=== PATIENT | female | born 1985 | race African-American/Black ===

== ENCOUNTER 2018-08-20 04:06 | Emergency (ER) | payer OTHER ==
[2018-08-20 06:31] LABS: BASO % 0.5 % (0.0-1.0); EOS # 0.2 10^3/uL (0.0-0.50); EOS % 2.6 % (0.0-3.0); HEMATOCRIT 37.4 % (36.0-47.0); HEMOGLOBIN 12.2 g/dl (12.0-15.5); IMMATURE GRANULOCYTE % 0.3 % (0-3.0); LYMPH # 3.5 10^3/uL (1.5-4.5); LYMPH % 45.6 % (24.0-44.0); MEAN CORPUSCULAR HGB CONC 32.6 g/dl (32.0-36.5); MONO # 0.6 10^3/uL (0.0-0.8); MONO % 7.3 % (0.0-5.0); NEUTROPHILS # 3.3 10^3/uL (1.8-7.7); NEUTROPHILS % 43.7 % (36.0-66.0); PLATELET COUNT, AUTOMATED 381 10^3/uL (150-450); RED CELL DISTRIBUTION WIDTH 13.2 % (11.5-14.5); WHITE BLOOD COUNT 7.7 10^3/uL (4.0-10.0)
[2018-08-20 07:01] LABS: ANION GAP 10 MEQ/L (8-16); BLOOD UREA NITROGEN 8 MG/DL (7-18); CALCIUM LEVEL 9.6 MG/DL (8.5-10.1); CARBON DIOXIDE LEVEL 24 MEQ/L (21-32); CHLORIDE LEVEL 105 MEQ/L (98-107); GLOMERULAR FILTRATION RATE > 60.0 (>60); GLUCOSE, FASTING 90 MG/DL (70-100); HCG, SERUM QUANTITATIVE 4078 MIU/ML; POTASSIUM SERUM 3.8 MEQ/L (3.5-5.1); SODIUM LEVEL 139 MEQ/L (136-145)
[2018-08-20 07:28] LABS: AMORPHOUS SEDIMENT RFX SMALL (NEGATIVE); KETONE, URINE AUTO RFX TRACE mg/dL (NEGATIVE); MUCUS, URINE RFX LARGE (NEGATIVE); NITRITE, URINE AUTO RFX NEGATIVE (NEGATIVE); RBC, URINE AUTO RFX 2 /HPF (0-3); SQUAM EPITHELIAL CELL UR AURFX 24 /HPF (0-6); TRANSITIONAL EPITHELIAL AU RFX 1 /HPF
[2018-08-20 07:40] LABS: LEUKOCYTE ESTERASE UR AUTO RFX 1+ (NEGATIVE); WBC, URINE AUTO RFX 28 /HPF (0-3)
[2018-08-20 08:38] LABS: CHLAMYDIA DNA AMPLIFICATION NEGATIVE (NEGATIVE); GC DNA AMPLIFICATION NEGATIVE (NEGATIVE)
== END 2018-08-20 08:40 | disposition home or self-care (01) ==
LOC: M ED 04:06
DX: O26.891 Other specified pregnancy related conditions, first trimester (principal); R10.2 Pelvic and perineal pain; M54.5 Low back pain; O99.281 Endocrine, nutritional and metabolic diseases complicating pregnancy, first trimester; E28.2 Polycystic ovarian syndrome; Z88.0 Allergy status to penicillin; Z79.899 Other long term (current) drug therapy; Z3A.01 Less than 8 weeks gestation of pregnancy
CPT/HCPCS: 76801

== ENCOUNTER 2018-09-21 16:45 | Emergency (ER) | payer OTHER ==
[~2018-09-21] VITALS: Ht 154.9 cm; Wt 90.9 kg
[~2018-09-21 16:45] MED LIST: LOTE0.5S OU; MACR100C43 PO
[2018-09-21] MEDS ORDERED: ONDANSETRON 4MG/2ML VIAL (J2405) IV ONE ×2 (17:45→19:15)
[2018-09-21] MEDS ORDERED: NS 1,000 ML IV ONE (17:45)
[2018-09-21 18:03] LABS: BASO % 0.6 % (0.0-1.0); EOS # 0.2 10^3/uL (0.0-0.50); EOS % 3.7 % (0.0-3.0); HEMATOCRIT 34.2 % (36.0-47.0); HEMOGLOBIN 11.4 g/dl (12.0-15.5); LYMPH # 2.1 10^3/uL (1.5-4.5); MEAN CORPUSCULAR HEMOGLOBIN 29.6 pg (27.0-33.0); MEAN CORPUSCULAR HGB CONC 33.3 g/dl (32.0-36.5); MEAN CORPUSCULAR VOLUME 88.8 fl (80.0-96.0); MONO # 0.6 10^3/uL (0.0-0.8); MONO % 9.4 % (0.0-5.0); NEUTROPHILS # 3.5 10^3/uL (1.8-7.7); PLATELET COUNT, AUTOMATED 281 10^3/uL (150-450); RED BLOOD COUNT 3.85 10^6/uL (4.00-5.40); WHITE BLOOD COUNT 6.5 10^3/uL (4.0-10.0)
--- NOTE | 2018-09-21 18:54 | REPVR ---
EXAM: US First Trimester, Transabdominal EXAM DATE/TIME: 09/21/2018 6:00 PM CLINICAL HISTORY: 33 years old, female; Signs and symptoms; Lmp or gestational age (in weeks): 10; Other: +(n/v); ; Additional info: Vaginal bleeding TECHNIQUE: Real-time transabdominal obstetrical ultrasound of the maternal pelvis and a first trimester , less than 14 weeks 0 days, with image documentation. COMPARISON: 1ST TRIMESTER US 08/20/2018 6:23 AM FINDINGS: GESTATION: Gestation: There is a single intrauterine gestational sac. Heart rate: Cardiac activity noted at a rate of 163 beats per minute. Placenta: No subchorionic fluid collections noted. Sabattus-Rump length: There is a pole with a crown-rump length measurement of 3.2 cm for a menstrual age of 10 weeks and 1 day. MATERNAL: Uterus: Intrauterine gestational sac as described above Cervix: Unremarkable. Right adnexa: Right ovary not seen as a separate structure. Left adnexa: The left ovary measures 2.7 x 2.9 x 2.7 cm. Intraperitoneal: No intraperitoneal free fluid. IMPRESSION: Single live intrauterine with an estimated menstrual age of 10 weeks and one day. This is concordant with the expected gestational age race on previous ultrasound dated 08/20/2018. 2. No subchorionic fluid collections noted. Electronically signed by: Darcy Matta On 09/21/2018 18:53:49 PM
[2018-09-21] MEDS ORDERED: DICL10TA PO (19:12)
[2018-09-21 20:03] VITALS: BP 124/75
== END 2018-09-21 20:05 | disposition home or self-care (01) ==
LOC: M ED 16:45
DX: O21.9 Vomiting of pregnancy, unspecified (principal); Z88.0 Allergy status to penicillin; Z79.899 Other long term (current) drug therapy; Z79.2 Long term (current) use of antibiotics; Z3A.10 10 weeks gestation of pregnancy
CPT/HCPCS: 76801; 81001; 84702; 85025; 86850; 86900; 86901; 96361; 96374; 96376; 99284; J2405

== ENCOUNTER 2018-10-07 20:18 | Emergency (ER) | payer OTHER ==
[~2018-10-07] VITALS: Ht 165.1 cm; Wt 88.6 kg
[~2018-10-07 20:18] MED LIST changes: +DICL10TA PO
[2018-10-07] MEDS ORDERED: ONDA4TAB5 (20:26)
[2018-10-07] MEDS ORDERED: PREN27TA3 (20:26)
[2018-10-07] MEDS ORDERED: NS 1,000 ML IV ONE (21:15)
[2018-10-07 21:49] LABS: HEMATOCRIT 33.5 % (36.0-47.0); HEMOGLOBIN 11.3 g/dl (12.0-15.5); MEAN CORPUSCULAR HEMOGLOBIN 29.2 pg (27.0-33.0); MEAN CORPUSCULAR HGB CONC 33.7 g/dl (32.0-36.5); MEAN CORPUSCULAR VOLUME 86.6 fl (80.0-96.0); PLATELET COUNT, AUTOMATED 282 10^3/uL (150-450); RED BLOOD COUNT 3.87 10^6/uL (4.00-5.40); WHITE BLOOD COUNT 7.6 10^3/uL (4.0-10.0)
[2018-10-07] MEDS ORDERED: METOCLOPRAMIDE INJ 10MG/2ML VIAL (J2765) IV ONE (22:00)
[2018-10-07 22:13] LABS: BLOOD UREA NITROGEN 7 MG/DL (7-18); CALCIUM LEVEL 9.1 MG/DL (8.5-10.1); CARBON DIOXIDE LEVEL 25 MEQ/L (21-32); CHLORIDE LEVEL 103 MEQ/L (98-107); CREATININE FOR GFR 0.81 MG/DL (0.55-1.30); GLOMERULAR FILTRATION RATE > 60.0 (>60); GLUCOSE, FASTING 98 MG/DL (70-100); POTASSIUM SERUM 3.5 MEQ/L (3.5-5.1); SODIUM LEVEL 139 MEQ/L (136-145)
[2018-10-07] MEDS ORDERED: diphenhydrAMINE INJ 50MG/ML VIAL (J1200) IV ONE (23:00)
[2018-10-07] MEDS ORDERED: REGL10TA6 PO (23:19)
[2018-10-07 23:59] VITALS: BP 122/68
== END 2018-10-08 00:23 | disposition home or self-care (01) ==
LOC: M ED 20:18
DX: O21.0 Mild hyperemesis gravidarum (principal); Z3A.13 13 weeks gestation of pregnancy; O99.281 Endocrine, nutritional and metabolic diseases complicating pregnancy, first trimester; E28.2 Polycystic ovarian syndrome; Z79.899 Other long term (current) drug therapy; Z88.0 Allergy status to penicillin
CPT/HCPCS: 80048; 85027; 96361; 96374; 96375; 99284; J1200; J2765

== ENCOUNTER 2018-10-26 13:43 | Inpatient (IN) | payer OTHER ==
[~2018-10-26] VITALS: Ht 154.9 cm; Wt 83.7 kg
[~2018-10-26 13:43] MED LIST changes: +ONDA4TAB5; +PREN27TA3 PO; +REGL10TA6 PO
[2018-10-26] MEDS ORDERED: PROM25SU (13:52)
[2018-10-26] MEDS ORDERED: ONDANSETRON 4MG/2ML VIAL (J2405) IV ONE (14:30)
[2018-10-26] MEDS ORDERED: NS 1,000 ML IV ONE ×2 (14:30→17:15)
[2018-10-26 16:05] LABS: BASO % 0.6 % (0.0-1.0); EOS % 0.5 % (0.0-3.0); HEMATOCRIT 34.7 % (36.0-47.0); HEMOGLOBIN 12.1 g/dl (12.0-15.5); LYMPH # 1.5 10^3/uL (1.5-4.5); LYMPH % 23.1 % (24.0-44.0); MEAN CORPUSCULAR HEMOGLOBIN 29.3 pg (27.0-33.0); MEAN CORPUSCULAR HGB CONC 34.9 g/dl (32.0-36.5); MONO # 0.8 10^3/uL (0.0-0.8); MONO % 12.3 % (0.0-5.0); NEUTROPHILS # 4.1 10^3/uL (1.8-7.7); NEUTROPHILS % 63.2 % (36.0-66.0); PLATELET COUNT, AUTOMATED 250 10^3/uL (150-450); RED BLOOD COUNT 4.13 10^6/uL (4.00-5.40); WHITE BLOOD COUNT 6.4 10^3/uL (4.0-10.0)
[2018-10-26 16:43] LABS: ALBUMIN 3.7 GM/DL (3.2-5.2); BILIRUBIN,TOTAL 0.3 MG/DL (0.2-1.0); CALCIUM LEVEL 9.4 MG/DL (8.5-10.1); CREATININE FOR GFR 3.66 MG/DL (0.55-1.30); GLOMERULAR FILTRATION RATE 18.5 (>60); POTASSIUM SERUM 2.5 MEQ/L (3.5-5.1)
[2018-10-26] MEDS ORDERED: KCL 10MEQ/100ML SWI (KRUN) 10 MEQ in APPROPRIATE DILUENT 1 EA IV ONE (17:00)
[2018-10-26] MEDS ORDERED: POTASSIUM CHLORIDE 10 MEQ SR TABLET PO ONE (17:45)
[2018-10-26] MEDS ORDERED: METO10TA2 PO (17:59)
[2018-10-26] MEDS ORDERED: ONDA4TAB5 PO (17:59)
[2018-10-26] MEDS ORDERED: DICL10TA PO (17:59)
[2018-10-26] MEDS ORDERED: PROM25SU PR (17:59)
[2018-10-26] MEDS ORDERED: NS 1,000 ML IV SCH (18:04)
[2018-10-26] MEDS ORDERED: METOCLOPRAMIDE 10 MG TAB PO PRN (18:15)
[2018-10-26] MEDS ORDERED: PROMETHAZINE 25 MG SUPP PR PRN (18:15)
--- NOTE | 2018-10-26 19:28 | HPEPDOC ---
[facility] Medical History & Physical Date of Admission Oct 26, 2018 Other Provider Patient follows with Romero Sheldon CHAIR POST MACHINE OPERATOR Attending Physician: KHRIS BOWDEN MD History and Physical CHIEF COMPLAINT: Nausea and vomiting HISTORY OF PRESENT ILLNESS: Patient is a 33 year old female, at 15 weeks of gestation, presented to emergency room with nausea and vomiting. Patient had previously presented to the ED on 2 separate occasions for nausea and vomiting during this . Both times she was given IV fluids and anti-emetics and discharged. Patient states that her last appointment with her CHAIR POST MACHINE OPERATOR was on 10/18/18. At that appointment. She was encouraged to continue her Zofran, Reglan, and was prescribed phenadoz suppository at her most resent appointment. She presents today with complaints of extreme nausea and vomiting that has been worsening. She has been unable to tolerate any by mouth solids and liquids. Initial examination revealed a normotensive, tachycardic female , gravid female, saturating and 98% on room air, labs showed sodium level of 133, with potassium of 2.5, BUNs of 37, creat inine of 3.66. She admitted to dizziness, lightheadedness and lethargy. She denied chest pain and shortness of breath. Hospitalist team was called for admission due to acute kidney injury most likely secondary to hyperemesis gravidarum. As well as hypokalemia. . She was given potassium replacement, as well as IV Zofran prior to admission PAST MEDICAL HISTORY: Polycystic ovarian syndrome Hyperemesis gravidarum PAST SURGICAL HISTORY: Cornea transplant surgery Breast reduction SOCIAL HISTORY: Lives at home, with her , denies smoking, denies alcohol use. FAMILY HISTORY: Noncontributory ALLERGIES: Please see below. REVIEW OF SYSTEMS: CONSTITUTIONAL: No fevers, denies chills, denies weight loss, admits lethargy HEENT: No rhinorrhea, no itchy eyes, no congesion, CARDIOVASCULAR: No murmurs no palpitations and arrhythmias, no chest pain RESPIRATORY: No SOB, admits to occasional cough GASTROINTESTINAL: No nausea, no diarhea ,no difficulty swallowing, no pain with eating, positive for nausea and vomiting HEMATOLOGICAL: No bleeding GENITOURINARY:No Issues PHYSICAL EXAMINATION: Vitals: See Below GENERAL APPEARANCE: Alert, female, holding an emesis bag, repeat spitting into an emesis bag SKIN: Warm, well perfused. Capillary refills intact, no fevers ENT: Neck supple, no thyromegaly, throat is moist LUNGS: Clear to auscultation bilaterally. HEART: Normal S1, S2. No murmurs, no rubs, no gallops ABDOMEN: Soft. No masses. Gravid abdomen EXTREMITIES: Moves all extremities equally. No gross deformities. PULSES: 2+ upper and lower extremity . HOME MEDICATIONS: Please see below. LABORATORY DATA: See below. ASSESSMENT: A 33-year-old female, , with a past medical history of hyperemesis gravidarum, as well as PCOS presenting with nausea and vomiting. Initial laboratory evaluation patient had an elevated BUN/creatinine from her baseline along with hypokalemia. She will be admitted for acute kidney injury most likely secondary to emesis and dehydration. PLAN: # Hypovolemia 2/2 Nausea and vomiting 2/2 hyperemesis gravidarum -IV Zofran -By mouth Reglan, patient cannot tolerate IV Reglan due to agitated behavior -IV hydration with half NS. -Pyridoxine 25 mg # CRISS, 2/2 dehydration, 2/2 emesis, - Baseline .90 in 10/07/18 - IV fluids, half-normal saline with 40 mg of potassium -Check BMP every 4 hours, once potassium normalized switch to normal saline -Renal US pending -UA pending - Nephrology consult # Gravid status (15 weeks) -Consult OB -OB ultrasound - Heart rate Q12H #Hypokalemia 2/2 -Received 40 mEq of potassium by mouth, as well as 10 mEq of potassium replacement via IV -Half-normal saline with 40 Lewis of K - BMP Q4H Vital Signs Vital Signs Date Time Temp Pulse Resp B/P (MAP) Pulse Ox O2 Delivery O2 Flow Rate FiO2 10/26/18 14:09 10/26/18 13:43 98.1 107 18 98 Room Air Laboratory Data Labs 24H Laboratory Tests 2 10/26/18 16:00: Immature Granulocyte % (Auto) 0.3, White Blood Count 6.4, Red Blood Count 4.13, Hemoglobin 12.1, Hematocrit 34.7L, Mean Corpuscular Volume 84.0, Mean Corpuscular Hemoglobin 29.3, Mean Corpuscular Hemoglobin Concent 34.9, Red Cell Distribution Width 12.5, Platelet Count 250, Neutrophils (%) (Auto) 63.2, Lymphocytes (%) (Auto) 23.1L, Monocytes (%) (Auto) 12.3H, Eosinophils (%) (Auto) 0.5, Basophils (%) (Auto) 0.6, Neutrophils # (Auto) 4.1, Lymphocytes # (Auto) 1.5, Monocytes # (Auto) 0.8, Eosinophils # (Auto) 0.0, Basophils # (Auto) 0.0, Nucleated Red Blood Cells % (auto) 0.0, Anion Gap 17H, Glomerular Filtration Rate 18.5L, Blood Urea Nitrogen 37H, Creatinine 3.66H, Sodium Level 133L, Po tassium Level 2.5*L, Chloride Level 94L, Carbon Dioxide Level 22, Calcium Level 9.4, Aspartate Amino Transf (AST/SGOT) 18, Alanine Aminotransferase (ALT/SGPT) 21, Alkaline Phosphatase 53, Total Bilirubin 0.3, Total Protein 7.0, Albumin 3.7, Albumin/Globulin Ratio 1.12 CBC/BMP Laboratory Tests 10/26/18 16:00 Red Blood Count 4.13, Mean Corpuscular Volume 84.0, Mean Corpuscular Hemoglobin 29.3, Mean Corpuscular Hemoglobin Concent 34.9, Red Cell Distribution Width 12.5, Neutrophils (%) (Auto) 63.2, Lymphocytes (%) (Auto) 23.1 L, Monocytes (%) (Auto) 12.3 H, Eosinophils (%) (Auto) 0.5, Basophils (%) (Auto) 0.6, Neutrophils # (Auto) 4.1, Lymphocytes # (Auto) 1.5, Monocytes # (Auto) 0.8, Eosinophils # (Auto) 0.0, Basophils # (Auto) 0.0, Calcium Level 9.4, Aspartate Amino Transf (AST/SGOT) 18, Alanine Aminotransferase (ALT/SGPT) 21, Alkaline Phosphatase 53, Total Bilirubin 0.3, Total Protein 7.0, Albumin 3.7 Home Medications Scheduled (Diclegis 10-10 mg) 1 Tab Tab, 1 TAB PO QHS Multivitamins/ ( 27-1 mg) 1 Tab Tab, 1 TAB PO DAILY Scheduled PRN Metoclopramide HCl (Metoclopramide HCl) 10 Mg Tab, 10 MG PO Q6H PRN for NAUSEA Ondansetron HCl (Ondansetron HCl) 4 Mg Tab, 4 MG PO TID PRN for NAUSEA Promethazine HCl (Phenadoz) 25 Mg Sup, 25 MG NE DAILY PRN for NAUSEA Allergies Coded Allergies: Penicillins (Verified Allergy, Severe, HIVES, 08/20/18) GME ATTESTATION GME ATTESTATION My faculty preceptor for this patient encounter was physically present during the encounter and was fully available. All aspects of the patient interview, examination, medical decision making process, and medical care plan development were reviewed and approved by the faculty preceptor. The faculty preceptor is aware and concurs with the plan as stated in the body of this note and will attest to such by his/her cosignature. ATTENDING NOTE I have both independently examined this patient as well as reviewed the h and P . I have discussed in detail with the resident the findings and plan of treatment as documented in the resident's note. I will continue to follow the patient and offer further guidance to the patient's care as necessary during this hospital stay. exception - Patient should be on normal saline not half NS , for fluid resuci ATIYA Molina DO Oct 26, 2018 19:28 KHRIS BOWDEN MD Oct 27, 2018 13:09
[2018-10-26 19:29] LABS: CALCIUM LEVEL 8.4 MG/DL (8.5-10.1); CREATININE FOR GFR 3.08 MG/DL (0.55-1.30); GLOMERULAR FILTRATION RATE 22.6 (>60); MAGNESIUM LEVEL 1.9 MG/DL (1.8-2.4); POTASSIUM SERUM 2.7 MEQ/L (3.5-5.1)
[2018-10-26] MEDS: POTASSIUM CHLORIDE INJ 40 MEQ in NS 0.45% 1,000 ML IV SCH (20:58)
--- NOTE | 2018-10-26 21:48 | REPVR ---
EXAM: US Retroperitoneal Limited, Kidneys EXAM DATE/TIME: 10/26/2018 8:46 PM CLINICAL HISTORY: 33 years old, female; Abnormal findings; Abnormal lab test; Other: Dehydration; ; Additional info: Lonnie in TECHNIQUE: Real-time ultrasound of the retroperitoneum with image documentation. Examination was focused on the kidneys. COMPARISON: 1ST TRIMESTER US 09/21/2018 6:07 PM FINDINGS: Gallbladder: Sludge and tiny stones are present within the gallbladder. No gallbladder wall thickening or pericholecystic fluid collection is identified. Common bile duct: The common bile duct is normal measuring 2.9 mm. Right kidney: The right kidney is normal in size, shape and echotexture. It measures 9.4 cm in length. No right renal stone, focal renal lesion or hydronephrosis is identified. Left kidney: The left kidney is normal in size, shape and echotexture. It measures 9.8 cm in length. No left renal stone, focal renal lesion or hydronephrosis is identified. Bladder: The bladder is unremarkable as visualized. No focal urinary bladder wall lesion is seen. IMPRESSION: 1. Cholelithiasis. 2. No hydronephrosis. Electronically signed by: Satish Pinzon On 10/26/2018 21:48:16 PM
[2018-10-26] MEDS: ONDANSETRON 4MG/2ML VIAL (J2405) IV PRN (22:16)
[2018-10-27 00:20] VITALS: BP 133/68
[2018-10-27] MEDS ORDERED: PILL CRUSHER/CUTTER 1 EACH XX PRN (00:30)
[2018-10-27 00:36] LABS: CALCIUM LEVEL 8.3 MG/DL (8.5-10.1); CREATININE FOR GFR 2.6 MG/DL (0.55-1.30); GLOMERULAR FILTRATION RATE 27.5 (>60); POTASSIUM SERUM 2.6 MEQ/L (3.5-5.1)
[2018-10-27] MEDS ORDERED: diphenhydrAMINE 25 MG CAP PO ONE (00:45)
[2018-10-27] MEDS ORDERED: POTASSIUM CHLORIDE 10 MEQ SR TABLET PO ONE ×3 (00:45→13:45)
[2018-10-27 04:00] VITALS: BP 132/132
[2018-10-27 04:44] LABS: HEMATOCRIT 26.5 % (36.0-47.0); MEAN CORPUSCULAR HEMOGLOBIN 29.7 pg (27.0-33.0); MEAN CORPUSCULAR HGB CONC 35.5 g/dl (32.0-36.5); MEAN CORPUSCULAR VOLUME 83.6 fl (80.0-96.0); PLATELET COUNT, AUTOMATED 197 10^3/uL (150-450); RED BLOOD COUNT 3.17 10^6/uL (4.00-5.40); WHITE BLOOD COUNT 8.5 10^3/uL (4.0-10.0)
[2018-10-27 04:45] LABS: HEMOGLOBIN 9.4 g/dl (12.0-15.5)
[2018-10-27 05:03] LABS: CALCIUM LEVEL 7.9 MG/DL (8.5-10.1); CREATININE FOR GFR 2.24 MG/DL (0.55-1.30); GLOMERULAR FILTRATION RATE 32.7 (>60); POTASSIUM SERUM 2.6 MEQ/L (3.5-5.1)
[2018-10-27] MEDS ORDERED: KCL 20MEQ IN 100ML SWI (KRUN) 20 MEQ in APPROPRIATE DILUENT 1 EA IV SCH ×6 (05:15→20:45)
[2018-10-27] MEDS: KCL 10MEQ/100ML SWI (KRUN) 100 ML IV SCH ×4 (05:28→22:00)
[2018-10-27] MEDS: ONDANSETRON 4MG/2ML VIAL (J2405) IV PRN ×3 (05:28→18:09)
[2018-10-27 08:00] VITALS: BP 124/66
[2018-10-27] MEDS: PROMETHAZINE 25 MG SUPP PR PRN ×2 (08:15→20:18)
[2018-10-27 08:37] LABS: CALCIUM LEVEL 8.1 MG/DL (8.5-10.1); GLOMERULAR FILTRATION RATE 37.2 (>60); POTASSIUM SERUM 2.9 MEQ/L (3.5-5.1)
[2018-10-27] MEDS: POTASSIUM CHLORIDE INJ 40 MEQ in NS 0.45% 1,000 ML IV SCH (08:40)
[2018-10-27 08:46] LABS: MAGNESIUM LEVEL 1.7 MG/DL (1.8-2.4)
[2018-10-27] MEDS ORDERED: PYRIDOXINE 50 MG TAB PO SCH (09:00)
[2018-10-27] MEDS ORDERED: MAG SULF 1GM/100ML (MAG RUN) 1 GM in APPROPRIATE DILUENT 1 EA IV ONE (09:00)
[2018-10-27] MEDS ORDERED: INFLUENZA QUADRIVALENT PF VACCINE 0.5ML SYRINGE (90686) IM ONE (09:00)
--- NOTE | 2018-10-27 09:50 | REP ---
Obstetric sonography: History: Evaluate status. Comparison sonography September 21 2018. Findings: Transabdominal scanning demonstrates a non living intrauterine fetus in a breech feet lie. No motion or cardiac motion is observed. The placenta is fundal without evidence of previa or abruption, grade zero. Amniotic fluid is subjectively normal. Closed cervical length measured transabdominally is 3.8 cm. No extrauterine abnormalities observed. There is some evidence of mild subcutaneous edema in the fetus. Biometry chart: BPD 3.4 cm, 16 weeks 3 days Head circumference 12.3 cm, 16 weeks 1 day Abdominal circumference 10.7 cm, 16 weeks 4 days Femur length 1.8 cm, 15 weeks 3 days Humeral length 1.9 cm, 15 weeks 4 days HC/AC ratio normal 1.15 Cephalic index normal 0.77 Estimated weight 143 grams, 0 pounds 5 ounces, 49th percentile for 8 weeks 5 days Impression: Intrauterine demise at 16 weeks 0 days by composite sonographic criteria. Electronically Signed by Raymond Ambriz MD 10/27/2018 09:42 A
[2018-10-27] MEDS: PRENATAL VITAMINS CHEWABLE TABLET PO SCH ×2 (09:54→09:56)
[2018-10-27] MEDS: PYRIDOXINE 50 MG TAB PO SCH ×3 (09:55→20:18)
--- NOTE | 2018-10-27 10:59 | IPNPDOC ---
Text Note Date of Service The patient was seen on 10/27/18. NOTE Consult form hospitalist service Asked by Dr Whitney last night to consult on this pt who is ~15-16 weeks with severe hyperemesis gravidarum and likely acute kidney illness. Has been receiving appropriate IF fluids overnight and also appropriate potassium and magnesium supplementation by the hospitalist team. Her GFR has been steadily increasing and her creatinine steadily decreasing under their care. She is written for IV Zofran, PO Reglan, and LA Phenergan, all of which seem to be helping slightly. Unfortunately, this morning a US revealed a demise, see report below. I spoke with Dr Us, the hospitalist, and he agreed to continue to manage her fluid status and electrolytes, which is much appreciated. Once these are improved significantly, we will plan on inducing labor/delivery on L&D. The labor and delivery nurse Dr Muñoz is also going to see this pt this morning as I am concerned about an underlying renal issue as it is very unlikely that simple hyperemesis caused her kidneys to decrease their function to this degree. There is no doubt however that her hyperemesis/dehydration has contributed to her renal dysfunction. I plan to discuss her status and the plan with Dr Muñoz later today. Renal US last night: CLINICAL HISTORY: 33 years old, female; Abnormal findings; Abnormal lab test; Other: Dehydration; ; Additional info: Lonnie in TECHNIQUE: Real-time ultrasound of the retroperitoneum with image documentation. Examination was focused on the kidneys. COMPARISON: 1ST TRIMESTER US 09/21/2018 6:07 PM FINDINGS: Gallbladder: Sludge and tiny stones are present within the gallbladder. No gallbladder wall thickening or pericholecystic fluid collection is identified. Common bile duct: The common bile duct is normal measuring 2.9 mm. Right kidney: The right kidney is normal in size, shape and echotexture. It measures 9.4 cm in length. No right renal stone, focal renal lesion or hydronephrosis is identified. Left kidney: The left kidney is normal in size, shape and echotexture. It measures 9.8 cm in length. No left renal stone, focal renal lesion or hydronephrosis is identified. Bladder: The bladder is unremarkable as visualized. No focal urinary bladder wall lesion is seen. IMPRESSION: 1. Cholelithiasis. 2. No hydronephrosis. US this morning: Obstetric sonography: History: Evaluate status. Comparison sonography September 21 2018. Findings: Transabdominal scanning demonstrates a non living intrauterine fetus in a breech feet lie. No motion or cardiac motion is observed. The placenta is fundal without evidence of previa or abruption, grade zero. Amniotic fluid is subjectively normal. Closed cervical length measured transabdominally is 3.8 cm. No extrauterine abnormalities observed. There is some evidence of mild subcutaneous edema in the fetus. Biometry chart: BPD 3.4 cm, 16 weeks 3 days Head circumference 12.3 cm, 16 weeks 1 day Abdominal circumference 10.7 cm, 16 weeks 4 days Femur length 1.8 cm, 15 weeks 3 days Humeral length 1.9 cm, 15 weeks 4 days HC/AC ratio normal 1.15 Cephalic index normal 0.77 Estimated weight 143 grams, 0 pounds 5 ounces, 49th percentile for 8 weeks 5 days Impression: Intrauterine demise at 16 weeks 0 days by composite sonographic criteria. VS,Fishbone, I+O VS, Fishbone, I+O Laboratory Tests 10/26/18 16:00 Red Blood Count 4.13, Mean Corpuscular Volume 84.0, Mean Corpuscular Hemoglobin 29.3, Mean Corpuscular Hemoglobin Concent 34.9, Red Cell Distribution Width 12.5, Neutrophils (%) (Auto) 63.2, Lymphocytes (%) (Auto) 23.1 L, Monocytes (%) (Auto) 12.3 H, Eosinophils (%) (Auto) 0.5, Basophils (%) (Auto) 0.6, Neutrophils # (Auto) 4.1, Lymphocytes # (Auto) 1.5, Monocytes # (Auto) 0.8, Eosinophils # (Auto) 0.0, Basophils # (Auto) 0.0, Calcium Level 9.4, Aspartate Amino Transf (AST/SGOT) 18, Alanine Aminotransferase (ALT/SGPT) 21, Alkaline Phosphatase 53, Total Bilirubin 0.3, Total Protein 7.0, Albumin 3.7 10/26/18 18:47 Calcium Level 8.4 L 10/26/18 23:51 Calcium Level 8.3 L 10/27/18 04:30 Red Blood Count 3.17 L, Mean Corpuscular Volume 83.6, Mean Corpuscular Hemoglobin 29.7, Mean Corpuscular Hemoglobin Concent 35.5, Red Cell Distribution Width 12.4, Calcium Level 7.9 L 10/27/18 08:01 Calcium Level 8.1 L Vital Signs Date Time Temp Pulse Resp B/P (MAP) Pulse Ox O2 Delivery O2 Flow Rate FiO2 10/27/18 08:00 98.0 98 18 124/66 (85) 100 10/26/18 22:18 Room Air I&O- Last 24 Hours up to 6 AM 10/27/18 06:00 Intake Total 1940 ml Output Total 1050 ml Balance 890 ml SESSIONS,CARISSA Kenney MD Oct 27, 2018 10:58
[2018-10-27 12:00] VITALS: BP 147/77
[2018-10-27 13:09] LABS: CALCIUM LEVEL 8.7 MG/DL (8.5-10.1); CREATININE FOR GFR 1.78 MG/DL (0.55-1.30); GLOMERULAR FILTRATION RATE 42.6 (>60); POTASSIUM SERUM 2.7 MEQ/L (3.5-5.1)
[2018-10-27] MEDS ORDERED: CALCIUM GLUCONATE 1,000 MG in D5W MINI-BAG PLUS 100 ML IV ONE (13:15)
--- NOTE | 2018-10-27 14:38 | IPNPDOC ---
Text Note Date of Service The patient was seen on 10/27/18. NOTE Subjective: Patient states she feels well today. Tolerating a liquid diet. No abdominal pain. No nausea or vomiting this morning. Objective: Vitals: (see below) General: No acute distress, laying comfortably in bed. HEENT: Moist mucous membranes. Neck: No JVD or lymphadenopathy Cardiac: RRR, No murmurs Pulm: Clear to auscultation b/l. No wheezing, rhonchi Abd: NT/ND + BS Ext: No edema or cyanosis Labs (see below) Renal ultrasound on 10/26/18 IMPRESSION: 1. Cholelithiasis. 2. No hydronephrosis. Assessment/Plan 1. Hypokalemia/hypomagnesemia/acute renal failure- likely secondary to dehydration. Improving with IV fluids. Avoid NSAIDs. Potassium replacement. Renal ultrasound with no obstruction. Appreciate nephrology input. We'll closely monitor renal function/electrolytes. Continue to monitor on telemetry. 2. Hyperemesis gravidarum- nausea and vomiting improved. Patient tolerating liquid diet. We'll advance as tolerated. 3. demise- discussed with Dr. Del Rio, who notes that the patient had demise on ultrasound. Dr. del rio plans on taking the patient's onto his service once her renal function and potassium levels improve, so that he may perform induction. DVT prophy: SCDs VS,Fishbone, I+O VS, Fishbone, I+O Laboratory Tests 10/26/18 16:00 Red Blood Count 4.13, Mean Corpuscular Volume 84.0, Mean Corpuscular Hemoglobin 29.3, Mean Corpuscular Hemoglobin Concent 34.9, Red Cell Distribution Width 12.5, Neutrophils (%) (Auto) 63.2, Lymphocytes (%) (Auto) 23.1 L, Monocytes (%) (Auto) 12.3 H, Eosinophils (%) (Auto) 0.5, Basophils (%) (Auto) 0.6, Neutrophils # (Auto) 4.1, Lymphocytes # (Auto) 1.5, Monocytes # (Auto) 0.8, Eosinophils # (Auto) 0.0, Basophils # (Auto) 0.0, Calcium Level 9.4, Aspartate Amino Transf (AST/SGOT) 18, Alanine Aminotransferase (ALT/SGPT) 21, Alkaline Phosphatase 53, Total Bilirubin 0.3, Total Protein 7.0, Albumin 3.7 10/26/18 18:47 Calcium Level 8.4 L 10/26/18 23:51 Calcium Level 8.3 L 10/27/18 04:30 Red Blood Count 3.17 L, Mean Corpuscular Volume 83.6, Mean Corpuscular Hemoglobin 29.7, Mean Corpuscular Hemoglobin Concent 35.5, Red Cell Distribution Width 12.4, Calcium Level 7.9 L 10/27/18 08:01 Calcium Level 8.1 L 10/27/18 12:12 Calcium Level 8.7 Vital Signs Date Time Temp Pulse Resp B/P (MAP) Pulse Ox O2 Delivery O2 Flow Rate FiO2 10/27/18 12:00 98.6 98 20 147/77 (100) 100 10/26/18 22:18 Room Air I&O- Last 24 Hours up to 6 AM 10/27/18 06:00 Intake Total 1940 ml Output Total 1050 ml Balance 890 ml FRANCISCO YOUNG MD Oct 27, 2018 14:38
[2018-10-27 16:00] VITALS: BP 139/81
[2018-10-27] MEDS ORDERED: diphenhydrAMINE INJ 50MG/ML VIAL (J1200) IV ONE (16:00)
[2018-10-27 16:31] LABS: CALCIUM LEVEL 9.3 MG/DL (8.5-10.1); CREATININE FOR GFR 1.71 MG/DL (0.55-1.30); GLOMERULAR FILTRATION RATE 44.6 (>60); POTASSIUM SERUM 2.7 MEQ/L (3.5-5.1)
[2018-10-27] MEDS: KCL 10MEQ/100ML SWI (KRUN) 10 MEQ in APPROPRIATE DILUENT 1 EA IV SCH ×2 (16:38→18:08)
[2018-10-27 20:00] VITALS: BP 144/84
[2018-10-27 20:28] LABS: CALCIUM LEVEL 8.9 MG/DL (8.5-10.1); CREATININE FOR GFR 1.52 MG/DL (0.55-1.30); GLOMERULAR FILTRATION RATE 51.1 (>60); POTASSIUM SERUM 2.7 MEQ/L (3.5-5.1)
[2018-10-27] MEDS ORDERED: POTASSIUM CHLORIDE IV SCH (22:15)
[2018-10-27] MEDS ORDERED: D5W IV SCH (22:15)
[2018-10-27] MEDS ORDERED: SODIUM CHLORIDE IV SCH (22:15)
--- NOTE | 2018-10-27 23:53 | CR ---
DATE OF CONSULTATION: 10/27/2018 REQUESTING PHYSICIAN: Dr. Hansel Us CONSULTING PHYSICIAN: Dr. Muñoz REASON FOR CONSULTATION: Management of acute renal failure and multiple electrolyte abnormalities. CHIEF COMPLAINT: The patient was admitted to the hospital yesterday with persistent nausea and vomiting. HISTORY OF THE PRESENT ILLNESS: Lesley Ramachandran is a 33-year-old female who is 1, para 0. She was 15 weeks . She presented to the emergency room yesterday with a more than 2-week history of persistent nausea and vomiting. She was unable to keep anything down. She is persistently spitting all the time. She has come to the emergency room twice for the same symptoms. She was given intravenous (IV) fluid hydration and antiemetics and sent home. The patient was taking Zofran, Reglan, and Phenadoz suppository at home for severe nausea and vomiting, but even then, it was not helping her. When she presented to the hospital, she was very tachycardic, was dry. She was complaining of dizziness and lightheadedness. Further evaluation done in the emergency room showed that the patient had severe hypokalemia with a potassium of 2.5. She was in acute renal failure with a creatinine of 3.6. She was hyponatremic with a sodium of 133. The patient was admitted under the hospitalist service yesterday. The case was discussed with myself by the admitting resident, and after assessing the patient's history and looking at the labs, the plan was made to give the patient potassium-containing fluid, to check her BMP every 4 hours, and aggressively replete her potassium. I saw and evaluated the patient today, morning, at the bedside. Her was also present at the bedside. The patient was sitting up and still persistently spitting out. The patient reports that she feels slightly better today as compared with yesterday. She remains hyponatremic and her sodium levels are improving. Her renal function is also improving with the aggressive IV fluid hydration. Her urine output is getting better. PAST MEDICAL HISTORY: Polycystic ovarian syndrome. Recent diagnosis of hyperemesis gravidarum. PAST SURGICAL HISTORY: History of bilateral breast reduction surgery. 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 ALLERGIES: The patient is allergic to PENICILLIN. FAMILY HISTORY: No significant family history of end-stage renal disease requiring hemodialysis. SOCIAL HISTORY: The patient lives at home. She denies any illicit drug abuse, smoking, or alcohol abuse. REVIEW OF SYSTEMS: CONSTITUTIONAL: The patient reports feeling very weak and tired. EYES: She denies any blurry vision, double vision. She does report a history of corneal transplant. ENT: She denies any dysphagia or odynophagia. CARDIOVASCULAR: She denies any chest pain or palpitations. RESPIRATORY: She denies any shortness of breath or cough. GASTROINTESTINAL: She reports persistent nausea, vomiting. She denies any abdominal pain. GENITOURINARY: She denies any dysuria or hematuria. MUSCULOSKELETAL: She denies any muscle aches and pains. CENTRAL NERVOUS SYSTEM (QUALITY ASSURANCE ASSOCIATE): She denies any strokes or seizures. HEMATOLOGICAL/ONCOLOGICAL: She denies any easy bleeding or bruising. ENDOCRINE: She denies any history of hyperthyroidism or hypothyroidism. PSYCHIATRIC: She denies any depression or anxiety. All other review of systems is negative. PHYSICAL EXAMINATION: GENERAL: The patient is awake, alert, oriented times three, sitting up in the bed, constantly spitting. VITAL SIGNS: Temperature is 98.6 degrees Fahrenheit, blood pressure is 147/77, pulse is 98, respiratory rate of 20, saturating 100% on room air. HEAD AND NECK EXAM: Extraocular muscles intact. Pupils equally round and reactive to light. Mucous membranes are moist. Neck is supple. There is no jugular venous distention (JVD). CARDIOVASCULAR: S1, S2. Regular rate. No murmur, rub or gallop. No edema of the bilateral lower extremities. RESPIRATORY: Chest is clear to auscultation bilaterally. Bilateral equal air entry. No rales or rhonchi. ABDOMEN: Soft. Positive bowel sounds. No organomegaly. Gravid uterus is palpable in the suprapubic region. MUSCULOSKELETAL: No clubbing or cyanosis. Pulses are 2+. QUALITY ASSURANCE ASSOCIATE: No focal deficit. Power is 5/5 in all extremities. LAB REVIEW: CBC showed a WBC of 8.5, hemoglobin 9.4, platelets are 197. A BMP on admission showed sodium 133, potassium 2.5, chloride 94, bicarbonate 22, BUN 37, creatinine 3.6, albumin 7, amylase 92, lipase 111. Urinalysis done on admission showed it was cloudy with 1+ protein, 1+ ketones, 16 WBCs, 2+ bacteria. A repeat BMP so far up until today evening showed sodium 136, potassium 2.7, chloride 105, bicarbonate 22, BUN 20, creatinine is 1.5, glucose 109, calcium is 8.9, whole blood ionized calcium is 4.9. Microbiology: Urine culture is negative. IMAGING: A renal ultrasound was done yesterday, which showed cholelithiasis, no hydronephrosis. Obstetric ultrasound was done today, morning. It showed intrauterine demise at 16 weeks. CURRENT INPATIENT MEDICATIONS: The patient's medications were all reviewed by me. She was getting half normal saline plus 40 mEq of KCl at 100 mL an hour. I have increased the rate to 125 mL an hour. She is getting potassium supplementation with oral and IV potassium. I also gave her a dose of calcium gluconate 1 gram IV times one dose. She also got a dose of magnesium sulfate 1 gram IV. She is getting Benadryl, Reglan 10 mg every 8 hours as needed for nausea, vomiting. She is on vitamin, which I am stopping right now. She is on Zofran as needed. She is on pyridoxine 12.5 mg by mouth three times a day, and promethazine suppository. ASSESSMENT: A 33-year-old female with hyperemesis gravidarum, acute renal failure, hyponatremia, hypokalemia, and high anion gap metabolic acidosis on arrival and recent obstetric ultrasound showed intrauterine demise. PLAN: 1. Acute renal failure. It is secondary to dehydration and volume depletion induced by hyperemesis gravidarum. The patient is unable to keep any fluids down. I discussed the fluids with the admitting physician last night already. She is receiving half normal saline plus 40 mEq of KCl at 125 mL an hour now. If potassium level stays low, then I would change the IV fluid with more potassium content. 2. Hypokalemia. It is secondary to persistent vomiting and secondary hyperaldosteronism. The patient has total body potassium depletion because of persistent vomiting and volume depletion. She will need a lot of potassium to replete her stores. She is getting labs every 4 hours and potassium is aggressively being repleted. I see her potassium persistently every 4 hours. It is fluctuating between 2.7 to 2.9. Because of that, I have just changed her fluid to D5 0.2% normal saline with 60 mEq of potassium at 125 mL an hour. Continue to monitor BMPs for now. 3. High anion gap metabolic acidosis. It is secondary to a combination of dehydration, volume depletion, and acute renal failure. No need of IV bicarbonate administration. The patient's bicarbonate level is improving with improvement in the renal function. 4. Hyponatremia. The patient has hypovolemic hyponatremia. Sodium level has nicely improved after IV fluid hydration. 5. Hypomagnesemia. The patient was given magnesium sulfate 1 gram IV times one dose today morning. 6. Hypocalcemia. The patient was given one dose of calcium gluconate 1 gram IV. Ionized calcium level done in the evening is within the normal range now. 7. Hyperemesis gravidarum. The patient is already on Reglan, Zofran, and vitamin B6 as per gynecology service. Continue IV fluid hydration. I have stopped the vitamins now. 8. Intrauterine demise. I discussed the case with Dr. Del Rio. Once the patient's electrolyte abnormalities improve over the next 24-48 hours, the patient will be taken by gynecology service and labor will be induced. 9. Proteinuria. The patient has mild proteinuria on arrival. I am going to repeat the urine protein creatinine ratio tomorrow morning. I have also sent all the proteinuria workup including autoimmune serology to rule out secondary causes of acute renal failure. Thank you for involving me in the care of this patient. I shall be happy to follow the patient along with you tomorrow morning. Total critical care time spent in the management of this patient today, morning, in the progressive care unit (PCU) was 45 minutes.
[2018-10-28] VITALS (7 sets, daily range): BP systolic 127–141; BP diastolic 61–77
[2018-10-28] MEDS: POTASSIUM CHLORIDE INJ 40 MEQ in NS 0.45% 1,000 ML IV SCH ×2 (00:09→09:46)
[2018-10-28] MEDS: KCL 10MEQ/100ML SWI (KRUN) 100 ML IV SCH ×2 (00:09→01:28)
[2018-10-28] MEDS ORDERED: diphenhydrAMINE INJ 50MG/ML VIAL (J1200) IV ONE (00:15)
[2018-10-28 00:31] LABS: BLOOD UREA NITROGEN 19 MG/DL (7-18); CALCIUM LEVEL 8.7 MG/DL (8.5-10.1); CARBON DIOXIDE LEVEL 23 MEQ/L (21-32); CHLORIDE LEVEL 107 MEQ/L (98-107); CREATININE FOR GFR 1.29 MG/DL (0.55-1.30); GLOMERULAR FILTRATION RATE > 60.0 (>60); GLUCOSE, FASTING 103 MG/DL (70-100); SODIUM LEVEL 139 MEQ/L (136-145)
[2018-10-28 00:42] LABS: APPEARANCE, URINE CLEAR (CLEAR); BACTERIA, URINE AUTO 2+ (NEGATIVE); BILIRUBIN, URINE AUTO NEGATIVE (NEGATIVE); BLOOD, URINE BLOOD NEGATIVE (NEGATIVE); COLOR, URINE YELLOW (YELLOW); GLUCOSE, URINE (UA) AUTO NEGATIVE (NEGATIVE); KETONE, URINE AUTO TRACE mg/dL (NEGATIVE); LEUKOCYTE ESTERASE, URINE AUTO NEGATIVE (NEGATIVE); MUCUS, URINE SMALL (NEGATIVE); NITRITE, URINE AUTO NEGATIVE (NEGATIVE); PROTEIN, URINE AUTO NEGATIVE (NEGATIVE); RBC, URINE AUTO 3 /HPF (0-3); SPECIFIC GRAVITY URINE AUTO 1.011 (1.002-1.035); SQUAMOUS EPITHELIAL CELL UR AU 1 /HPF (0-6); WBC, URINE AUTO 5 /HPF (0-3)
[2018-10-28] MEDS: ONDANSETRON 4MG/2ML VIAL (J2405) IV PRN ×3 (00:50→16:29)
[2018-10-28 00:55] LABS: POTASSIUM RANDOM URINE 13.3 MEQ/L; TOTAL PROTEIN,RANDOM URINE 22.2 MG/DL (0.0-12.0)
[2018-10-28 04:04] LABS: HEMATOCRIT 24.3 % (36.0-47.0); HEMOGLOBIN 8.6 g/dl (12.0-15.5); MEAN CORPUSCULAR HEMOGLOBIN 29.6 pg (27.0-33.0); MEAN CORPUSCULAR HGB CONC 35.4 g/dl (32.0-36.5); MEAN CORPUSCULAR VOLUME 83.5 fl (80.0-96.0); PLATELET COUNT, AUTOMATED 182 10^3/uL (150-450); RED BLOOD COUNT 2.91 10^6/uL (4.00-5.40); WHITE BLOOD COUNT 7.1 10^3/uL (4.0-10.0)
[2018-10-28 04:39] LABS: BLOOD UREA NITROGEN 16 MG/DL (7-18); CALCIUM LEVEL 8.3 MG/DL (8.5-10.1); CARBON DIOXIDE LEVEL 21 MEQ/L (21-32); CHLORIDE LEVEL 108 MEQ/L (98-107); COMPLEMENT C3 134 MG/DL (90-180); COMPLEMENT C4 22 MG/DL (10-40); CREATININE FOR GFR 1.11 MG/DL (0.55-1.30); GLOMERULAR FILTRATION RATE > 60.0 (>60); GLUCOSE, FASTING 111 MG/DL (70-100); MAGNESIUM LEVEL 1.8 MG/DL (1.8-2.4); POTASSIUM SERUM 2.9 MEQ/L (3.5-5.1); SODIUM LEVEL 137 MEQ/L (136-145)
[2018-10-28] MEDS ORDERED: KCL 20MEQ IN 100ML SWI (KRUN) 20 MEQ in APPROPRIATE DILUENT 1 EA IV SCH ×2 (05:00)
[2018-10-28] MEDS ORDERED: KCL 10MEQ/100ML SWI (KRUN) 10 MEQ in APPROPRIATE DILUENT 1 EA IV ONE ×2 (05:00→06:00)
--- NOTE | 2018-10-28 08:19 | IPNPDOC ---
Text Note Date of Service The patient was seen on 10/28/18. NOTE Pt continues to improve. 0400 labs: HCT 24.3, PLT 182, K 2.9, Glc 111, BUN 16, Cr 1.1, GFR now appropr at >60. Plan will be for Medicine to cont to replete her K and then to transfer her to L&D hopefully this afternoon for labor. SBAR to Dr Weston, we also met the pt together on bedside rounds. Appreciate medicine and nephrology input and care. Sessions Lindy HOOKS, I+O Lindy RAZA I+O Laboratory Tests 10/27/18 12:12 Calcium Level 8.7 10/27/18 15:45 Calcium Level 9.3 10/27/18 19:53 Calcium Level 8.9 10/27/18 23:55 Calcium Level 8.7 10/28/18 03:56 Red Blood Count 2.91 L, Mean Corpuscular Volume 83.5, Mean Corpuscular Hemoglobin 29.6, Mean Corpuscular Hemoglobin Concent 35.4, Red Cell Distribution Width 12.6, Calcium Level 8.3 L Vital Signs Date Time Temp Pulse Resp B/P (MAP) Pulse Ox O2 Delivery O2 Flow Rate FiO2 10/28/18 04:00 97.8 98 16 128/67 (87) 98 10/26/18 22:18 Room Air I&O- Last 24 Hours up to 6 AM 10/28/18 06:00 Intake Total 3945 ml Output Total 2175 ml Balance 1770 ml SESSIONS,CARISSA Kenney MD Oct 28, 2018 08:19
[2018-10-28 08:23] LABS: BLOOD UREA NITROGEN 14 MG/DL (7-18); CALCIUM LEVEL 8.5 MG/DL (8.5-10.1); CARBON DIOXIDE LEVEL 21 MEQ/L (21-32); CHLORIDE LEVEL 108 MEQ/L (98-107); CREATININE FOR GFR 1.04 MG/DL (0.55-1.30); GLOMERULAR FILTRATION RATE > 60.0 (>60); GLUCOSE, FASTING 103 MG/DL (70-100); POTASSIUM SERUM 3.3 MEQ/L (3.5-5.1); SODIUM LEVEL 137 MEQ/L (136-145)
[2018-10-28] MEDS: PYRIDOXINE 50 MG TAB PO SCH ×3 (09:47→20:35)
[2018-10-28 12:53] LABS: BLOOD UREA NITROGEN 14 MG/DL (7-18); CALCIUM LEVEL 8.4 MG/DL (8.5-10.1); CARBON DIOXIDE LEVEL 20 MEQ/L (21-32); CHLORIDE LEVEL 108 MEQ/L (98-107); CREATININE FOR GFR 0.99 MG/DL (0.55-1.30); GLOMERULAR FILTRATION RATE > 60.0 (>60); GLUCOSE, FASTING 100 MG/DL (70-100); POTASSIUM SERUM 3.1 MEQ/L (3.5-5.1); SODIUM LEVEL 136 MEQ/L (136-145)
--- NOTE | 2018-10-28 16:21 | IPNPDOC ---
Text Note Date of Service The patient was seen on 10/28/18. NOTE Subjective: Patient has been tolerating her breakfast this morning. Denies any abdominal pain. No nausea or vomiting. No bleeding. Objective: Vitals: (see below) General: No acute distress, laying comfortably in bed. HEENT: Moist mucous membranes. Neck: No JVD or lymphadenopathy Cardiac: RRR, No murmurs Pulm: Clear to auscultation b/l. No wheezing, rhonchi Abd: NT/ND + BS Ext: No edema or cyanosis Labs (see below) Renal ultrasound on 10/26/18 IMPRESSION: 1. Cholelithiasis. 2. No hydronephrosis. Assessment/Plan 1. Hypokalemia/hypomagnesemia/acute renal failure- likely secondary to dehydration. Improving with IV fluids. Avoid NSAIDs. Potassium replacement. Renal ultrasound with no obstruction. Appreciate nephrology input. We'll closely monitor renal function/electrolytes. Continue to monitor on telemetry. We'll continue to replete potassium level. Discussed with Dr. Muñoz - plan to continue on potassium replacement until serum potassium is greater than 3.4, after which the patient will be transferred to labor and delivery. 2. Hyperemesis gravidarum- nausea and vomiting improved. Patient tolerating liquid diet. We'll advance as tolerated. 3. demise- discussed with Dr. Del Rio, who notes that the patient had demise on ultrasound. Dr. del rio plans on taking the patient's onto his service once her renal function and potassium levels improve, so that he may perform induction. DVT prophy: SCDs Have discussed all the patient's questions to her satisfaction. VS,Landone, I+O VS, Keenanbone, I+O Laboratory Tests 10/27/18 19:53 Calcium Level 8.9 10/27/18 23:55 Calcium Level 8.7 10/28/18 03:56 Calcium Level 8.3 L, Red Blood Count 2.91 L, Mean Corpuscular Volume 83.5, Mean Corpuscular Hemoglobin 29.6, Mean Corpuscular Hemoglobin Concent 35.4, Red Cell Distribution Width 12.6 10/28/18 07:50 Calcium Level 8.5 10/28/18 11:59 Calcium Level 8.4 L Vital Signs Date Time Temp Pulse Resp B/P (MAP) Pulse Ox O2 Delivery O2 Flow Rate FiO2 10/28/18 12:00 96.6 89 17 127/71 (89) 95 10/28/18 08:00 99.0 10/26/18 22:18 Room Air I&O- Last 24 Hours up to 6 AM 10/28/18 06:00 Intake Total 3945 ml Output Total 2175 ml Balance 1770 ml FRANCISCO YOUNG MD Oct 28, 2018 16:21
[2018-10-28] MEDS: KCL 10MEQ/100ML SWI (KRUN) 10 MEQ in APPROPRIATE DILUENT 1 EA IV SCH ×3 (16:28→23:02)
[2018-10-28] MEDS ORDERED: LIDOCAINE 1% MDV 20ML VIAL SC ONE (17:45)
[2018-10-28 20:10] LABS: HEMATOCRIT 24.6 % (36.0-47.0); HEMOGLOBIN 8.6 g/dl (12.0-15.5); MEAN CORPUSCULAR HEMOGLOBIN 29.7 pg (27.0-33.0); MEAN CORPUSCULAR VOLUME 84.8 fl (80.0-96.0); PLATELET COUNT, AUTOMATED 189 10^3/uL (150-450); WHITE BLOOD COUNT 5.9 10^3/uL (4.0-10.0)
[2018-10-28 20:36] LABS: BLOOD UREA NITROGEN 10 MG/DL (7-18); CALCIUM LEVEL 8.5 MG/DL (8.5-10.1); CARBON DIOXIDE LEVEL 23 MEQ/L (21-32); CHLORIDE LEVEL 108 MEQ/L (98-107); CREATININE FOR GFR 0.96 MG/DL (0.55-1.30); GLOMERULAR FILTRATION RATE > 60.0 (>60); GLUCOSE, FASTING 91 MG/DL (70-100); POTASSIUM SERUM 2.9 MEQ/L (3.5-5.1); SODIUM LEVEL 137 MEQ/L (136-145)
[2018-10-28] MEDS ORDERED: ACETAMINOPHEN TAB 650MG DOSE (2X325MG) PO PRN (21:30)
[2018-10-28] MEDS ORDERED: KCL 10MEQ/100ML SWI (KRUN) 10 MEQ in APPROPRIATE DILUENT 1 EA IV SCH (22:00)
[2018-10-28] MEDS ORDERED: diphenhydrAMINE 25 MG CAP PO PRN (23:45)
[2018-10-29 00:30] LABS: BLOOD UREA NITROGEN 9 MG/DL (7-18); CALCIUM LEVEL 8.3 MG/DL (8.5-10.1); CARBON DIOXIDE LEVEL 21 MEQ/L (21-32); CHLORIDE LEVEL 108 MEQ/L (98-107); CREATININE FOR GFR 0.95 MG/DL (0.55-1.30); FREE T4 1.11 NG/DL (0.76-1.46); GLOMERULAR FILTRATION RATE > 60.0 (>60); GLUCOSE, FASTING 100 MG/DL (70-100); MAGNESIUM LEVEL 1.2 MG/DL (1.8-2.4); POTASSIUM SERUM 3.1 MEQ/L (3.5-5.1); SODIUM LEVEL 138 MEQ/L (136-145); THYROID STIMULATING HORMONE 0.482 uIU/ML (0.358-3.740)
[2018-10-29] MEDS ORDERED: CHLORASEPTIC SPRAY MT PRN (00:45)
[2018-10-29] MEDS ORDERED: POTASSIUM CHLORIDE 10 MEQ SR TABLET PO ONE ×3 (00:45→17:00)
[2018-10-29 04:00] VITALS: BP 126/68
[2018-10-29 04:54] LABS: BLOOD UREA NITROGEN 9 MG/DL (7-18); CALCIUM LEVEL 8.5 MG/DL (8.5-10.1); CARBON DIOXIDE LEVEL 22 MEQ/L (21-32); CHLORIDE LEVEL 108 MEQ/L (98-107); CREATININE FOR GFR 0.94 MG/DL (0.55-1.30); GLOMERULAR FILTRATION RATE > 60.0 (>60); GLUCOSE, FASTING 81 MG/DL (70-100); POTASSIUM SERUM 3.5 MEQ/L (3.5-5.1); SODIUM LEVEL 139 MEQ/L (136-145)
[2018-10-29] MEDS ORDERED: MAG SULF 1GM/100ML (MAG RUN) 1 GM in APPROPRIATE DILUENT 1 EA IV ONE (05:00)
[2018-10-29] MEDS: POTASSIUM CHLORIDE INJ 40 MEQ in NS 0.45% 1,000 ML IV SCH ×2 (06:22→08:50)
--- NOTE | 2018-10-29 07:58 | IPN ---
DATE OF SERVICE: 10/28/2018 SUBJECTIVE: Patient was seen and examined at the bedside today morning. She was sitting on the sofa actually. She is afebrile and hemodynamically stable. Her renal function continues to improve, however, she still does have hypokalemia which is very slowly improving at this point. The patient and her are now aware of demise. She is pending transfer to gynecology for induction of labor once her electrolytes get better. OBJECTIVE: Vital Signs: Temperature is 97.8 degrees Fahrenheit, blood pressure 141/77, pulse 92, respiratory rate 17, saturating 100% on room air. Intake and Output: Urine output recorded as 1 liter yesterday, 300 mL so far today since overnight. Weight on the bed scale is not available. PHYSICAL EXAMINATION: General: Patient is sleepy, otherwise she follows commands. Head and Neck Exam: Extraocular muscles intact. Pupils equally round and reactive to light. Mucous membranes are moist. Neck is supple. There is no jugular venous distention (JVD). Cardiovascular: S1 and S2, regular rate. No murmur, rub or gallop. Respiratory: Chest is clear to auscultation bilaterally. Bilateral equal air entry. No rales or rhonchi. Abdomen: Soft. Positive bowel sounds. Nontender. No organomegaly. Musculoskeletal: No clubbing or cyanosis. Pulses are 2+. Central Nervous System: No focal deficit. Power is 5/5 in all extremities. Psychiatric: Patient is in depressed mood. LAB REVIEW: CBC showed a WBC of 5.9, hemoglobin 8.6 and platelets of 189. BMP today morning showed sodium 136, potassium 3.1, chloride 108, bicarbonate 20, BUN 14, creatinine 0.99, calcium 8.4. CURRENT INPATIENT MEDICATIONS: The patient's medications were all reviewed by me. The patient is getting IV potassium runs. I am going to decrease her IV fluid rate to 60 mL/hr. No other change in the medications today as compared with yesterday. ASSESSMENT AND PLAN: 1. Acute renal failure. It is secondary to dehydration and volume depletion. The patient is continuously getting IV fluid hydration. Her renal function continues to improve. Creatinine is down to 0.9, which is coming close to her baseline. 2. Hypokalemia. Patient had severe hypokalemia with total body potassium depletion. She is going to need a lot of potassium. She is not stable to be transferred to gynecology until her serum potassium is more than 3.4. Continue the potassium containing IV fluids. However, I am decreasing the IV fluid rate and continuing BMP every 4 hours and aggressive potassium repletion. 3. Hyperemesis gravidarum. Continue vitamin B6, Reglan and Zofran as per gynecology. 4. Intrauterine demise. The patient is pending induction of labor by gynecology once the electrolytes get better. She is not cleared from nephrology at this point to be transferred to gynecology. 5. Proteinuria. I ordered all the autoimmune serology for the proteinuria, however, the repeat urinalysis done today morning showed no protein and no blood in the urine.
[2018-10-29 08:00] VITALS: BP 133/71
--- NOTE | 2018-10-29 08:22 | IPNPDOC ---
Text Note Date of Service The patient was seen on 10/29/18. NOTE Patient seen this AM. Ms. Ramachandran continues to feel better. She has been keeping down liquids for the last 24-48 hours. She denies any vaginal bleeding or cramping. Vitals - VSS, afebrile, normotensive, non tachycardic General - AAOX3, sitting up in bed, NAD Labs: latest Cr - 0.94 latest K - 3.5 Electrolytes have stabilized and kidney function continues to improve sign ificantly. She would be stable for IOL today. However, would recommend improved IV access for her induction; right now she only has a 22 gauge in her hand. Her H/H is low but remains stable, and she may require a transfusion post induction depending on bleeding. Bed spacing on L&D has been an issue, and logistically she may not be able to be brought over until later this afternoon. She and her request another bedside US before the induction to confirm the diagnosis of IUFD, which is reasonable and will be easy to do. Much appreciate medicine's assistance with Ms. Ramachandran. All patient and questions answered. Matt Weston DO VS,Lindy, I+O VS, Lindy, I+O Laboratory Tests 10/28/18 11:59 Calcium Level 8.4 L 10/28/18 20:02 Calcium Level 8.5, Red Blood Count 2.90 L, Mean Corpuscular Volume 84.8, Mean Corpuscular Hemoglobin 29.7, Mean Corpuscular Hemoglobin Concent 35.0, Red Cell Distribution Width 12.6 10/28/18 23:48 Calcium Level 8.3 L 10/29/18 04:05 Calcium Level 8.5 Vital Signs Date Time Temp Pulse Resp B/P (MAP) Pulse Ox O2 Delivery O2 Flow Rate FiO2 10/29/18 04:00 96.7 89 18 126/68 (87) 100 10/28/18 08:00 99.0 10/26/18 22:18 Room Air I&O- Last 24 Hours up to 6 AM 10/29/18 06:00 Intake Total 2710 ml Output Total 1200 ml Balance 1510 ml MATT WESTON DO Oct 29, 2018 08:22
[2018-10-29] MEDS: PYRIDOXINE 50 MG TAB PO SCH (08:38)
[2018-10-29 09:33] LABS: HEMATOCRIT 25.5 % (36.0-47.0); HEMOGLOBIN 8.8 g/dl (12.0-15.5); MEAN CORPUSCULAR HEMOGLOBIN 29.7 pg (27.0-33.0); MEAN CORPUSCULAR HGB CONC 34.5 g/dl (32.0-36.5); MEAN CORPUSCULAR VOLUME 86.1 fl (80.0-96.0); PLATELET COUNT, AUTOMATED 186 10^3/uL (150-450); RED BLOOD COUNT 2.96 10^6/uL (4.00-5.40)
[2018-10-29 09:44] LABS: BLOOD UREA NITROGEN 7 MG/DL (7-18); CALCIUM LEVEL 8.2 MG/DL (8.5-10.1); CARBON DIOXIDE LEVEL 21 MEQ/L (21-32); CHLORIDE LEVEL 108 MEQ/L (98-107); CREATININE FOR GFR 0.86 MG/DL (0.55-1.30); GLOMERULAR FILTRATION RATE > 60.0 (>60); GLUCOSE, FASTING 100 MG/DL (70-100); MAGNESIUM LEVEL 1.4 MG/DL (1.8-2.4); POTASSIUM SERUM 3.3 MEQ/L (3.5-5.1); SODIUM LEVEL 139 MEQ/L (136-145)
[2018-10-29] MEDS: MAG SULF 1GM/100ML (MAG RUN) 1 GM in APPROPRIATE DILUENT 1 EA IV SCH ×2 (10:33→11:34)
[2018-10-29 12:00] VITALS: BP 125/71
[2018-10-29] MEDS ORDERED: LIDOCAINE 1% MDV 20ML VIAL As Ordered ONE (12:28)
[2018-10-29 13:18] LABS: HEMOGLOBIN 9.1 g/dl (12.0-15.5); MEAN CORPUSCULAR HEMOGLOBIN 29.8 pg (27.0-33.0); MEAN CORPUSCULAR VOLUME 85.2 fl (80.0-96.0); PLATELET COUNT, AUTOMATED 199 10^3/uL (150-450); RED BLOOD COUNT 3.05 10^6/uL (4.00-5.40); WHITE BLOOD COUNT 4.9 10^3/uL (4.0-10.0)
[2018-10-29 13:33] LABS: TOTAL PROTEIN,RANDOM URINE 27.6 MG/DL (0.0-12.0)
--- NOTE | 2018-10-29 14:25 | IPNPDOC ---
Text Note Date of Service The patient was seen on 10/29/18. NOTE Subjective: Patient denies any nausea or vomiting this morning and is currently tolerating by mouth potassium. No abdominal pain. No acute changes overnight. No bleeding. Objective: Vitals: (see below) General: No acute distress, laying comfortably in bed. HEENT: Moist mucous membranes. Neck: No JVD or lymphadenopathy Cardiac: RRR, No murmurs Pulm: Clear to auscultation b/l. No wheezing, rhonchi Abd: NT/ND + BS Ext: No edema or cyanosis Labs (see below) Renal ultrasound on 10/26/18 IMPRESSION: 1. Cholelithiasis. 2. No hydronephrosis. Assessment/Plan 1. Hypokalemia/hypomagnesemia/acute renal failure- likely secondary to dehydration, FeNa<1. Improving with IV fluids. Avoid NSAIDs. Potassium replacement. Renal ultrasound with no obstruction. Appreciate nephrology input. We'll closely monitor renal function/electrolytes. Continue to monitor on telemetry. We'll continue to replete potassium level. Serum potassium improved. Renal function at baseline. 2. Hyperemesis gravidarum- nausea and vomiting improved. Patient tolerating liquid diet. We'll advance as tolerated. 3. demise- discussed with Dr. Del Rio, who notes that the patient had demise on ultrasound. 4. Chronic anemia- stable. No need for transfusion at this time. Continue to monitor. Will need close outpatient follow-up. DVT prophy: SCDs Have discussed all the patient's questions to her satisfaction. Patient is to follow-up with PCP in 1-2 weeks and return to the ED if symptoms worsen. Patient will need to follow-up with PCP for close monitoring of her potassium levels. Patient has been instructed to return to the emergency department if she starts to develop nausea and vomiting again after being discharged, so that further workup may take place, including the possible EGD. However at this time, the patient is tolerating diet, has no abdominal pain, no nausea or vomiting, her renal function is back to normal, and is overall feeling well. Patient will be transferred to OB service today under care of Dr. Sweeney. Please continue follow K levels, and replete as needed. We'll sign off. Please call with any questions. VS,Fishbone, I+O VS, Fishbone, I+O Laboratory Tests 10/28/18 20:02 Red Blood Count 2.90 L, Mean Corpuscular Volume 84.8, Mean Corpuscular Hemoglobin 29.7, Mean Corpuscular Hemoglobin Concent 35.0, Red Cell Distribution Width 12.6, Calcium Level 8.5 10/28/18 23:48 Calcium Level 8.3 L 10/29/18 04:05 Calcium Level 8.5 10/29/18 09:13 Red Blood Count 2.96 L, Mean Corpuscular Volume 86.1, Mean Corpuscular Hemoglobin 29.7, Mean Corpuscular Hemoglobin Concent 34.5, Red Cell Distribution Width 12.9, Calcium Level 8.2 L 10/29/18 13:08 Red Blood Count 3.05 L, Mean Corpuscular Volume 85.2, Mean Corpuscular Hemoglobin 29.8, Mean Corpuscular Hemoglobin Concent 35.0, Red Cell Distribution Width 12.7 Vital Signs Date Time Temp Pulse Resp B/P (MAP) Pulse Ox O2 Delivery O2 Flow Rate FiO2 10/29/18 12:00 97.9 100 18 125/71 (89) 100 10/28/18 08:00 99.0 10/26/18 22:18 Room Air I&O- Last 24 Hours up to 6 AM 10/29/18 06:00 Intake Total 2710 ml Output Total 1200 ml Balance 1510 ml FRANCISCO YOUNG MD Oct 29, 2018 14:25
[2018-10-29 15:21] LABS: BLOOD UREA NITROGEN 6 MG/DL (7-18); CALCIUM LEVEL 8.4 MG/DL (8.5-10.1); CARBON DIOXIDE LEVEL 21 MEQ/L (21-32); CHLORIDE LEVEL 107 MEQ/L (98-107); GLOMERULAR FILTRATION RATE > 60.0 (>60); GLUCOSE, FASTING 93 MG/DL (70-100); MAGNESIUM LEVEL 1.7 MG/DL (1.8-2.4); POTASSIUM SERUM 3.3 MEQ/L (3.5-5.1); SODIUM LEVEL 138 MEQ/L (136-145)
[2018-10-29 16:12] VITALS: BP 139/74
[2018-10-29 17:15] LABS: HEMATOCRIT 26.8 % (36.0-47.0); HEMOGLOBIN 9.1 g/dl (12.0-15.5); MEAN CORPUSCULAR HEMOGLOBIN 29.3 pg (27.0-33.0); MEAN CORPUSCULAR VOLUME 86.2 fl (80.0-96.0); PLATELET COUNT, AUTOMATED 205 10^3/uL (150-450); RED BLOOD COUNT 3.11 10^6/uL (4.00-5.40); WHITE BLOOD COUNT 5.2 10^3/uL (4.0-10.0)
[2018-10-29] MEDS ORDERED: miSOPROStol 200 MCG TAB (S0191) PO ONE (18:15)
--- NOTE | 2018-10-29 18:15 | NUR ---
1800 PATIENT TRANSFERRED TO L AND D FOR DEMISE AND ACUTE KIDNEY FAILURE PATIENT REQUESTED REPEAT US FOR VIABILITY AWAITING THE RESULT REVIEWED PLAN OF CARE
[2018-10-29] MEDS: LR 1,000 ML IV SCH (18:53)
[2018-10-29 18:57] VITALS: BP 130/71
[2018-10-29] MEDS ORDERED: hydrOXYzine 25 MG TAB PO ONE (19:00)
--- NOTE | 2018-10-29 19:07 | REPVR ---
EXAM: US First Trimester, Transabdominal EXAM DATE/TIME: 10/29/2018 5:52 PM CLINICAL HISTORY: 33 years old, female; Signs and symptoms; Lmp or gestational age (in weeks): 16w 0d; Antepartum complications; Other: Absent fhr; ; Additional info: For viability TECHNIQUE: Real-time transabdominal obstetrical ultrasound of the maternal pelvis and a first trimester , less than 14 weeks 0 days, with image documentation. COMPARISON: US OBS SINGEL GEST 10/27/2018 9:08 AM FINDINGS: GESTATION: Gestation: No motion was identified. Heart rate: No heart rate was documented. Presentation: Fetus in vertex position. Cephalic index is 0.73 Placenta: The placenta is fundal without evidence of previa or abruption. Amniotic fluid: The amniotic fluid appears within normal limits. BIOMETRY: Estimated gestational age: Gestational age by today's ultrasound is 5 weeks, 3 days (range of 13 weeks, 5 days to 17 weeks, 0 days) based on (HL, BPD, HC, AC, FL) average. Biometry: BPD 3.2 cm for an estimated gestational age of 16 weeks, 0 days. HC: 12.1 cm for an estimated gestational age of 16 weeks, 0 days. AC: 10.1 cm for an estimated gestational age of 16 weeks, 0 days. FL: 1.6 cm for an estimated gestational age of 14 weeks, 5 days. HL: 1.4 cm for an estimated gestational age of 13 weeks, 6 days. Estimated weight: Estimated weight 126 g. Ratios: HC/AC ratio is 1.2 MATERNAL: Uterus: Unremarkable. Cervix: Cervical length 3.2 cm. Right adnexa: Unremarkable. Left adnexa: Unremarkable. Intraperitoneal: ascites is present. IMPRESSION: No motion or cardiac activity is identified. The findings are consistent with intrauterine demise. Electronically signed by: Satish Pinzon On 10/29/2018 19:07:03 PM
[2018-10-29] MEDS ORDERED: FENTANYL 2MCG/ML ROPIVACAINE 0.2% IN 0.9% NACL 100ML IVBAG As Ordered ONE (20:10)
[2018-10-29] MEDS ORDERED: EPIDURAL COMMENT XX SCH (21:00)
[2018-10-29] MEDS ORDERED: ONDANSETRON 4MG/2ML VIAL (J2405) IV PRN (21:00)
[2018-10-29] MEDS ORDERED: ePHEDrine SULFATE 25 MG/5 ML(5MG/ML) SYRINGE IV PRN (21:00)
[2018-10-29] MEDS ORDERED: REFRIGERATOR IV KEYS XX PRN (21:00)
[2018-10-29] MEDS ORDERED: NALOXONE INJ 0.4 MG/1 ML VIAL (J2310) IV PRN (21:00)
[2018-10-29] MEDS: FENTANYL/ROPIVACAINE/NACL BAG 100 ML EPIDURAL SCH (21:00)
[2018-10-29] MEDS ORDERED: LACTATED RINGER'S 1000 ML IV PRN (21:00)
[2018-10-29] MEDS ORDERED: diphenhydrAMINE INJ 50MG/ML VIAL (J1200) IV PRN (21:00)
[2018-10-29] MEDS ORDERED: EPIDURAL/PCA KEYS XX PRN (21:00)
[2018-10-30] VITALS (28 sets, daily range): BP systolic 103–145; BP diastolic 53–85
[2018-10-30] MEDS ORDERED: miSOPROStol 200 MCG TAB (S0191) PO ONE (00:15)
[2018-10-30] MEDS: FENTANYL/ROPIVACAINE/NACL BAG 100 ML EPIDURAL SCH (02:34)
--- NOTE | 2018-10-30 04:24 | NUR ---
0355 am after 800 mg Cytotec had srom clear liquor sb at 16 weeks intact , awaiting placenta. 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 Digits appear complete on all limbs Facial structures appear complete Fetus appears male
[2018-10-30] MEDS ORDERED: OXYTOCIN 30 UNITS IN 0.9% NaCl 500ML IV BAG (J2590) As Ordered ONE ×2 (04:38→04:44)
[2018-10-30] MEDS: LR 1,000 ML IV SCH (05:24)
[2018-10-30] MEDS ORDERED: OXYTOCIN DRIP 30 UNITS in APPROPRIATE DILUENT 1 EA IV SCH (05:45)
[2018-10-30 06:53] LABS: HEMATOCRIT 22.1 % (36.0-47.0); HEMOGLOBIN 7.6 g/dl (12.0-15.5); MEAN CORPUSCULAR HEMOGLOBIN 29.6 pg (27.0-33.0); MEAN CORPUSCULAR HGB CONC 34.4 g/dl (32.0-36.5); PLATELET COUNT, AUTOMATED 175 10^3/uL (150-450); RED BLOOD COUNT 2.57 10^6/uL (4.00-5.40); WHITE BLOOD COUNT 7.2 10^3/uL (4.0-10.0)
[2018-10-30 07:16] LABS: ALBUMIN 2.2 GM/DL (3.2-5.2); ALT/SGPT 18 U/L (12-78); BILIRUBIN,TOTAL 0.2 MG/DL (0.2-1.0); BLOOD UREA NITROGEN 5 MG/DL (7-18); CALCIUM LEVEL 7.8 MG/DL (8.5-10.1); CARBON DIOXIDE LEVEL 21 MEQ/L (21-32); CHLORIDE LEVEL 107 MEQ/L (98-107); CREATININE FOR GFR 0.63 MG/DL (0.55-1.30); GLOMERULAR FILTRATION RATE > 60.0 (>60); GLUCOSE, FASTING 100 MG/DL (70-100); POTASSIUM SERUM 3.2 MEQ/L (3.5-5.1); SODIUM LEVEL 137 MEQ/L (136-145); TOTAL PROTEIN 4.9 GM/DL (6.4-8.2)
[2018-10-30] MEDS ORDERED: IBUPROFEN 600 MG TAB PO ONE (10:30)
--- NOTE | 2018-10-30 14:48 | IPN ---
DATE: 10/29/2018 SUBJECTIVE: The patient was seen and examined at the bedside this morning. The patient is awake and alert. Her renal function is significantly better. Hypokalemia is also improving. Potassium is up to 3.3 according to latest laboratories. Her reports that she is now able to tolerate liquids. Her nausea is getting better. OBJECTIVE: VITAL SIGNS: Temperature is 97.6 degrees Fahrenheit. Blood pressure is 133/71, pulse is 98, respiratory rate of 18, saturating 100% on room air. Intake and output: Urine output recorded since overnight is 750 mL. PHYSICAL EXAMINATION: GENERAL: The patient is awake, alert, oriented times three. Lying in bed getting IV fluids. HEAD AND NECK EXAM: Extraocular muscles are intact. Pupils are equal, round and reactive to light. Mucous membranes are moist. NECK: Supple. There is no jugular venous distention (JVD). CARDIOVASCULAR: S1, S2 regular rate. No murmur, rub or gallop. RESPIRATORY: Chest is clear to auscultation bilaterally. Bilateral equal air entry. No rales or rhonchi. ABDOMEN: Soft. Positive bowel sounds. Nontender. No organomegaly. MUSCULOSKELETAL: No clubbing or cyanosis. Pulses are 2+. CENTRAL NERVOUS SYSTEM (PRODUCE WEIGHER): No focal deficits. Power is 5/5 in all extremities. PSYCHIATRIC: The patient has a depressed mood. LABORATORY REVIEW: CBC showed a WBC of 5.2, hemoglobin 9.1, platelets are 205. BMP showed sodium 138, potassium 3.3, chloride 107, bicarbonate 21, BUN 6, creatinine is 0.9, calcium 8.4, magnesium 1.7. CURRENT INPATIENT MEDICATIONS: The patient's medications were all reviewed by me. She continues to be on IV potassium fluids. She was given a dose of magnesium sulfate 1 gram IV times one dose this morning. She was also given two doses of potassium chloride 40 mEq by mouth. ASSESSMENT AND PLAN: 1. Acute renal failure, it was secondary to volume depletion and dehydration. Renal function is significantly better. Creatinine is down to 0.9 today. 2. Hypokalemia. Hypokalemia is improving. Potassium has been fluctuating around 3.3 now. She was given another dose of oral potassium. Continue gentle potassium containing IV fluids. 3. Hyperemesis gravidarum. Management is as per obstetrics. She is on Zofran, Reglan and vitamin B6. 4. Intrauterine demise. The patient is optimized and cleared from nephrology to be transferred to gynecology for labor induction; however, if the patient gets IV fluids then IV fluids should contain potassium. Nephrology service is going to sign off at this time. Please call nephrology service for any help in the management of this patient during this hospitalization.
--- NOTE | 2018-10-30 15:56 | IPN ---
DATE: 10/29/2018 This lady is a 33-year-old 1, para 0, last menstrual period 07/08/2018, estimated date of confinement (EDC) by early ultrasound September 06, 2018 at 8 weeks 0 days' is April 14, 2019. Today she is 16 weeks of gestation. She was seen in the emergency room for nausea, vomiting. She had been seen twice before, once on September 21, 2018 and October 07, 2018 and at both of those times she was given IV fluids and anti nausea medication and sent away. She had no blood work done on September 21, 2018, but on October 07, 2018 her creatinine was 0.81, her GFR was greater than 60. At the visit, she came presently. She came with extreme nausea, vomiting, tachycardia, lightheadedness and lethargy. She was admitted to medicine with a history of dehydration and possible kidney injury with a low potassium and a creatinine of 3.66. Her past medical history is that she has polycystic ovarian syndrome and hyperemesis. Her past surgical history is that she has had a corneal transplant and she has had breast reduction. Her lab values at her visit indicated that she was A+, HIV negative, hepatitis negative, RPR negative, rubella immune. Varicella immune. Urine was negative. Gonorrhea and chlamydia were negative. CF was declined. She declined quad screen. Her plan of management on admission to medicine was to address hypovolemia, emesis, rule out kidney disease. Nephrology consult. Her labs on admission showed an anion gap of 17 and creatinine 3.66, GFR of 18.5. Radiology evaluations of her kidneys were normal and ultrasound, which was done the next morning showed an nonviable fetus at 16 weeks, breech presentation. No evidence of subchorionic hemorrhage. The cervix was 3.8 cm. No placental disease. The estimated weight was 143 grams. She has been progressively getting better in regard to her kidney issue. Her GFR is coming back to normal and her creatinine is coming down to normal and her anion gap is normalizing. Her hemoglobin is 9.1, hematocrit 26.0, platelets are 199 and her white count is 4.9. GFR was 60. Her creatinine was 0.86, anion gap was 10, potassium was low of 3.3. We had a discussion with both her regarding the plan of moving forward. We were going to induce her with Cytotec, which is an oral medication that we give graduating the dose until she gets contractions. We explored pain management issues in that she could have an epidural if her platelets are normal and hematology was within normal limits. We also discussed the fact of IV line access. Unfortunately, she has had 7-10 picks and fully does not want to have another pick; however, after discussion with anesthesia and doing local anesthetic to the site an IV line will be placed, to which she agrees. The IV line that she has now, which is just a very small access is not appropriate for blood if required or IV Pitocin. We discussed the need possibly for intervention operatively if the fetus delivers but the placenta fails to deliver after an appropriate interval of time that she may require a suction D and C; however, that decision will be made after an appropriate interval of time waiting for the placenta or if there is increased bleeding to the point where blood transfusion may be necessary. Both and expressed understanding of the plan of care. We spent well over an hour with both of them with the nurse in the room to explain this plan of care. Her blood work at 1300 hours showed that she had a protein creatinine ratio 0.15, which was normal. Her hemoglobin was 9.1, hematocrit 26.0 and platelets were 199. Her WBC was 4.9, temperature is 97.9, pulse of 100, respirations are 18 and her blood pressure is 125/71. We are just awaiting a bed in maternity and the patient will be transferred to care from medicine to obstetrics. All questions were answered, and we await transfer of care.
--- NOTE | 2018-10-30 16:13 | NUR ---
review progress 1600 hrs stable no bleeding scant vag discharge no cramps had 2 units packed cells uneventful shower mobilize eating no n and v reviewed us no rpoc awaiting post transfusion h/h
[2018-10-30 16:23] LABS: HEMATOCRIT 30.1 % (36.0-47.0); HEMOGLOBIN 10.4 g/dl (12.0-15.5); MEAN CORPUSCULAR HEMOGLOBIN 28.2 pg (27.0-33.0); MEAN CORPUSCULAR HGB CONC 34.6 g/dl (32.0-36.5); MEAN CORPUSCULAR VOLUME 81.6 fl (80.0-96.0); PLATELET COUNT, AUTOMATED 186 10^3/uL (150-450); RED BLOOD COUNT 3.69 10^6/uL (4.00-5.40); WHITE BLOOD COUNT 10.5 10^3/uL (4.0-10.0)
[2018-10-31] MEDS ORDERED: hydrOXYzine 25 MG TAB PO ONE (01:30)
[2018-10-31 07:15] VITALS: BP 132/84
--- NOTE | 2018-10-31 09:09 | REP ---
PELVIC ULTRASOUND: Real-time sonographic evaluation of pelvis is performed utilizing transabdominal technique. Urinary bladder is collapsed. Uterus is enlarged 13.3 x 7.3 x 8.0 cm. Endometrium is thickened and heterogeneous in echotexture without evidence of endometrial fluid collection. Maximum AP diameter is 32 mm. Ovaries are normal in size and echotexture, right ovary measuring 3.8 x 1.8 x 2.9 cm, and left ovary 3.4 x 2.6 x 1.8 cm. There is no adnexal mass or free fluid. Blood flow is seen in each ovary with duplex Doppler evaluation. IMPRESSION: Thickened heterogeneous endometrium 32 mm. Electronically Signed by Kirit Chin MD 10/31/2018 10:36 P
[2018-10-31 09:18] VITALS: BP 118/65
--- NOTE | 2018-10-31 16:26 | IPN ---
DATE: 10/30/2018 This lady had a spontaneous at 16 weeks in which the fetus was 66 grams and had spontaneously delivered. The placenta had been retained for over an hour and a half and after appropriate interval of waiting a speculum was placed in the vagina. The os was opened, suction of blood, approximately 150 mL, and with ring forceps were able to remove the placenta intact and sent off to pathology under separate cover. We did do a gentle evacuation with ring forceps, found some minimal trailing such as membranes. The cord was definitely complete and the uterus did contract well down under Pitocin. Our anticipation is that it is complete. However, an ultrasound will be performed later today and comprehensive metabolic profile as well as CBC will be done. The patient is not experiencing any excessive bleeding. Cervix appears to be closing down and the uterus is appropriately involuting.
--- NOTE | 2018-10-31 16:38 | IPN ---
DATE: 10/30/2018 This lady has finally a spontaneous delivery of of an at 66 grams and eventually delivered the placenta with cord apparently complete. We did a digital and a ring forceps evaluation of the uterus and we did not find any active pieces of placenta or tissue remaining. We did get an ultrasound which was inconclusive as far as actual placental tissue. There is endometrial thickening which would be normal at this stage but no evidence of any active gross placenta. Clinically the patient is stable. She has a well contracted uterus and she is not bleeding vaginally. The other issue is that her hemoglobin is now 7.6, hematocrit 22.1, platelets are 175 and she is symptomatic in regards to dizziness and hypotension. Her vital signs at the present time are 127/58, respirations are 16, pulse is 95. She is afebrile at 97.8. So we had a discussion regarding the risks and benefits of waiting regarding doing a dilation and curettage (D and C) if needed. At the present time she is clinically stable and has gone through significant trauma for this delivery and therefore the fact that she is not bleeding would tend to be conservative and we expressed to her what to look for in case there is excessive bleeding and she and her agree with that plan. The other issue was blood transfusion and we discussed the risks of blood transfusion including hepatitis B, hepatitis C, HIV and transfusion reactions were reviewed. The patient feels that it is appropriate for her to have a blood transfusion because she is symptomatic and we have organized for 2 units of blood and we will evaluate her hemoglobin/hematocrit status post transfusion. Safe to proceed.
--- NOTE | 2018-11-01 15:07 | DSES ---
DATE OF ADMISSION: 10/26/2018 DATE OF DISCHARGE: 10/31/2018 This lady is a 33-year-old 1, para 0, last menstrual period 07/08/2018, estimated date of confinement (EDC) by early ultrasound of September 06, 2018 was 8 weeks 0 days' putting her at April 14, 2019. She was seen through emergency because of extreme nausea, vomiting, lethargy, dehydration. She had been seen twice before in the hospital for nausea, vomiting, hyperemesis gravidarum. On routine blood work, they found that her creatinine was 3.66 and the diagnosis was possible kidney injury secondary to low potassium and severe dehydration from hyperemesis. PAST HISTORY: She has PCOS syndrome. PAST SURGICAL HISTORY: Corneal transplant and breast reduction. She was admitted through medicine and her emergency room workup included a renal ultrasound, which was normal. Eventually, a ultrasound showed a 16-week fetus, breech presentation with no heart and no evidence of subchorionic hemorrhage. No placental disease. Approximate weight was 143 grams. There was some edema occurring. Her GFR and her creatinine progressively came down and were better. Her anion gap was normalized. She was then transferred from medicine to the unit and we did extensively enrollment counselor regarding induction for the missed . We explained Cytotec. We explained pain management, the possibility that she may require D and C if she has retained products of conception. She eventually delivered a stillborn infant of 66 grams. The placenta eventually delivered with manual exploration and there was no evidence of retained products of conception. She had ultrasound, which confirmed that the uterus was empty. There was some endometrial thickening but no retained active products. She did have a significant hemoglobin drop, initially was 9.1 with a hematocrit of 26. She came down to 7.6 with a hematocrit of 22.1, platelets were 175 and she was symptomatic. She received 2 units of packed cells, followed up by repeat CBC where her hemoglobin was 10.4, hematocrit 30.1 and platelets were 186. She was kept overnight because of the patient's acute anxiety over the situation and in the morning she was discharges. She was stabilized. Her vital signs on discharge was blood pressure 109/61, respirations 18, pulse 92, afebrile at 98.3. She continued to have consult with nephrology, and she has a followup with [facility], Dr. Sweeney, in two weeks' time. She also had an SAMUEL, atypical ANCA antibodies, pANCA antibodies, double-stranded DNA antibodies, GFR base membrane IgG, glomerular base membrane IgG, RIFA, anticardiolipin IgG antibodies, complement 3 and complement 4. Her complement 3 and the complement 4 are back with 134 of complement C3 and 22 for complement C4, both are within normal range. In summary, we have an at 16 weeks with severe dehydration and kidney injury, resolved.
== END 2018-10-31 09:00 | disposition home or self-care (01) | DRG 818 ==
LOC: M ED 13:43 → M ED INP 19:26 → M PCU 10-27 00:16 → M LDI 10-29 14:51
PROVIDERS: ADMIT Internal Medicine; ATTEND Obstetrics & Gynecology
PROC: 10D17Z9 Manual Extraction of Products of Conception, Retained, Via Natural or Artificial Opening (ICD-10-PCS; principal; 2018-10-30)
PROC: 3E0P7GC Introduction of Other Therapeutic Substance into Female Reproductive, Via Natural or Artificial Opening (ICD-10-PCS; 2018-10-30)
DX: O21.1 Hyperemesis gravidarum with metabolic disturbance (principal); N17.9 Acute kidney failure, unspecified; O02.1 Missed abortion; Z3A.15 15 weeks gestation of pregnancy

== ENCOUNTER 2018-11-02 23:06 | Inpatient (IN) | payer OTHER ==
[~2018-11-02] VITALS: Ht 154.9 cm; Wt 85.0 kg
[~2018-11-02 23:06] MED LIST changes: +METO10TA2 PO; +ONDA4TAB5 PO; +PROM25SU; +PROM25SU PR
[2018-11-02] MEDS ORDERED: TYLE325T5 PO (23:20)
[2018-11-02] MEDS ORDERED: IBUP-1114 PO (23:20)
[2018-11-03] MEDS ORDERED: NS 1,000 ML IV ONE (00:30)
[2018-11-03] MEDS ORDERED: MORPHINE 4 MG/ML 1ML VIAL/SYRINGE (J2270) IV ONE (00:30)
[2018-11-03 01:18] LABS: BASO % 0.3 % (0.0-1.0); EOS # 0.2 10^3/uL (0.0-0.50); HEMATOCRIT 28.8 % (36.0-47.0); MEAN CORPUSCULAR HEMOGLOBIN 28.7 pg (27.0-33.0); MEAN CORPUSCULAR HGB CONC 34.7 g/dl (32.0-36.5); MEAN CORPUSCULAR VOLUME 82.8 fl (80.0-96.0); MONO # 1.1 10^3/uL (0.0-0.8); MONO % 7.9 % (0.0-5.0); NEUTROPHILS # 10.9 10^3/uL (1.8-7.7); NEUTROPHILS % 76.3 % (36.0-66.0); PLATELET COUNT, AUTOMATED 256 10^3/uL (150-450); RED BLOOD COUNT 3.48 10^6/uL (4.00-5.40); WHITE BLOOD COUNT 14.3 10^3/uL (4.0-10.0)
[2018-11-03 01:41] LABS: ERYTHROCYTE SEDIMENTATION RATE 60 mm/hr (0-20)
[2018-11-03 02:00] LABS: BLOOD UREA NITROGEN 8 MG/DL (7-18); C REACTIVE PROTEIN QUANTITATIV 1.05 MG/DL (0.00-0.30); CALCIUM LEVEL 8.3 MG/DL (8.5-10.1); CARBON DIOXIDE LEVEL 24 MEQ/L (21-32); CHLORIDE LEVEL 106 MEQ/L (98-107); CREATININE FOR GFR 0.81 MG/DL (0.55-1.30); GLOMERULAR FILTRATION RATE > 60.0 (>60); GLUCOSE, FASTING 88 MG/DL (70-100); HCG, SERUM QUANTITATIVE 956 MIU/ML; POTASSIUM SERUM 3.3 MEQ/L (3.5-5.1); SODIUM LEVEL 141 MEQ/L (136-145)
--- NOTE | 2018-11-03 02:24 | REPVR ---
EXAM: US Pelvis Complete, Transabdominal EXAM DATE/TIME: 11/03/2018 1:23 AM CLINICAL HISTORY: 33 years old, female; Pain; Pelvic pain; Additional info: demise, ? retained products TECHNIQUE: Real-time transabdominal pelvic ultrasound with image documentation. Complete exam. COMPARISON: Pelvis, limited US 10/30/2018 9:15 AM FINDINGS: Uterus/cervix: Anteverted uterus measuring 13.4 x 6.5 x 7.6 cm. Thickened heterogeneous endometrium in the fundus measuring 13.4 mm. Inferiorly in the lower endometrium endocervical canal is enlarged and heterogeneous measuring 5.4 cm with increased vascularity likely representing retained products of conception. Right adnexa: Right ovary is unremarkable measuring 2.6 x 1.6 x 2.2 cm. Left adnexa: Left ovary is unremarkable measuring 2.8 x 2.0 x 2.4 cm. Free fluid: None. IMPRESSION: Thickened heterogeneous endometrium in the fundus measuring 13.4 mm. low endometrial canal endocervical canal is enlarged and heterogeneous measuring 5.4 cm with increased vascularity likely representing retained products of conception. Electronically signed by: Maryana Monroy On 11/03/2018 02:24:08 AM
[2018-11-03 03:09] LABS: APPEARANCE, URINE HAZY (CLEAR); BACTERIA, URINE AUTO NEGATIVE (NEGATIVE); BILIRUBIN, URINE AUTO NEGATIVE (NEGATIVE); BLOOD, URINE BLOOD 3+ (NEGATIVE); COLOR, URINE YELLOW (YELLOW); GLUCOSE, URINE (UA) AUTO NEGATIVE (NEGATIVE); KETONE, URINE AUTO TRACE mg/dL (NEGATIVE); LEUKOCYTE ESTERASE, URINE AUTO TRACE (NEGATIVE); MUCUS, URINE SMALL (NEGATIVE); NITRITE, URINE AUTO NEGATIVE (NEGATIVE); PROTEIN, URINE AUTO 1+ mg/dL (NEGATIVE); RBC, URINE AUTO TNTC /HPF (0-3); SPECIFIC GRAVITY URINE AUTO 1.017 (1.002-1.035); SQUAMOUS EPITHELIAL CELL UR AU 1 /HPF (0-6); UROBILINOGEN, URINE AUTO 0.2 mg/dL (0.0-2.0); WBC, URINE AUTO 8 /HPF (0-3)
[2018-11-03] MEDS ORDERED: LOTE0.5G OU (04:02)
[2018-11-03] MEDS ORDERED: IBUP80TA PO (04:02)
[2018-11-03] MEDS ORDERED: TYLE325T5 PO (04:02)
[2018-11-03] MEDS ORDERED: PROM25SU PR (04:02)
[2018-11-03] MEDS ORDERED: UNIS25TA3 PO (04:02)
[2018-11-03] MEDS ORDERED: ONDANSETRON 4 MG TAB (S0181) PO PRN (04:15)
[2018-11-03] MEDS ORDERED: PERCOCET 5MG/325MG TAB PO PRN ×2 (04:15)
--- NOTE | 2018-11-03 04:53 | IPNPDOC ---
Text Note Date of Service The patient was seen on 11/03/18. NOTE History and Physical Lesley is a 33yo [id number] s/p at 16wk after undergoing IOL for IUFD that occurred in the setting of hyperemesis and CRISS for which she was admitted from 10/26 to 10/31- she was only recently discharged 4 days ago. Delivery was only otherwise complicated by need for blood transfusion, 2u pRBCs afterwards. Delivery note documents complete delivery of placenta afterwards and a TVUS was even done which demonstrated thickened EMS of 32mm which is consistent with recent delivery. Lesley called me earlier this evening and described intense uterine cramping that had her writhing- she noted uterine cramping has increased since her discharge. She has been taking regular motrin/tylenol for this but it does not help. Her bleeding remains like a normal period. She notes feeling febrile yesterday evening but never took her temp. ROS: Denies nausea, vomiting, dysuria History: Obhx: , recent IUFD with as described in HPI, delivery was on 10/30 PMhx: PCOS, obesity (BMI 35.4) Surgeries: corneal transplant, breast reduction Social: no tobacco/ETOH/illicit drugs, and she is in the ER with and mother Allergies: PCN- hives Meds: tylenol/motrin prn Vitals: temp 98F, pulse 95, bp 160/84, O2 100% in RA General: WDWN, sitting up in bed looks slightly uncomfortable (reported to ER PA that dose of morphine took her pain from 10 to a 7) Abdomen: obese, no rebound/guarding, slight fundal tenderness Extremities: no edema of BLE Labs: Today's CBC: WBC 14.3 w/slight left shift, H/H 10/28.8, plt 256 and BMP: Na 141, K 3.3, Cl 106, HCO3 24, BUN 8, creat 0.81, gluc 88. CRP 1.05 (elevated) Discharge CBC: WBC 10.5, H/H 10.4/30.1 (from 7.6/22.1 prior to transfusion), plt 186 Radiology: TVUS 11/03: Thickened heterogeneous endometrium in the fundus measuring 13.4 mm. low endometrial canal endocervical canal is enlarged and heterogeneous measuring 5.4 cm with increased vascularity likely representing retained products of conception TVUS on 10/30: thickened endometrium 32mm Assessment: Lesley is a 33yo [id number] s/p at 16wk after undergoing IOL for IUFD that occurred in the setting of hyperemesis and CRISS for which she was admitted from 10/26 to 10/31, who presents overnight with intense uterine cramping with possible endometritis based on elevated WBC count and CRP with some fundal tenderness. No measured fever here. TVUS today likely represents blood clot within the uterus given normal TVUS directly after delivery on 10/30. She had an elevated bp in the ER, likely related to pain. Creatinine improved to 0.81. Plan: -Admit to pediatric unit -IV antibiotics: clindamycin 900mg IV Q8hr and gentamicin 5mg/kg q24hr -Methergine series 0.2mg PO q6hr for 24hr -Regular diet -vitals 4hr -saline lock IV if fully PO tolerant -motrin/percocet prn pain with morphine 2mg IV for severe pain -repeat CBC/CMP tomorrow am -encourage ambulation Dr. Liz Wheatley MD VS,Lindy, I+O VS, Lindy, I+O Laboratory Tests 11/03/18 01:09 Red Blood Count 3.48 L, Mean Corpuscular Volume 82.8, Mean Corpuscular Hemoglobin 28.7, Mean Corpuscular Hemoglobin Concent 34.7, Red Cell Distribution Width 15.9 H, Neutrophils (%) (Auto) 76.3 H, Lymphocytes (%) (Auto) 14.0 L, Monocytes (%) (Auto) 7.9 H, Eosinophils (%) (Auto) 1.0, Basophils (%) (Auto) 0.3, Neutrophils # (Auto) 10.9 H, Lymphocytes # (Auto) 2.0, Monocytes # (Auto) 1.1 H, Eosinophils # (Auto) 0.2, Basophils # (Auto) 0.0, Calcium Level 8.3 L Vital Signs Date Time Temp Pulse Resp B/P (MAP) Pulse Ox O2 Delivery O2 Flow Rate FiO2 11/03/18 01:14 20 11/02/18 23:07 98.0 95 100 Room Air Liz Wheatley MD Nov 03, 2018 04:53
[2018-11-03] MEDS: CLINDAMYCIN 900 MG in APPROPRIATE DILUENT 1 EA IV SCH ×3 (05:00→22:50)
[2018-11-03] MEDS ORDERED: METHYLERGONOVINE MALEATE 0.2 MG TAB PO SCH (05:00)
[2018-11-03] MEDS ORDERED: IBUPROFEN 800 MG TAB PO PRN (08:00)
[2018-11-03] MEDS: D5W IV SCH (08:09)
[2018-11-03] MEDS: GENTAMICIN IV SCH (08:09)
[2018-11-03] MEDS: DOCUSATE SODIUM 100 MG CAP PO SCH ×2 (08:14→20:32)
[2018-11-03] MEDS: miSOPROStol 50 MCG 1/2 TAB (S0191) PO SCH ×3 (13:37→22:45)
[2018-11-03] MEDS: METHYLERGONOVINE MALEATE 0.2 MG TAB PO SCH ×2 (13:40→20:32)
[2018-11-03] MEDS: ALPRAZolam 0.25 MG TAB PO PRN ×2 (14:07→22:45)
[2018-11-03] MEDS ORDERED: ALPRAZolam 0.25 MG TAB PO SCH (16:00)
[2018-11-03] MEDS: MORPHINE 4 MG/ML 1ML VIAL/SYRINGE (J2270) IV PRN ×3 (16:35→22:45)
[2018-11-03 18:00] VITALS: BP 125/65
[2018-11-03 22:00] VITALS: BP 145/75
[2018-11-04] MEDS: miSOPROStol 50 MCG 1/2 TAB (S0191) PO SCH ×2 (01:55→05:19)
[2018-11-04] MEDS: MORPHINE 4 MG/ML 1ML VIAL/SYRINGE (J2270) IV PRN ×2 (01:55→05:19)
[2018-11-04] MEDS: METHYLERGONOVINE MALEATE 0.2 MG TAB PO SCH (01:55)
[2018-11-04 02:00] VITALS: BP 140/72
[2018-11-04] MEDS: CLINDAMYCIN 900 MG in APPROPRIATE DILUENT 1 EA IV SCH ×2 (05:20→15:24)
[2018-11-04 06:00] VITALS: BP 124/75
[2018-11-04] MEDS: GENTAMICIN IV SCH (06:52)
[2018-11-04] MEDS: D5W IV SCH (06:52)
[2018-11-04 07:35] LABS: BASO % 0.3 % (0.0-1.0); EOS # 0.3 10^3/uL (0.0-0.50); EOS % 3.2 % (0.0-3.0); HEMOGLOBIN 9.4 g/dl (12.0-15.5); LYMPH % 44.9 % (24.0-44.0); MEAN CORPUSCULAR HEMOGLOBIN 28.6 pg (27.0-33.0); MEAN CORPUSCULAR HGB CONC 33.6 g/dl (32.0-36.5); MEAN CORPUSCULAR VOLUME 85.1 fl (80.0-96.0); MONO # 0.8 10^3/uL (0.0-0.8); MONO % 8.4 % (0.0-5.0); NEUTROPHILS # 3.8 10^3/uL (1.8-7.7); NEUTROPHILS % 42.9 % (36.0-66.0); PLATELET COUNT, AUTOMATED 243 10^3/uL (150-450); RED BLOOD COUNT 3.29 10^6/uL (4.00-5.40)
[2018-11-04 07:58] LABS: ALBUMIN 2.5 GM/DL (3.2-5.2); ALT/SGPT 17 U/L (12-78); BILIRUBIN,TOTAL 0.2 MG/DL (0.2-1.0); BLOOD UREA NITROGEN 7 MG/DL (7-18); CALCIUM LEVEL 7.5 MG/DL (8.5-10.1); CARBON DIOXIDE LEVEL 28 MEQ/L (21-32); CHLORIDE LEVEL 105 MEQ/L (98-107); CREATININE FOR GFR 0.72 MG/DL (0.55-1.30); GLOMERULAR FILTRATION RATE > 60.0 (>60); GLUCOSE, FASTING 86 MG/DL (70-100); SODIUM LEVEL 141 MEQ/L (136-145); TOTAL PROTEIN 5.4 GM/DL (6.4-8.2)
--- NOTE | 2018-11-04 08:00 | IPNPDOC ---
Text Note Date of Service The patient was seen on 11/04/18. NOTE Lesley is a 33yo s/p at 16wk after undergoing an IOL for IUFD that occurred in the setting of hyperemesis and CRISS for which she was admitted from 10/26 to 10/31. She was discharged from the hospital 5 days ago. She was readmitted in the quality compliance coordinator hours of [id number] for pelvic pain, fevers at home, bleeding, and concern for endometritis. She was started on IV gent and IV clinda, and continues to be written for it. A pelvic US was obtained on admission which revealed 5cm of heterogenous material within the lower uterine segment. There was little concern for retained POC as her delivery note documented complete passage of the fetus, placenta, and umbilical cord. She was started on methergine and cytotec to facilitate passage of what was believed to be blood in her lower uterine segment. She was been written for pain medication and anti anxiety medication as well. This morning Lesley reports feeling improved as compared to admission. She still has pain (and is still receiving IV morphine) but she feels a lot better. She is eating and drinking without issues. She endorses bleeding and passage of small clots from her vagina, but nothing heavy. She denies any fevers/chills, SOB, n/v, or dysuria. Vitals - VSS, afebrile for >24 hours, normotensive, non tachycardic General - AAOX3, sitting up in bed, NAD Abdomen - Minimal tenderness to palpation in lower pelvis. No rebound, guarding, or peritoneal signs Extremities - No edema Labs: CBC - 14.3>10.0/28.8<256 on admission ---> 9.0>9.4/28.0<243 this AM Lesley feels much better this morning, though she continues to require morphine for pain. Her bleeding has not been particularly heavy. Will repeat pelvic US this AM to re assess endometrial stripe and lower uterine segment. If a large amount of heterogenous material remains within the uterus despite the methergine and cytotec she has received, I would recommend proceeding with D+C. Will continue IV antibiotics for now and make NPO for this morning pending US results. All patient questions were answered. Report given to Dr. Sweeney, who will be managing her care today. Enzo Weston DO VS,Lindy, I+O VS, Lindy, I+O Laboratory Tests 11/04/18 07:24 Red Blood Count 3.29 L, Mean Corpuscular Volume 85.1, Mean Corpuscular Hemoglobin 28.6, Mean Corpuscular Hemoglobin Concent 33.6, Red Cell Distribution Width 16.2 H, Neutrophils (%) (Auto) 42.9, Lymphocytes (%) (Auto) 44.9 H, Monocytes (%) (Auto) 8.4 H, Eosinophils (%) (Auto) 3.2 H, Basophils (%) (Auto) 0.3, Neutrophils # (Auto) 3.8, Lymphocytes # (Auto) 4.0, Monocytes # (Auto) 0.8, Eosinophils # (Auto) 0.3, Basophils # (Auto) 0.0 Vital Signs Date Time Temp Pulse Resp B/P (MAP) Pulse Ox O2 Delivery O2 Flow Rate FiO2 11/04/18 06:00 96.5 82 16 124/75 (91) 100 11/03/18 17:33 Room Air I&O- Last 24 Hours up to 6 AM 11/04/18 06:00 Intake Total 360 ml Output Total 350 ml Balance 10 ml ENZO WESTON DO Nov 04, 2018 08:00
[2018-11-04] MEDS: DOCUSATE SODIUM 100 MG CAP PO SCH (08:10)
[2018-11-04] MEDS: ALPRAZolam 0.25 MG TAB PO PRN (08:10)
[2018-11-04 14:00] VITALS: BP 130/76
--- NOTE | 2018-11-04 14:10 | REP ---
PELVIC ULTRASOUND: Real-time sonographic evaluation of the pelvis was performed utilizing transabdominal technique. The uterus is somewhat enlarged 13.9 x 6.2 x 6.8 cm. The endometrial echo complex is diffusely thickened and heterogenous with areas of increased blood flow consistent with a retained products of conception. There is also likely blood clot in the lower uterine segments where there is thickening without increased flow. The ovaries could not be visualized. No definite adnexal mass or free fluid is seen. IMPRESSION: Significantly thickened, heterogenous endometrial echo complex with areas of increased flow predominately in the body and fundus of the uterus consistent with retained products of conception, with thickening in the lower uterine segment not demonstrating increased flow consistent with retained blood products at that location. Electronically Signed by Kirit Chin MD 11/04/2018 04:10 P
[2018-11-04] MEDS ORDERED: POTASSIUM CHLORIDE 10 MEQ SR TABLET PO ONE (15:00)
[2018-11-04] MEDS ORDERED: PROPOFOL 200 MG/20 ML VIAL As Ordered ONE (19:24)
[2018-11-04] MEDS ORDERED: MIDAZOLAM INJ 2 MG/2 ML VIAL (J2250) As Ordered ONE (19:24)
[2018-11-04] MEDS ORDERED: dexameTHASONE 4 MG/ML 1ML VIAL (J1100) As Ordered ONE (19:24)
[2018-11-04] MEDS ORDERED: fentaNYL 100 MCG/2 ML INJECTION (J3010) As Ordered ONE ×2 (19:24→20:39)
[2018-11-04] MEDS ORDERED: ONDANSETRON 4MG/2ML VIAL (J2405) As Ordered ONE (19:24)
[2018-11-04] MEDS ORDERED: LIDOCAINE 2% INJ 100 MG/5 ML SDV (FOR ANES.) As Ordered ONE (19:24)
[2018-11-04] MEDS ORDERED: KETOROLAC 60 MG/2 ML VIAL (J1885) As Ordered ONE (19:58)
[2018-11-04] MEDS ORDERED: miSOPROStol 200 MCG TAB (S0191) As Ordered ONE (20:08)
[2018-11-04] MEDS: fentaNYL 100 MCG/2 ML INJECTION (J3010) IV PRN ×4 (20:35→20:55)
[2018-11-04] MEDS ORDERED: MEPERIDINE INJ 25 MG/ML VIAL (J2175) IV PRN (21:00)
[2018-11-04] MEDS ORDERED: LR 1,000 ML IV SCH (21:00)
[2018-11-04] MEDS ORDERED: KETOROLAC 30 MG/ML VIAL (J1885) IV PRN (21:00)
[2018-11-04] MEDS ORDERED: METOCLOPRAMIDE INJ 10MG/2ML VIAL (J2765) IV PRN (21:00)
[2018-11-04] MEDS ORDERED: PERCOCET 5MG/325MG TAB PO PRN (21:00)
[2018-11-04] MEDS ORDERED: ONDANSETRON 4MG/2ML VIAL (J2405) IV PRN (21:00)
[2018-11-04] MEDS ORDERED: OXYTOCIN INJ 10 UNITS/ML VIAL (J2590) IV SCH (21:30)
[2018-11-04 21:50] VITALS: BP 123/72
[2018-11-04 22:26] VITALS: BP 126/63
[2018-11-04 23:10] VITALS: BP 118/64
[2018-11-05 00:27] VITALS: BP 123/66
[2018-11-05] MEDS ORDERED: ALPRAZolam 0.25 MG TAB PO PRN (00:50)
[2018-11-05 01:06] VITALS: BP 125/61
[2018-11-05] MEDS: CLINDAMYCIN 900 MG in APPROPRIATE DILUENT 1 EA IV SCH ×2 (01:54→06:52)
[2018-11-05 02:00] VITALS: BP 122/58
[2018-11-05 06:10] VITALS: BP 129/68
[2018-11-05] MEDS: GENTAMICIN IV SCH (06:16)
[2018-11-05] MEDS: D5W IV SCH (06:16)
--- NOTE | 2018-11-05 08:50 | IPN ---
DATE: 11/04/2018 This lady is a 33 old 1, para 0 who at 16 weeks and went on to have induction of labor for an IUFD occurred in the setting of hyperemesis and kidney injury which she was admitted for. She had been rehydrated kidney function came back to normal. She had a spontaneous delivery after Cytotec of the fetus and completed placenta. She required some blood transfusions because a low hemoglobin and being symptomatic. She had a transvaginal ultrasound after delivery of placenta and fetus and it showed a thickened endometrium at 32 mm which be consistent with a recent delivery. She was seen in emergency room because of cramping and pain that had increased since her discharge. She has been taking Tylenol which did not seem to help she did have a normal scant bleeding, nothing unusual she said she had a temperature on admission and in emergency she was afebrile. She was seen initially with temperature of 98 Fahrenheit, pulse is 95, blood pressure 160/84. She was walking back and forth being uncomfortable because of pain and she was given a dose of morphine. Her CBC indicate a white count of 14.3, hemoglobin 10, hematocrit 28.8, glucose was normal BUN, creatinine were within normal limits. She did have a low potassium. She had an initial ultrasound which again showed some heterogeneous endometrium and the endocervical canal something about 5.4 cm which represented either retained products or increasing clot. She was given Cytotec and Methergine to try and reduce that spontaneously and the working diagnosis was endometritis. She was started on antibiotics of clindamycin, gentamicin and she was also started on Cytotec. 24 hours later she still was having pain but she said she felt a bit better. She still was afebrile. She had no rebound, guarding and she had minimal tenderness as well as minimal discharge and was no foul lochia. The Cytotec was discontinued and she continue on her antibiotics. She had a repeat of her ultrasound and it showed that the uterus was enlarged endometrioma was complex diffuse thickening increased blood flow with a diagnosis retained products of conception. The blood clot in the lower uterine segment had not increased, but there was consistent flow in the retained blood products. Repeat of her lab work showed that her hemoglobin was 9.4 and hematocrit 28.0, platelets were normal at 243 but her white count is gone from 14.3 to 9.0. I review and discussion with the patient regarding ongoing plan of management effectively we recommended she have a D and C to evacuate the clot or and retained products of conception and Cytotec had no effect. After discussing risks and benefits of surgery including hemorrhage, infection, perforation, , reoperation. The patient expressed understanding, signed a witnessed consent form. She has been nothing by mouth. We are going to top off her potassium which has always been low, presently is 3.00 initially was 3.3 and we await the OR for suction curettage. All questions were answered. The patient would like to go home today, however were trying to convince her to stay overnight in least until tomorrow morning which we will repeat the CBC and potassium as well as get a gentamicin level. The patient understands this and is somewhat reluctant however, over course of time may consider staying.
--- NOTE | 2018-11-07 16:03 | DSES ---
DATE OF ADMISSION: 11/03/2018 DATE OF DISCHARGE: 11/05/2018 This lady is a 33-year-old 1, para 0 who had a spontaneous delivery of a stillborn at 16 weeks of gestation, 66 grams. She did undergo induction of labor for the intrauterine demise (IUFD). She delivered the placenta completely as well as the fetus and she returned to the emergency room because of feeling cramps and pain. She said she had a fever at home. However, here in the hospital, she never actually had a fever and she had some bleeding. She was started on IV gentamicin and clindamycin. She had a pelvic ultrasound which revealed heterogeneous material within the lower segment, concerning for retained products of conception, and she was started on Methergine and Cytotec. Throughout this time when reviewing her vital signs, she was afebrile throughout her entire stay. She was never tachycardiac and on evaluating of her hematology, initially her white count was 14.3 and it went down to 9.0. She had a repeat this morning as well as her gentamicin peak and trough. She was feeling much better. However, it still was concerning after having a second ultrasound which suggested retained products of conception. After discussing the risks and benefits with the patient, she had an appropriate suction to curettage of moderate amount of clots and debris within the uterine cavity. No evidence of actual placental tissue but it was quite adherent to the rebolledo of the uterus. She received Cytotec in the operating room (OR) in order to keep the uterus contracted as well as Pitocin. She had received her full course dose of gentamicin and clindamycin. Uterus was placed in the anatomical position. Overnight, she did well, minimal amount of bleeding and cramping. She will use ibuprofen at home for her cramps. She did have an anxiety episode here. However, this was resolved quite quickly. On discharge today, her blood pressure 129/68, respirations 18, pulse 76, temperature 97.3. We discussed phlebitis, cystitis, endometritis, cellulitis, diet, exercise, pain management, perineal and wound care. She has a planned visit with Dr. Sweeney in two weeks from today. She was counseled to monitor for fever. She has her medications to go home with and she will be immediately discharged after her peak gentamicin levels are taken. In summary, we have a patient with a previous history of intrauterine demise (IUFD), delivered with placenta complete, who came back for query endometritis, treated with antibiotics and antipyretics.
--- NOTE | 2018-11-28 12:16 | RO ---
DATE OF PROCEDURE: 11/04/2018 PREOPERATIVE DIAGNOSIS: Retained products of conception, rule out endometritis. POSTOPERATIVE DIAGNOSIS: Retained products of conception, rule out endometritis. OPERATION PROPOSED: Suction curettage. OPERATION PERFORMED: Suction curettage. SURGEON: Juan Antonio Sweeney MD CENTRAL SERVICE TECHNICIAN: ANESTHESIA: General. ESTIMATED BLOOD LOSS: 300-400 mL. DESCRIPTION OF OPERATION: After adequate time-out, prepped and draped in the lithotomy position, Grace catheter drained 300 mL of clear urine. Appropriate antibiotics on board and sequential in place. Weighted speculum in vagina. Single-tooth tenaculum on the anterior lip of the cervix. We noticed there were a lot of clots in the external os and the uterus sounded to depth of 13 cm. Was already dilated to a Laisha 12. Curved suction curette was applied. Moderate amount of tissue. Difficult extraction because it appeared to be embodied within the endometrium of the uterus more organize clots more than tissue. The uterus was replaced in anatomical position, well contracted under Pitocin. Patient was given Cytotec per rectum in order to ensure uterine contractility. Uterus was placed in anatomical position. Instruments were removed. Instrument and pad counts were correct, and the patient was sent to recovery in good condition.
== END 2018-11-05 10:30 | disposition home or self-care (01) | DRG 779 ==
LOC: M ED 23:06 → M ED INP 11-03 04:12 → M MS4PR 11-03 17:50
PROVIDERS: ADMIT Obstetrics & Gynecology; ATTEND Obstetrics & Gynecology
PROC: 10D17Z9 Manual Extraction of Products of Conception, Retained, Via Natural or Artificial Opening (ICD-10-PCS; principal; 2018-11-04 15:08)
DX: O03.5 Genital tract and pelvic infection following complete or unspecified spontaneous abortion (principal)

== ENCOUNTER → 2018-12-13 | Outpatient (REF) | payer OTHER ==
[~2018-12-13] MED LIST changes: +IBUP-1114 PO; +IBUP80TA PO; +LOTE0.5G OU; +TYLE325T5 PO; +UNIS25TA3 PO
[2018-12-13 19:00] LABS: PERCENT SATURATION 28.8 % (13.2-45.0)
== END ==
LOC: M LAB REF 17:42
PROVIDERS: ATTEND Internal Medicine Nephrology
DX: D64.9 Anemia, unspecified (principal)

== ENCOUNTER → 2019-07-17 | Outpatient (REF) | payer OTHER ==
[2019-07-17 17:56] LABS: PERCENT SATURATION 24.3 % (13.2-45.0)
== END ==
LOC: M LAB REF 16:53
PROVIDERS: ATTEND Internal Medicine Nephrology
DX: D50.9 Iron deficiency anemia, unspecified (principal)

== ENCOUNTER 2019-09-18 17:10 | Emergency (ER) | payer OTHER ==
[~2019-09-18] VITALS: Ht 162.6 cm; Wt 91.8 kg
[2019-09-18] MEDS ORDERED: METF500T13 PO (17:15)
[2019-09-18] MEDS ORDERED: POTA8CAP10 PO (17:17)
[2019-09-18] MEDS ORDERED: PREN200C PO (17:17)
[2019-09-18] MEDS ORDERED: FERR240T PO (17:17)
[2019-09-18] MEDS ORDERED: MAGN64TA3 PO (17:17)
[2019-09-18 18:20] LABS: BASO # 0.1 10^3/uL (0.0-0.2); BASO % 1.3 % (0.0-1.0); EOS # 0.2 10^3/uL (0.0-0.5); EOS % 2.5 % (0.0-3.0); HEMATOCRIT 34.8 % (36.0-47.0); HEMOGLOBIN 11.5 g/dl (12.0-15.5); LYMPH # 2.8 10^3/uL (1.5-5.0); LYMPH % 46.1 % (24.0-44.0); MEAN CORPUSCULAR HEMOGLOBIN 30.3 pg (27.0-33.0); MEAN CORPUSCULAR VOLUME 91.6 fl (80.0-96.0); MONO # 0.5 10^3/uL (0.0-0.8); MONO % 8.7 % (0.0-5.0); NEUTROPHILS # 2.5 10^3/uL (1.5-8.5); NEUTROPHILS % 41.4 % (36.0-66.0); PLATELET COUNT, AUTOMATED 297 10^3/uL (150-450); WHITE BLOOD COUNT 6.1 10^3/uL (4.0-10.0)
[2019-09-18 18:38] LABS: BLOOD UREA NITROGEN 8 MG/DL (7-18); CARBON DIOXIDE LEVEL 24 MEQ/L (21-32); CHLORIDE LEVEL 107 MEQ/L (98-107); CREATININE FOR GFR 0.82 MG/DL (0.55-1.30); GLOMERULAR FILTRATION RATE > 60.0 (>60); GLUCOSE, FASTING 81 MG/DL (70-100); POTASSIUM SERUM 3.9 MEQ/L (3.5-5.1); SODIUM LEVEL 140 MEQ/L (136-145)
--- NOTE | 2019-09-18 20:54 | REPVR ---
PROCEDURE INFORMATION: Exam: US First Trimester, Transabdominal Exam date and time: 09/18/2019 8:21 PM Age: 34 years old Clinical indication: Lmp or gestational age (in weeks): ? ? 4 weeks? ; Antepartum complications; Bleeding; ; Additional info: Vag bleeding, + preg TECHNIQUE: Imaging protocol: Real-time transabdominal obstetrical ultrasound of the maternal pelvis and a first trimester , less than 14 weeks 0 days, with image documentation. COMPARISON: US PELVIC NON-OB COMPLETE 11/04/2018 9:53 AM FINDINGS: GESTATION: Gestation: No gestational sac, IUP or yolk sac demonstrated. No pole demonstrated. BIOMETRY: Estimated gestational age: Unknown MATERNAL: Uterus: Uterus measures 9 x 4.3 x 4.7 cm. Endometrial echo complex measures 6.3 mm. Cervix: Unremarkable. Right adnexa: Right ovary measures 3.2 x 2.6 x 2.4 cm. Normal flow. Left adnexa: Left ovary measures 3.7 x 2 x 3.1 cm. Hemorrhagic cyst or involuting follicle in the left ovary measures 1.2 x 1.1 x 1 cm. Intraperitoneal: No intraperitoneal free fluid. IMPRESSION: Empty uterus in a patient weakly positive. Findings may indicate very early IUP prior to visualization of a gestational sac or fetus. Correlation with serial beta-hCG levels and follow ultrasound recommended in order to exclude ectopic verses very early or early failure. Electronically signed by: Mikey Chapa On 09/18/2019 20:53:40 PM
[2019-09-18 21:45] VITALS: BP 149/73
== END 2019-09-18 21:46 | disposition home or self-care (01) ==
LOC: M ED 17:10
DX: O20.9 Hemorrhage in early pregnancy, unspecified (principal); Z3A.01 Less than 8 weeks gestation of pregnancy; E11.9 Type 2 diabetes mellitus without complications; E28.2 Polycystic ovarian syndrome; Z79.899 Other long term (current) drug therapy; Z79.84 Long term (current) use of oral hypoglycemic drugs; Z88.0 Allergy status to penicillin; O24.111 Pre-existing type 2 diabetes mellitus, in pregnancy, first trimester; O99.281 Endocrine, nutritional and metabolic diseases complicating pregnancy, first trimester

== ENCOUNTER → 2019-09-22 | Outpatient (CLI) | payer OTHER ==
[~2019-09-22] MED LIST changes: +FERR240T PO; +MAGN64TA3 PO; +METF500T13 PO; +POTA8CAP10 PO; +PREN200C PO
== END ==
LOC: M LAB 10:43
PROVIDERS: ATTEND Physician Assistant
DX: N93.9 Abnormal uterine and vaginal bleeding, unspecified (principal)

== ENCOUNTER 2019-10-02 11:23 | Emergency (ER) | payer OTHER ==
[~2019-10-02] VITALS: Ht 152.4 cm; Wt 93.4 kg
[~2019-10-02 11:23] MED LIST changes: +ONDA-83; +ONDA-83 PO; -ONDA4TAB5; -ONDA4TAB5 PO
[2019-10-02] MEDS ORDERED: POTA10CA32 PO (12:20)
[2019-10-02 13:04] LABS: BASO % 0.6 % (0.0-1.0); EOS # 0.2 10^3/uL (0.0-0.5); EOS % 3.5 % (0.0-3.0); HEMATOCRIT 38.7 % (36.0-47.0); HEMOGLOBIN 11.8 g/dl (12.0-15.5); LYMPH # 2.1 10^3/uL (1.5-5.0); LYMPH % 31.3 % (24.0-44.0); MEAN CORPUSCULAR HGB CONC 30.5 g/dl (32.0-36.5); MEAN CORPUSCULAR VOLUME 95.1 fl (80.0-96.0); MONO # 0.5 10^3/uL (0.0-0.8); MONO % 7.2 % (0.0-5.0); NEUTROPHILS # 3.9 10^3/uL (1.5-8.5); PLATELET COUNT, AUTOMATED 290 10^3/uL (150-450); RED BLOOD COUNT 4.07 10^6/uL (4.00-5.40); WHITE BLOOD COUNT 6.8 10^3/uL (4.0-10.0)
[2019-10-02 13:53] LABS: BLOOD UREA NITROGEN 7 MG/DL (7-18); CALCIUM LEVEL 9.1 MG/DL (8.5-10.1); CARBON DIOXIDE LEVEL 25 MEQ/L (21-32); CHLORIDE LEVEL 107 MEQ/L (98-107); CREATININE FOR GFR 0.84 MG/DL (0.55-1.30); GLOMERULAR FILTRATION RATE > 60.0 (>60); GLUCOSE, FASTING 76 MG/DL (70-100); HCG, SERUM QUANTITATIVE 3146 MIU/ML; POTASSIUM SERUM 4.2 MEQ/L (3.5-5.1); SODIUM LEVEL 140 MEQ/L (136-145)
[2019-10-02 16:07] LABS: CHLAMYDIA DNA AMPLIFICATION NEGATIVE (NEGATIVE); GC DNA AMPLIFICATION NEGATIVE (NEGATIVE)
[2019-10-02] MEDS ORDERED: PREN27TA3 PO (17:20)
[2019-10-02] MEDS ORDERED: LOTE0.5S OU (17:20)
[2019-10-02] MEDS ORDERED: PREDOPD OS (17:20)
[2019-10-02] MEDS ORDERED: LUBR1OIN OU (17:20)
--- NOTE | 2019-10-02 18:04 | REP ---
Emergency first trimester obstetric sonography: History: Vaginal bleeding in early evaluate for IUP. 6 weeks 2 days by LMP. Beta HCG level 3146. Findings: Transabdominal and transvaginal scanning are performed. Uterine dimensions are 10.2 x 4.6 x 5.5 cm. Endometrial echo is 1.0 cm in thickness. The uterus is empty. No intrauterine gestational sac is visible. Normal ovaries seen bilaterally. Right ovary measures 3.3 x 2.6 x 2.5 cm. Left ovary measures 3.8 x 2.1 x 3.2 cm. Adjacent to the left ovary is a 2.7 x 2.4 x 1.6 cm complex nodule containing a central anechoic zone and a yolk sac within this consistent with an ectopic gestation. No embryonic pole is seen. No free fluid is noted. Impression: Findings consistent with left adnexal ectopic without evidence of rupture. There is a yolk sac but no identifiable embryonic pole. The uterus is empty. Normal right adnexa. No free fluid. Electronically Signed by Raymond Ambriz MD 10/02/2019 06:58 P
[2019-10-02 18:30] LABS: ALBUMIN 3.7 GM/DL (3.2-5.2); ALT/SGPT 13 U/L (12-78); BILIRUBIN,DIRECT < 0.1 MG/DL (0.0-0.2); BILIRUBIN,TOTAL 0.4 MG/DL (0.2-1.0); TOTAL PROTEIN 7.4 GM/DL (6.4-8.2)
[2019-10-02] MEDS ORDERED: METHOTREXATE 50MG/2ML VIAL (J9260 PER 50MG) IM ONE (19:15)
[2019-10-02 21:14] VITALS: BP 130/63
--- NOTE | 2019-10-03 01:51 | CR.PDOC ---
General Date of Consultation: Oct 02, 2019 Consultation REASON FOR CONSULTATION/CHIEF COMPLAINT: ectopic HISTORY OF PRESENT ILLNESS: Lesley is a 34yo with LMP 2 Dec, giving gestational age of 6w1d, presenting to ER for vaginal spotting and pelvic cramping. She has been followed in the office with hcgs that initially were appropriately increasing. Plan was for her to follow-up in the office for dating ultrasound. However, her spotting/cramping worsened, and so she presented to ED. No lightheadedness/dizziness. 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 In Oct 2018, during that first , she was admitted for acute renal failure related to severe dehydration from hyperemesis and she experienced a demise at 15wk. She delivered the fetus and was discharged home, but days later was re-admitted for retained products and underwent D&C. This was highly desired. She was discovered to be on labs done just prior to planned diagnostic laparos copy/chromopertubation in the workup for infertility. ALLERGIES: Please see below. HOME MEDICATIONS: Please see below. PAST MEDICAL HISTORY: 1. 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 vit D deficiency 4. had acute renal failure with severe dehydration related to hyperemesis and 15wk loss in Oct 2018 5. 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 PCOS 7. Obesity (BMI 40) PAST SURGICAL HISTORY: 1. corneal transplants (L , R 2011) 2. breast reduction 2005 3. 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 GENERAL APPEARANCE: NAD, sitting up in bed, conversant but tearful ABDOMEN: soft, obese, NTTP Extremities: no edema of BLE LABORATORY DATA: Please see below. H/H 11.8/38.7, plt 290, WBC 6.8 creat 0.84 AST 19, ALT 13 hcg 3,146 A pos MBT Radiology: TVUS 10/02/2019 Impression: Findings consistent with left adnexal ectopic without evidence of rupture. There is a yolk sac but no identifiable embryonic pole. The uterus is empty. Normal right adnexa. No free fluid. ASSESSMENT: Lesley is a 34yo with LMP 2 Dec, giving gestational age of 6w1d, having newly diagnosed left adnexal ectopic . Ectopic is GS and YS with NO FP/FCA. Uterus is empty. No e/o rupture of ectopic. Vitals wnl, exam benign. Hemodynamically stable. H/H 11.8/38.7. No e/o blood dyscrasias, no e/o liver or renal disease, no pulmonary disease or peptic ulcer. She is reliable for follow- up. Patient is a good candidate for MTX. Patient's history is significant for infertility and prior loss at 15wk in the setting of hyperemesis/severe dehydration/ARF as well as Obesity. PLAN: 1. I discussed the option of management of ectopic with methotrexate vs surgery at length, thoroughly discussing all r/b/a. Patient elects for methotrexate after our discussion. 2. 100mg IM Methotrexate now (this is 50mg/m2 with BSA 2m2) 3. Will follow hcg values as follows: Day 4 (Sep, also with CBC/CMP), Day 7 (Sep), Day 14 (Sep), Day 21 (Oct). Patient given lab slips for 4 different days to perform at [facility] because she is a very difficult blood draw and has had good success with lab draws at [facility] 4. Discussed with patient that she cannot leave the area until after this is resolved and she agrees 5. Discussed to stop vitamin/folic acid, not take metformin, and not take any NSAIDs. Tylenol only prn pain. Vaginal rest and no vigorous exercise. 6. Discussed return precautions at length- she may have abdominal discomfort, but any severe pain she needs to return to ED for (or dizziness/syncope) 7. Our clinic RN, Leela Pedersen, will assist patient with the Methotrexate follow-up by keeping in contact with her and directing next steps 8. Patient to continue following with Dr. Sweeney who was planning to perform laparoscopy with chromopertubation for patient just before she became Dr. Liz Wheatley MD Vital Signs/I&O Vital Signs Date Time Temp Pulse Resp B/P (MAP) Pulse Ox O2 Delivery O2 Flow Rate FiO2 10/02/19 21:14 98.8 89 18 130/63 (85) 100 Room Air Laboratory Data Labs 24H Laboratory Tests 2 10/02/19 11:43: Urine Color YELLOW, Urine Appearance CLEAR, Urine pH 6.0, Urine Specific Geraldine 1.023, Urine Protein NEGATIVE, Urine Glucose (UA) NEGATIVE, Urine Ketones NEGATIVE, Urine Blood NEGATIVE, Urine Nitrite NEGATIVE, Urine Bilirubin NEGATIVE, Urine Urobilinogen 0.2, Urine Leukocyte Esterase NEGATIVE, Urine WBC (Auto) 1, Urine RBC (Auto) 2, Urine Hyaline Casts (Auto) 1, Urine Bacteria (Auto) NEGATIVE, Urine Squamous Epithelial Cells 1, Urine Mucus (Auto) SMALL, Urine Sperm (Auto) 10/02/19 12:50: Immature Granulocyte % (Auto) 0.4, Neutrophils (%) (Auto) 57.0, Lymphocytes (%) (Auto) 31.3, Monocytes (%) (Auto) 7.2H, Eosinophils (%) (Auto) 3.5H, Basophils (%) (Auto) 0.6, Neutrophils # (Auto) 3.9, Lymphocytes # (Auto) 2.1, Monocytes # (Auto) 0.5, Eosinophils # (Auto) 0.2, Basophils # (Auto) 0.0, Nucleated Red Blood Cells % (auto) 0.0, Anion Gap 8, Glomerular Filtration Rate > 60.0, Calcium Level 9.1, Total Bilirubin 0.4, Direct Bilirubin < 0.1, Aspartate Amino Transf (AST/SGOT) 19, Alanine Aminotransferase (ALT/SGPT) 13, Alkaline Phosphatase 61, Total Protein 7.4, Albumin 3.7, Albumin/Globulin Ratio 1.00, Human Chorionic Gonadotropin, Quant 3146 10/02/19 13:25: Chlamydia trachomatis DNA (AMARILIS) NEGATIVE, Neisseria gonorrhoeae DNA (AMARILIS) NEGATIVE CBC/BMP Laboratory Tests 10/02/19 12:50 Microbiology Microbiology 10/02/19 Wet Prep - Final, Complete Allergies Coded Allergies: No Known Allergies (Unverified , 10/02/19) Home Medications Scheduled Loteprednol Etabonate (Lotemax) 0.5% 5ML Drops.susp, 1 DROP OU BID, (Reported) Magnesium Chloride (Mag Delay) 64 Mg Tablet.dr, 64 MG PO BID, (Reported) Mineral Oil/Petrolatum,White (Lubrifresh Pm Eye Ointment) 3.5 Gm Oint...g., 1 APPLIC OU QHS, (Reported) APPLY THIN LINE UNDER EYE Pnv,Calcium 72/Iron/Folic Acid ( Vitamin Plus Low Iron) 1 Each Tablet, 1 TAB PO QHS, (Reported) Potassium Chloride (Potassium Chloride) 10 Meq Capsule.er, 10 MEQ PO DAILY, (Reported) Prednisolone Acetate (Prednisolone Acetate 1% Opth Susp) 5 Ml Drops.susp, 1 DROP OS TID, (Reported) Liz Wheatley MD Oct 03, 2019 01:29
== END 2019-10-02 21:41 | disposition home or self-care (01) ==
LOC: M ED 11:23
DX: O00.90 Unspecified ectopic pregnancy without intrauterine pregnancy (principal); Z79.899 Other long term (current) drug therapy; Z87.59 Personal history of other complications of pregnancy, childbirth and the puerperium
CPT/HCPCS: 36415; 76801; 76817; 80048; 80076; 81001; 84702; 85025; 86850; 86900; 86901; 87210; 87491; 87591; 93041; 93976; 94760; 96372; 99284; J9260

== ENCOUNTER → 2019-10-06 | Outpatient (CLI) | payer OTHER ==
[~2019-10-06] MED LIST changes: +LUBR1OIN OU; +POTA10CA32 PO; +PREDOPD OS
[2019-10-06 13:01] LABS: BASO # 0.1 10^3/uL (0.0-0.2); BASO % 0.9 % (0.0-1.0); EOS # 0.2 10^3/uL (0.0-0.5); EOS % 3.3 % (0.0-3.0); HEMATOCRIT 34.3 % (36.0-47.0); HEMOGLOBIN 10.9 g/dl (12.0-15.5); LYMPH # 2.3 10^3/uL (1.5-5.0); LYMPH % 42.2 % (24.0-44.0); MEAN CORPUSCULAR HEMOGLOBIN 30.2 pg (27.0-33.0); MEAN CORPUSCULAR HGB CONC 31.8 g/dl (32.0-36.5); MONO # 0.3 10^3/uL (0.0-0.8); MONO % 4.6 % (0.0-5.0); NEUTROPHILS # 2.7 10^3/uL (1.5-8.5); NEUTROPHILS % 48.8 % (36.0-66.0); PLATELET COUNT, AUTOMATED 288 10^3/uL (150-450); RED BLOOD COUNT 3.61 10^6/uL (4.00-5.40); WHITE BLOOD COUNT 5.5 10^3/uL (4.0-10.0)
[2019-10-06 13:36] LABS: ALBUMIN 3.5 GM/DL (3.2-5.2); ALT/SGPT 13 U/L (12-78); BILIRUBIN,TOTAL 0.3 MG/DL (0.2-1.0); BLOOD UREA NITROGEN 9 MG/DL (7-18); CALCIUM LEVEL 8.6 MG/DL (8.5-10.1); CARBON DIOXIDE LEVEL 24 MEQ/L (21-32); CHLORIDE LEVEL 106 MEQ/L (98-107); CREATININE FOR GFR 0.79 MG/DL (0.55-1.30); GLOMERULAR FILTRATION RATE > 60.0 (>60); GLUCOSE, FASTING 83 MG/DL (70-100); HCG, SERUM QUANTITATIVE 5143 MIU/ML; POTASSIUM SERUM 4.1 MEQ/L (3.5-5.1); SODIUM LEVEL 138 MEQ/L (136-145); TOTAL PROTEIN 6.7 GM/DL (6.4-8.2)
== END ==
LOC: M LAB 11:23
PROVIDERS: ATTEND Emergency Medicine
DX: Z32.00 Encounter for pregnancy test, result unknown (principal)

== ENCOUNTER 2019-10-09 16:23 | Emergency (ER) | payer OTHER ==
[~2019-10-09] VITALS: Ht 152.4 cm; Wt 96.0 kg
[2019-10-09 17:18] LABS: HEMOGLOBIN 11.3 g/dl (12.0-15.5); MEAN CORPUSCULAR HEMOGLOBIN 29.4 pg (27.0-33.0); MEAN CORPUSCULAR HGB CONC 31.4 g/dl (32.0-36.5); MEAN CORPUSCULAR VOLUME 93.8 fl (80.0-96.0); PLATELET COUNT, AUTOMATED 325 10^3/uL (150-450); RED BLOOD COUNT 3.84 10^6/uL (4.00-5.40); WHITE BLOOD COUNT 6.7 10^3/uL (4.0-10.0)
[2019-10-09 17:47] LABS: ALBUMIN 3.7 GM/DL (3.2-5.2); ALT/SGPT 13 U/L (12-78); BILIRUBIN,TOTAL 0.3 MG/DL (0.2-1.0); BLOOD UREA NITROGEN 7 MG/DL (7-18); CALCIUM LEVEL 8.8 MG/DL (8.5-10.1); CARBON DIOXIDE LEVEL 28 MEQ/L (21-32); CHLORIDE LEVEL 106 MEQ/L (98-107); CREATININE FOR GFR 0.83 MG/DL (0.55-1.30); GLOMERULAR FILTRATION RATE > 60.0 (>60); GLUCOSE, FASTING 81 MG/DL (70-100); POTASSIUM SERUM 3.3 MEQ/L (3.5-5.1); SODIUM LEVEL 139 MEQ/L (136-145); TOTAL PROTEIN 7.4 GM/DL (6.4-8.2)
--- NOTE | 2019-10-09 17:48 | IPNPDOC ---
Text Note Date of Service The patient was seen on 10/09/19. 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 patient denies pain/n/v. Vaginal bleeding stopped. PAST MEDICAL HISTORY: 1. 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 vit D deficiency 4. had acute renal failure with severe dehydration related to hyperemesis and 15wk loss in Oct 2018 5. 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 PCOS 7. Obesity (BMI 40) PAST SURGICAL HISTORY: 1. corneal transplants (L , R 2011) 2. breast reduction 2005 3. 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 GENERAL APPEARANCE: NAD, sitting up in bed, conversant but tearful ABDOMEN: soft, obese, NTTP hcg: Sep 17: 4822 Sep 20: 5143 a/p patient with diagnosis of ectopic s/p mtx treatment on . hcg quant decreased by 6%. Discussed with patient that we expect at least 15% decrease in hcg value from day 4 to day 7 to consider successful therapy. Discussed with patient option of expectant management and wait to see if continues to resolve on its own vs. additional mtx injection vs. surgical management. Risks of each option discussed. Risk of rupture causing life threatening intraabdominal bleeding with expectant management as well as additional mtx injection explained to patient. Patient expresses understanding and she desires to have second dose of mtx. Repeat dose 100mg today. follow up for day 4 and day 7 labs discussed with patient. return to ED precautions given. patient signed consent form. Le, DO VS,Fishbone, I+O VS, Fishbone, I+O Laboratory Tests 10/09/19 16:57 Vital Signs Date Time Temp Pulse Resp B/P (MAP) Pulse Ox O2 Delivery O2 Flow Rate FiO2 10/09/19 17:11 10/09/19 16:24 97.8 95 15 100 Room Air ARON JOHNS DO Oct 09, 2019 17:48
[2019-10-09] MEDS ORDERED: METHOTREXATE 50MG/2ML VIAL (J9260 PER 50MG) IM ONE (19:00)
[2019-10-09 21:37] VITALS: BP 139/81
== END 2019-10-09 21:38 | disposition home or self-care (01) ==
LOC: M ED 16:23
DX: O00.91 Unspecified ectopic pregnancy with intrauterine pregnancy (principal); E28.2 Polycystic ovarian syndrome; K21.9 Gastro-esophageal reflux disease without esophagitis; F41.9 Anxiety disorder, unspecified
CPT/HCPCS: 36415; 80053; 81001; 84702; 85027; 96372; 99284; J9260

== ENCOUNTER → 2019-10-09 | Outpatient (CLI) | payer OTHER | LOC: M LAB 10:48 | PROVIDERS: ATTEND Emergency Medicine | DX: Z34.90 Encounter for supervision of normal pregnancy, unspecified, unspecified trimester (principal); Z3A.00 Weeks of gestation of pregnancy not specified ==

== ENCOUNTER 2019-10-12 11:39 | Emergency (ER) | payer OTHER ==
[~2019-10-12] VITALS: Ht 152.4 cm; Wt 95.8 kg
[2019-10-12] MEDS ORDERED: NS 1,000 ML IV ONE (12:30)
[2019-10-12 13:11] LABS: BASO % 0.5 % (0.0-1.0); EOS # 0.2 10^3/uL (0.0-0.5); EOS % 4.7 % (0.0-3.0); HEMATOCRIT 35.2 % (36.0-47.0); HEMOGLOBIN 11.3 g/dl (12.0-15.5); LYMPH # 1.4 10^3/uL (1.5-5.0); LYMPH % 35.1 % (24.0-44.0); MEAN CORPUSCULAR HEMOGLOBIN 30.1 pg (27.0-33.0); MEAN CORPUSCULAR HGB CONC 32.1 g/dl (32.0-36.5); MEAN CORPUSCULAR VOLUME 93.6 fl (80.0-96.0); MONO # 0.1 10^3/uL (0.0-0.8); NEUTROPHILS # 2.3 10^3/uL (1.5-8.5); NEUTROPHILS % 56.5 % (36.0-66.0); PLATELET COUNT, AUTOMATED 298 10^3/uL (150-450); RED BLOOD COUNT 3.76 10^6/uL (4.00-5.40)
--- NOTE | 2019-10-12 13:49 | REP ---
First trimester obstetric ultrasound, emergency room request: Comparison is 10/02/2019. On the comparison study there was a left ectopic gestation. The patient reportedly was given methotrexate therapy 3 days ago. The study is performed with transabdominal, endovaginal and Doppler ultrasound assessment. The left adnexal ectopic gestation is again identified. The gestational sac measures 1.9 x 1.6 x 2.0 cm. This previously this measured 2.1 x 3.2 x 3.8 cm. There appears to be a pole within the gestational sac, today. This was not present previously. The pole measures 5.26 mm corresponding to a gestational age of 6 weeks 2 days. There is no cardiac activity. The There was a yolk sac previously. This is not visible today. There is free fluid adjacent to the ectopic gestation in the left adnexa. This was not present on the prior study. The uterus is anteverted and normal size measuring 8.9 x 4.5 x 5.1 cm. The endometrium is not thickened measuring 5 mm. There is no intrauterine gestation. The right ovary measures 3.5 x 2.2 x 2.4 cm. Left ovary measures 4.1 x 1.9 x 3.3 cm. The ovaries are normal size. There are no dominant ovarian masses or cysts. Doppler assessment there is vascular flow in both ovaries. Impression: A pole is now visible within the left ectopic gestational sac. There is no cardiac activity. There is free fluid adjacent to the ectopic gestation as an interval change. Gestational age based on pole crown-rump length is 6 weeks 2 days. Electronically Signed by Kirit Byrnes MD 10/12/2019 01:41 P
[2019-10-12 13:58] LABS: ALBUMIN 3.6 GM/DL (3.2-5.2); ALT/SGPT 17 U/L (12-78); BILIRUBIN,DIRECT < 0.1 MG/DL (0.0-0.2); BILIRUBIN,TOTAL 0.9 MG/DL (0.2-1.0); BLOOD UREA NITROGEN 6 MG/DL (7-18); CALCIUM LEVEL 8.8 MG/DL (8.5-10.1); CARBON DIOXIDE LEVEL 24 MEQ/L (21-32); CHLORIDE LEVEL 107 MEQ/L (98-107); CREATININE FOR GFR 0.88 MG/DL (0.55-1.30); GLOMERULAR FILTRATION RATE > 60.0 (>60); GLUCOSE, FASTING 79 MG/DL (70-100); HCG, SERUM QUANTITATIVE 3615 MIU/ML; LIPASE 70 U/L (73-393); POTASSIUM SERUM 6.4 MEQ/L (3.5-5.1); SODIUM LEVEL 138 MEQ/L (136-145); TOTAL PROTEIN 7.4 GM/DL (6.4-8.2)
[2019-10-12 16:36] LABS: BLOOD UREA NITROGEN 6 MG/DL (7-18); CALCIUM LEVEL 8.2 MG/DL (8.5-10.1); CARBON DIOXIDE LEVEL 26 MEQ/L (21-32); CHLORIDE LEVEL 108 MEQ/L (98-107); CREATININE FOR GFR 0.77 MG/DL (0.55-1.30); GLOMERULAR FILTRATION RATE > 60.0 (>60); GLUCOSE, FASTING 70 MG/DL (70-100); POTASSIUM SERUM 3.7 MEQ/L (3.5-5.1); SODIUM LEVEL 141 MEQ/L (136-145)
[2019-10-12 16:42] VITALS: BP 137/85
--- NOTE | 2019-10-12 16:58 | CR.PDOC ---
General Date of Consultation: Oct 12, 2019 Consultation REASON FOR CONSULTATION/CHIEF COMPLAINT: ectopic HISTORY OF PRESENT ILLNESS: Lesley is a 34yo with LMP 2 Aug, who has been undergoing tx of left sided ectopic with Methotrexate, presenting to ER by instruction of clinic physician for complaint of abdominal pain. She was diagnosed with ectopic on Sep and received first dose of MTX, hcg was 3,146. Day 4 hcg was 5,143. Day 7 hcg was 4,822 at which point she received second dose of MTX (so new day 1). Tod ay would be the new natural Day 4. Patient states she feels anxiety may have played a part in what she was feeling earlier. The pain was on the right side of her abdomen and has since ceased. She was feeling some difficulty breathing surrounding the other symptomatology, but she now feels that was anxiety driven. At this time, she has no pain and is having no lightheadedness/dizziness/etc. 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 In Oct 2018, during that first , she was admitted for acute renal failure related to severe dehydration from hyperemesis and she experienced a demise at 15wk. She delivered the fetus and was discharged home, but days later was re-admitted for retained products and underwent D&C. Current was highly desired. She was discovered to be on labs done just prior to planned diagnostic laparoscopy/chromopertubation in the workup for infertility. ALLERGIES: Please see below. HOME MEDICATIONS: Please see below. PAST MEDICAL HISTORY: 1. 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 vit D deficiency 4. had acute renal failure with severe dehydration related to hyperemesis and 15wk loss in Oct 2018 5. 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 PCOS 7. Obesity (BMI 40) PAST SURGICAL HISTORY: 1. corneal transplants (L , R 2011) 2. breast reduction 2005 3. 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 GENERAL APPEARANCE: NAD, sitting up in bed, conversant and comfortable ABDOMEN: soft, obese, NTTP. NO rebound/guarding. Extremities: no edema of BLE LABORATORY DATA: Please see below. H/H 11.3/35.2, plt 298 hcg 3,146 --> 5143 --> 4822 --> 3615 (today) A pos MBT Radiology: TVUS 10/12/2019 Impression: First trimester obstetric ultrasound, emergency room request: Comparison is 10/02/2019. On the comparison study there was a left ectopic gestation. The patient reportedly was given methotrexate therapy 3 days ago. The study is performed with transabdominal, endovaginal and Doppler ultrasound assessment. The left adnexal ectopic gestation is again identified. The gestational sac measures 1.9 x 1.6 x 2.0 cm. This previously this measured 2.1 x 3.2 x 3.8 cm. There appears to be a pole within the gestational sac, today. This was not present previously. The pole measures 5.26 mm corresponding to a gestational age of 6 weeks 2 days. There is no cardiac activity. The There was a yolk sac previously. This is not visible today. There is free fluid adjacent to the ectopic gestation in the left adnexa. This was not present on the prior study. The uterus is anteverted and normal size measuring 8.9 x 4.5 x 5.1 cm. The endometrium is not thickened measuring 5 mm. There is no intrauterine gestation. The right ovary measures 3.5 x 2.2 x 2.4 cm. Left ovary measures 4.1 x 1.9 x 3.3 cm. The ovaries are normal size. There are no dominant ovarian masses or cysts. Doppler assessment there is vascular flow in both ovaries. Impression: A pole is now visible within the left ectopic gestational sac. There is no cardiac activity. There is free fluid adjacent to the ectopic gestation as an interval change. Gestational age based on pole crown-rump length is 6 weeks 2 days. ASSESSMENT: Lesley is a 34yo with LMP 2 Dec, who has been undergoing tx of left sided ectopic with Methotrexate, has received 2 doses. Had some abdominal pain earlier that is now resolved. BENIGN abdominal exam. She is on Day 4 of 2nd MTX dosing and hcg is declining from peak 5143 to now 3615. While u/s now shows FP in left adnexa as well as some adjacent fluid, it is likely that the FP was present with the earlier higher quant but only just now seen. Given patient's stability (and current lack of sx), it is likely that the MTX is effectively resolving the ectopic . PLAN: 1. I discussed the results of u/s and hcg with patient and her . They are comfortable with plan to continue following hcg. 2. Patient has lab form for hcg draw on Wednesday, day 7 in new MTX dosing schedule. Dr. Barclay is aware of plan for hcg on Wednesday (he is art education professor that day). 3. Continue to avoid vitamin/folic acid, metformin, and do not take any NSAIDs. Tylenol only prn pain. Vaginal rest and no vigorous exercise. 4. Discussed return precautions at length- she may have abdominal discomfort, but any severe pain she needs to return to ED for (or dizziness/syncope) 5. Patient to continue following with Dr. Sweeney who was planning to perform laparoscopy with chromopertubation for patient just before she became 6. Patient and today request referral to [facility] to discuss IVF Dr. Liz Wheatley MD Vital Signs/I&O Vital Signs Date Time Temp Pulse Resp B/P (MAP) Pulse Ox O2 Delivery O2 Flow Rate FiO2 10/12/19 14:25 98.7 93 18 139/76 (97) 100 Room Air Laboratory Data Labs 24H Laboratory Tests 2 10/12/19 12:52: Immature Granulocyte % (Auto) 0.2, Neutrophils (%) (Auto) 56.5, Lymphocytes (%) (Auto) 35.1, Monocytes (%) (Auto) 3.0, Eosinophils (%) (Auto) 4.7H, Basophils (%) (Auto) 0.5, Neutrophils # (Auto) 2.3, Lymphocytes # (Auto) 1.4L, Monocytes # (Auto) 0.1, Eosinophils # (Auto) 0.2, Basophils # (Auto) 0.0, Nucleated Red Blood Cells % (auto) 0.0, Anion Gap 7L, Glomerular Filtration Rate > 60.0, Calcium Level 8.8, Total Bilirubin 0.9#, Direct Bilirubin < 0.1, Aspartate Amino Transf (AST/SGOT) 54H, Alanine Aminotransferase (ALT/SGPT) 17, Alkaline Phosphatase 53, Total Protein 7.4, Albumin 3.6, Albumin/Globulin Ratio 0.95L, Lipase 70L, Human Chorionic Gonadotropin, Quant 3615 CBC/BMP Laboratory Tests 10/12/19 12:52 Allergies Coded Allergies: No Known Allergies (Unverified , 10/02/19) Home Medications Scheduled Loteprednol Etabonate (Lotemax) 0.5% 5ML Drops.susp, 1 DROP OU BID, (Reported) Magnesium Chloride (Mag Delay) 64 Mg Tablet.dr, 64 MG PO BID, (Reported) Mineral Oil/Petrolatum,White (Lubrifresh Pm Eye Ointment) 3.5 Gm Oint...g., 1 APPLIC OU QHS, (Reported) APPLY THIN LINE UNDER EYE Pnv,Calcium 72/Iron/Folic Acid ( Vitamin Plus Low Iron) 1 Each Tablet, 1 TAB PO QHS, (Reported) Potassium Chloride (Potassium Chloride) 10 Meq Capsule.er, 10 MEQ PO DAILY, (Reported) Prednisolone Acetate (Prednisolone Acetate 1% Opth Susp) 5 Ml Drops.susp, 1 DROP OS TID, (Reported) Liz Wheatley MD Oct 12, 2019 15:59
== END 2019-10-12 16:45 | disposition home or self-care (01) ==
LOC: M ED 11:39
DX: O00.91 Unspecified ectopic pregnancy with intrauterine pregnancy (principal); E55.9 Vitamin D deficiency, unspecified; E28.2 Polycystic ovarian syndrome; Z79.899 Other long term (current) drug therapy

== ENCOUNTER → 2019-10-15 | Outpatient (CLI) | payer OTHER | LOC: M LAB 10:47 | PROVIDERS: ATTEND Emergency Medicine | DX: O00.90 Unspecified ectopic pregnancy without intrauterine pregnancy (principal) ==

== ENCOUNTER 2019-10-20 17:11 | Day surgery (SDC) | payer OTHER ==
[~2019-10-20] VITALS: Ht 152.4 cm; Wt 94.3 kg
[~2019-10-20 17:11] MED LIST changes: +LOTE0.5S OD; +LUBR1OIN OS; -LUBR1OIN OU
[2019-10-20 18:14] LABS: HEMATOCRIT 32.4 % (36.0-47.0); HEMOGLOBIN 10.4 g/dl (12.0-15.5); MEAN CORPUSCULAR HEMOGLOBIN 29.9 pg (27.0-33.0); MEAN CORPUSCULAR HGB CONC 32.1 g/dl (32.0-36.5); MEAN CORPUSCULAR VOLUME 93.1 fl (80.0-96.0); PLATELET COUNT, AUTOMATED 315 10^3/uL (150-450); RED BLOOD COUNT 3.48 10^6/uL (4.00-5.40); WHITE BLOOD COUNT 6.6 10^3/uL (4.0-10.0)
--- NOTE | 2019-10-20 19:00 | REPVR ---
PROCEDURE INFORMATION: Exam: US , Transvaginal Exam date and time: 10/20/2019 6:44 PM Age: 34 years old Clinical indication: complicated by abdominal or pelvic pain; Left lower quadrant; First trimester; Gestational age or lmp: ? ; ; Additional info: Ectopic, severe llq pain TECHNIQUE: Imaging protocol: Real-time transvaginal obstetrical ultrasound of the maternal pelvis and a first trimester with image documentation. Transvaginal imaging was used for better evaluation of the fetus and adnexa. COMPARISON: US TRANSMISSION BUILDER 09/18/2019 8:21 PM FINDINGS: GESTATION: Gestation: See Left Adnexa Finding. MATERNAL: Uterus: Uterus measures 9.7 x 4.5 x 5.1 cm. Endometrial echo complex measures 9.4 mm. No gestational sac or pole demonstrated. Right adnexa: Right ovary measures 3.6 x 2.1 x 2.4 cm. Normal flow. Left adnexa: Left ovary measures 2.7 x 1.4 x 2.9 cm. Large heterogeneous complex mass surrounds the left ovary associated with complex fluid posterior to the left ovary and extending into the cul-de-sac as well as a small sac demonstrating a echogenic rind in the left adnexal region measuring 1.7 x 1.7 cm. Hypervascularity demonstrated in the left adnexal region. Findings are worrisome for a ruptured ectopic . The pole is not demonstrated. IMPRESSION: 1. Large heterogeneous complex mass surrounds the left ovary associated with complex fluid posterior to the left ovary and extending into the cul-de-sac as well as a small sac demonstrating a echogenic rind in the left adnexal region measuring 1.7 x 1.7 cm. Findings are worrisome for a ruptured ectopic . 2. A critical call has been made to speak with the ordering physician/practitioner. This report will be amended once consultation has occurred. Electronically signed by: Mikey Chapa On 10/20/2019 19:02:10 PM
[2019-10-20] MEDS ORDERED: ONDANSETRON 4MG/2ML VIAL (J2405) IV ONE (19:15)
[2019-10-20] MEDS ORDERED: MORPHINE 4 MG/ML 1ML VIAL/SYRINGE (J2270) IV ONE (19:15)
[2019-10-20] MEDS ORDERED: NS 1,000 ML IV ONE (20:00)
[2019-10-20] MEDS ORDERED: METF-839 PO (20:19)
[2019-10-20] MEDS ORDERED: dexameTHASONE 4 MG/ML 1ML VIAL (J1100) As Ordered ONE (20:25)
[2019-10-20] MEDS ORDERED: ONDANSETRON 4MG/2ML VIAL (J2405) As Ordered ONE (20:25)
[2019-10-20] MEDS ORDERED: LIDOCAINE 2% INJ 100 MG/5 ML SDV (FOR ANES.) As Ordered ONE (20:25)
[2019-10-20] MEDS ORDERED: propofoL 200 MG/20 ML VIAL As Ordered ONE (20:25)
[2019-10-20] MEDS ORDERED: fentaNYL 100 MCG/2 ML INJECTION (J3010) As Ordered ONE ×2 (20:28→21:54)
[2019-10-20] MEDS ORDERED: MIDAZOLAM INJ 2 MG/2 ML VIAL (J2250) As Ordered ONE (20:29)
[2019-10-20] MEDS ORDERED: ROCURONIUM BROMIDE 50 MG/5 ML VIAL As Ordered ONE ×2 (20:31→22:13)
[2019-10-20] MEDS ORDERED: BUPIVACAINE HCL 0.25% 30 ML VIAL As Ordered ONE (20:49)
[2019-10-20] MEDS ORDERED: ACETAMINOPHEN 1000MG 100ML IV BTL (OFIRMEV) (J0131 PER 10MG) As Ordered ONE (21:28)
[2019-10-20] MEDS ORDERED: KETOROLAC 60 MG/2 ML VIAL (J1885) As Ordered ONE (21:53)
[2019-10-20] MEDS ORDERED: SUGAMMADEX SODIUM 500 MG/5 ML VIAL (BRIDION) As Ordered ONE (21:53)
[2019-10-20] MEDS ORDERED: METHYLENE BLUE 0.5% (5MG/ML) 10 ML AMP (PROVAYBLUE)(Q9968 PER 1MG) As Ordered ONE (22:19)
[2019-10-20] MEDS ORDERED: oxyCODONE 5MG TAB PO PRN (23:00)
[2019-10-20] MEDS ORDERED: LR 1,000 ML IV SCH (23:00)
[2019-10-20] MEDS ORDERED: IBUPROFEN 800 MG TAB PO PRN (23:00)
[2019-10-20] MEDS ORDERED: PERCOCET 5MG/325MG TAB PO PRN (23:00)
[2019-10-20] MEDS ORDERED: ONDANSETRON 4MG/2ML VIAL (J2405) IV PRN (23:00)
[2019-10-20] MEDS ORDERED: fentaNYL 100 MCG/2 ML INJECTION (J3010) IV PRN (23:00)
[2019-10-20 23:53] VITALS: BP 115/70
[2019-10-21] VITALS (9 sets, daily range): BP systolic 120–138; BP diastolic 60–80
[2019-10-21] MEDS: PERCOCET 5MG/325MG TAB PO PRN ×3 (00:14→18:17)
[2019-10-21] MEDS: ONDANSETRON 4MG/2ML VIAL (J2405) IV PRN ×3 (07:08→18:16)
[2019-10-21] MEDS: DOCUSATE SODIUM 100 MG CAP PO SCH ×2 (08:45→20:38)
--- NOTE | 2019-10-21 09:16 | IPNPDOC ---
Text Note Date of Service The patient was seen on 10/21/19. NOTE POD 1 Lesley is a 34yo doing well POD 1 s/p uncomplicated emergency la paroscopic left salpingectomy with chromopertubation of right fallopian tube for ruptured left ectopic in the setting of abdominal pain and failed methotrexate treatment x2 doses. She notes abdominal pain this morning, had 1 percocet around 0600 which was not quite sufficient to address her pain. She is voiding spontaneously. Has tolerated crackers without emesis so far. Needed assistance from the nurse to ambulate to the commode secondary to pain, but no issues with lightheadedness/dizziness. No f/c/n/v/CP/SOB. Vitals wnl, afebrile General: WDWN, resting in bed, appears mildly uncomfortable Abdomen: soft, appropriately tender to palpation around umbilical area, no rebound/guarding. Trocar sites all intact with dermabond overlying, no erythema/drainage/dehiscence Extremities: no edema of BLE, no pain with palpation of calves Assessment: Lesley is a 34yo doing well POD 1 s/p uncomplicated emergency laparoscopic left salpingectomy with chromopertubation of right fallopian tube for ruptured left ectopic in the setting of abdominal pain and failed methotrexate treatment x2 doses. Vitals wnl, exam benign- appropriately TTP in her abdomen and incisions well reapproximated. Patient having pain and needing assistance to ambulate 2/2 pain, but also can have more pain medication than she has so far received. Plan: -Discharge home later today if able to care for self fully with pain meds -Paper scripts given for percocet/ibuprofen/colace -Return precautions discussed -Patient to call the clinic on Wednesday to set a post-op appt in [address] Wheatley -No heavy lifting and vaginal rest for 2 weeks -Note work provided to for 4 days of leave to assist in her recovery MD LUZ MARINA Paredes Fishbone, I+O Lindy RAZA I+O Laboratory Tests 10/20/19 18:03 Vital Signs Date Time Temp Pulse Resp B/P (MAP) Pulse Ox O2 Delivery O2 Flow Rate FiO2 10/21/19 06:46 16 10/21/19 04:00 97.5 83 124/71 (88) 98 Room Air I&O- Last 24 Hours up to 6 AM 10/21/19 06:00 Intake Total 2650 ml Output Total 550 ml Balance 2100 ml Liz Wheatley MD Oct 21, 2019 09:16
--- NOTE | 2019-10-21 14:55 | RO ---
DATE OF PROCEDURE: 10/20/2019 SURGEON: Dr. Liz Wheatley BOND UNDERWRITER: Dr. Viktoriya Barclay ANESTHESIA: INDICATIONS FOR OPERATION: Lesley is a 34-year-old, (G) 2 now para (P) 0-0-2-0 who had a known left ectopic that was treated with two doses of methotrexate. She had an appropriately following hCG quant over the past 2 weeks since she was diagnosed on October 02 but as of 399 this morning she started to develop pain in the left lower part of her pelvis and the pain increased over the course of the day such that she was concern that she had a rupture of her ectopic as she had been given strong precautions to return. This ectopic occurred just prior to surgery that was planned to evaluate her for infertility because the had been a year since her only other which was a 15-week demise in the setting of severe dehydration and acute kidney injury. She had retained placenta without delivery a year ago and then needed a dilation and curettage afterwards. Prior to that they had 8 years of infertility so this was a very highly desired . Since there was a plan previously for investigation of her tubes I did want to investigate whether the right fallopian tube was patent along with treating the left ectopic rupture that was suspected. PREOPERATIVE DIAGNOSIS: Suspected rupture of the left ectopic in the setting of abdominal pain. POSTOPERATIVE DIAGNOSIS: Suspected rupture of the left ectopic in the setting of abdominal pain with the exception confirmed left ectopic . MATERIAL FORWARDED TO THE LAB: Left fallopian tube. DESCRIPTION OF FINDINGS: Laparoscopic findings included normal appearing liver edge and appendix. Uterus was overall normal in appearance though the bladder fold seemed to the ride up on the uterus higher than usual though she has no history of any prior surgeries that could have caused bladder scarring. The ovaries were normal in appearance. The right fallopian tube seemed somewhat clubbed toward the end but with chromopertubation did have fluid effluxed through the tube. The left fallopian tube was engorged with hematosalpinx and it was very obvious that that was site of the ectopic . There was approximately 150 mL of blood and clot within the pelvis that was emanating from the left fallopian tube. INFECTION CLASSIFICATION: II. ESTIMATED BLOOD LOSS: 150 mL of blood and clot that were present prior to the start of surgery and 10 mm related to the surgery itself. URINE OUTPUT: 400 mm of clear yellow urine. IV FLUIDS: 1500 mL of lactated Ringer's. OPERATION PERFORMED: Diagnostic laparoscopy with left salpingectomy and chromopertubation of right fallopian tube. DESCRIPTION OF OPERATION: After obtaining informed consent Lesley was taken to the operating room. General endotracheal anesthesia was established. She was placed in low lithotomy position. She was prepped and draped in the usual sterile fashion. She was placed in Trendelenburg position. Grace catheter was placed. Ty Ty speculum was placed in the vagina and visualization of the cervix was obtained. Anterior lip of the cervix was grasped with a single-tooth tenaculum. Cervix was sequentially dilated using Hanks dilators. The uterus sounded to 10 cm. The ZeroPercent.us uterine manipulator was placed through the cervix into the uterus and the tenaculum was removed with site hemostasis observed and bivalve speculum was removed. The patient was taken out of Trendelenburg position and a 5 mm incision was made in the infraumbilical fold with the scalpel after injecting with 0.25% Marcaine. Prema clamp was used to spread the subcutaneous tissue. The lower abdominal wall was manually grabbed and lifted up with aid of towel clamps and an Optiview trocar was placed at a 90 degrees angle, laparoscope was advanced through the port and intra-abdominal placement was confirmed with no injury noted below the point of entry. Continuous slow carbon dioxide began to establish a pneumoperitoneum at 15 mmHg pressure. We then began our pelvic survey and it was very obvious that there was blood within the pelvis so we placed the next trocar in the right lower quadrant anesthetizing with 0.25% Marcaine and making a 5 mm incision with the scalpel to place a 5 mm trocar under direct visualization. We then placed an 11-mm port in the left lower quadrant after anesthetizing with 0.25% Marcaine and we placed this also under direct visualization. Pelvic and abdominal survey were conducted beginning anterior cul-de-sac which have blood present anterior portion of the uterus which had the bladder fold more superior on the anterior aspect of the uterus then normal, but no obvious scarring present. The right fallopian tube was normal in appearance as well as the round ligaments, broad ligaments, the ovaries were also normal appearance, but left fallopian tube was engorged with blood and taught with the blood within it and the posterior cul-de-sac was filled with blood and clot such that the ovaries and uterus were floating. The survey of her upper abdomen revealed a normal-appearing appendix and normal appearing liver edge. The LigaSure was used to undermine just underneath the left fallopian tube and removing it with hemostasis. The pelvis was completely suctioned of all blood clot and blood. A EndoCatch bag was inserted through the 11-mm port and the left fallopian tube was placed within it, it was brought up to the level of the skin. Prema clamp was used to stretch the fascia. A small amount of surrounding the bag so that the EndoCatch bag with the fallopian tube within it could be lifted up an out of the abdomen intact. I used a Tamir-Torrez device to close the fascia of the 11-mm port in routine fashion and it was seen to be airtight after tying the knot down. We then looked at the pedicle where the left fallopian tube had been removed and it was completely hemostatic. At that point I made the decision to perform chromopertubation so Dr. Barclay remained up by the abdomen and I went down to the vaginal portion to place a speculum, removed the Hulka uterine manipulator and placed a tip of the Nati uterine manipulator through the cervix so the balloon with 3 mL of air and then used the other channel to push methylene blue dye through that was done by Dr. Barclay and we did note watching with a laparoscopy that the methylene blue emanated from the end of the right fallopian tubes thus ensuring that it was patent despite a somewhat clubbed appearance. At that point I then removed the balloon and the whole tip of the Nati and did a vaginal sweep revealed nothing retained in the vagina. After changing gloves returned to the abdomen and the other ports were removed after releasing the pneumoperitoneum the incisions were approximated with 4-0 Monocryl and Dermabond. The Grace catheter was removed at the end of the procedure as well. The patient was returned to supine position. All counts were correct times two. She tolerated the procedure well and was awakened from general anesthesia and taken to the recovery room in stable condition.
[2019-10-21] MEDS ORDERED: COLA100C5 PO (18:56)
[2019-10-21] MEDS ORDERED: IBUP200C25 PO (18:56)
[2019-10-21] MEDS ORDERED: PERCOCET PO (18:56)
[2019-10-21] MEDS: SYSTANE OS SCH (20:38)
[2019-10-21] MEDS: prednisoLONE ACET 1% OPHTH SUSP 5ML OS SCH (20:38)
[2019-10-22] MEDS: PERCOCET 5MG/325MG TAB PO PRN ×3 (00:23→15:26)
[2019-10-22] MEDS: ONDANSETRON 4MG/2ML VIAL (J2405) IV PRN (00:27)
[2019-10-22] MEDS: ONDANSETRON 4 MG TAB (S0181) PO PRN ×3 (00:56→15:25)
[2019-10-22 06:00] VITALS: BP 117/60
[2019-10-22] MEDS: DOCUSATE SODIUM 100 MG CAP PO SCH (08:38)
[2019-10-22] MEDS: prednisoLONE ACET 1% OPHTH SUSP 5ML OS SCH (08:39)
[2019-10-22] MEDS: SYSTANE OS SCH (08:41)
[2019-10-22] MEDS ORDERED: OPTHALMIC OD SCH (09:00)
[2019-10-22] MEDS ORDERED: LOTEMAX 0.5% OD SCH (09:00)
[2019-10-22 14:00] VITALS: BP 132/69
--- NOTE | 2019-10-22 17:05 | DS.PDOC ---
Discharge Summary General Date of Admission 20Oct2019 Date of Discharge 22Oct2019 Discharge Summary HOSPITAL COURSE: Lesley is a 34 yo female who was admitted to [facility] on 20Oct2019 due to a ruptured ectopic . She had a known ectopic , and had received multiple dose of MTX for treatment and was followed closely as an outpatient. She never became unstable, but HCGs were slow to drop significantly after undergoing MTX treatment. She presented to the ER on 20Oct2019 with worsening lower pelvic pain and imaging findings c/w possible ectopic rupture. Thus, she failed medical therapy and underwent an uncomplicated laparosocpic left salpingectomy and chromopertubation of the right fallopian tube on that same day. Pain control was somewhat difficult post operatively, so she was kept in the hospital until her pain was better controlled. Otherwise her postoperative course was unremarkable. On her day of discharge (22Oct2019) she met all appropriate discharge criteria. She was ambulating, voiding, tolerating a regular diet, had good pain control with PO medications. DISCHARGE MEDICATIONS: Please see below. ALLERGIES: Please see below. LABORATORY DATA: Please see below. ACTIVITY: pelvic rest for 4 weeks. No heavy lifting for 2 weeks. DIET: regular DISCHARGE PLAN: discharge home DISPOSITION: Discharge home on 22Oct2019. DISCHARGE INSTRUCTIONS: 1. Pelvic rest and no heavy lifting. ITEMS TO FOLLOWUP ON ON OUTPATIENT: 1. Called the [facility] on Wednesday and make a post op appointment in two weeks with Dr. Wheatley. DISCHARGE CONDITION: Stable. TIME SPENT ON DISCHARGE: Greater than 20 minutes. Matt Nowak DO Vital Signs/I&Os Vital Signs Date Time Temp Pulse Resp B/P (MAP) Pulse Ox O2 Delivery O2 Flow Rate FiO2 10/22/19 15:59 18 10/22/19 14:00 97.0 79 132/69 (90) 100 Room Air I&O- Last 24 Hours up to 6 AM 10/22/19 06:00 Intake Total 2630 ml Output Total 0 ml Balance 2630 ml Discharge Medications Scheduled Docusate Sodium (Colace) 100 Mg Capsule, 1 CAP PO BID, (Reported) Loteprednol Etabonate (Lotemax) 0.5% 5ML Drops.susp, 1 DROP OD DAILY, (Reported) Magnesium Chloride (Mag Delay) 64 Mg Tablet.dr, 64 MG PO BID, (Reported) Metformin HCl (Metformin HCl) 500 Mg Tablet, 500 MG PO BID, (Reported) TEMPORARILY STOPPED BY PHYSICIAN Mineral Oil/Petrolatum,White (Lubrifresh Pm Eye Ointment) 3.5 Gm Oint...g., 1 APPLIC OS TID, (Reported) APPLY THIN LINE UNDER EYE Pnv,Calcium 72/Iron/Folic Acid ( Vitamin Plus Low Iron) 1 Each Tablet, 1 TAB PO QHS, (Reported) Potassium Chloride (Potassium Chloride) 10 Meq Capsule.er, 10 MEQ PO DAILY, ( Reported) Prednisolone Acetate (Prednisolone Acetate 1% Opth Susp) 5 Ml Drops.susp, 1 DROP OS TID, (Reported) Scheduled PRN Ibuprofen (Ibuprofen) 200 Mg Capsule, 800 MG PO Q8H PRN for PAIN LEVEL 1-4, (Reported) Oxycodone/Acetaminophen (Oxycodone-Acetaminophen 5-325) 1 Each Tablet, 1 TAB PO Q6HP PRN for PAIN LEVEL 5-10, (Reported) Allergies Coded Allergies: No Known Allergies (Unverified , 10/02/19) MATT NOWAK DO Oct 22, 2019 17:04
== END 2019-10-22 16:15 | disposition home or self-care (01) ==
LOC: M ED 17:11 → M SDC 17:12 → CANRESERV 23:00 → ENRESERV 23:00 → M MS5PR 23:41 → M SDC 10-22 16:15
PROVIDERS: ATTEND Obstetrics & Gynecology
DX: O00.90 Unspecified ectopic pregnancy without intrauterine pregnancy (principal); R10.32 Left lower quadrant pain; E66.9 Obesity, unspecified; Z68.41 Body mass index [BMI] 40.0-44.9, adult; E28.2 Polycystic ovarian syndrome; Z94.7 Corneal transplant status; K21.9 Gastro-esophageal reflux disease without esophagitis; Z79.899 Other long term (current) drug therapy; Z79.84 Long term (current) use of oral hypoglycemic drugs
CPT/HCPCS: 58350; 58661; 76801; 80047; 83605; 84702; 85027; 86850; 86900; 86901; 88305; 96374; 96375; 96376; 99284; J0131; J1100; J1885; J2250; J2270; J2405; J3010; Q9968

== ENCOUNTER 2020-09-09 11:00 | Emergency (ER) | payer OTHER ==
[~2020-09-09] VITALS: Ht 154.9 cm; Wt 91.8 kg
[~2020-09-09 11:00] MED LIST changes: +COLA100C5 PO; +IBUP200C25 PO; +METF-839 PO; +PERCOCET PO
--- NOTE | 2020-09-09 12:47 | REP ---
INDICATION: Cramping. COMPARISON: 10/20/2019. TECHNIQUE: Real-time sonographic evaluation of pelvis performed utilizing transabdominal and endovaginal technique. FINDINGS: The uterus measures 8.3 x 4.8 x 5.2 cm and is retroverted. A sac-like structure is seen in the endometrial canal with a mean sac diameter of 3 mm, which would correspond to an estimated gestational age of 4 weeks 5 days. No yolk sac or pole is seen at this time. Right ovary measures 3.7 x 2.5 x 2.3 cm and left ovary 3.3 x 2.3 x 3.4 cm. There is no evidence of ovarian torsion bilaterally with duplex Doppler evaluation. A complex cystic structure in the left ovary may represent a hemorrhagic corpus luteum 1.7 cm in diameter. There is no other evidence of adnexal mass or free fluid. IMPRESSION: Sac-like structure in the endometrial canal with a diameter of 3 mm, corresponding to estimated gestational age 4 weeks 5 days. No yolk sac or pole is seen at this time. This likely represents a very early intrauterine , although ectopic cannot totally be excluded. Recommend correlation with serial quantitative beta HCG values. Recommend follow-up ultrasound in 2 weeks. <Electronically signed by Kirit Chin > 09/09/20 1474
[2020-09-09 14:15] LABS: APPEARANCE, URINE CLOUDY (CLEAR); BACTERIA, URINE AUTO 1+ (NEGATIVE); BILIRUBIN, URINE AUTO NEGATIVE (NEGATIVE); BLOOD, URINE BLOOD NEGATIVE (NEGATIVE); COLOR, URINE YELLOW (YELLOW); GLUCOSE, URINE (UA) AUTO NEGATIVE (NEGATIVE); KETONE, URINE AUTO 1+ mg/dL (NEGATIVE); LEUKOCYTE ESTERASE, URINE AUTO NEGATIVE (NEGATIVE); MUCUS, URINE SMALL (NEGATIVE); NITRITE, URINE AUTO NEGATIVE (NEGATIVE); PROTEIN, URINE AUTO 1+ mg/dL (NEGATIVE); RBC, URINE AUTO 2 /HPF (0-3); SPECIFIC GRAVITY URINE AUTO 1.023 (1.002-1.035); SQUAMOUS EPITHELIAL CELL UR AU 5 /HPF (0-6); UROBILINOGEN, URINE AUTO 0.2 mg/dL (0.0-2.0); WBC, URINE AUTO 2 /HPF (0-3)
[2020-09-09 15:47] LABS: BASO # 0.1 10^3/uL (0.0-0.2); BASO % 0.8 % (0.0-1.0); EOS # 0.2 10^3/uL (0.0-0.5); EOS % 2.6 % (0.0-3.0); HEMATOCRIT 38.1 % (36.0-47.0); HEMOGLOBIN 11.9 g/dl (12.0-15.5); LYMPH # 2.6 10^3/uL (1.5-5.0); LYMPH % 40.1 % (24.0-44.0); MEAN CORPUSCULAR HEMOGLOBIN 28.5 pg (27.0-33.0); MEAN CORPUSCULAR HGB CONC 31.2 g/dl (32.0-36.5); MEAN CORPUSCULAR VOLUME 91.1 fl (80.0-96.0); MONO # 0.5 10^3/uL (0.0-0.8); MONO % 7.3 % (0.0-5.0); NEUTROPHILS # 3.2 10^3/uL (1.5-8.5); NEUTROPHILS % 48.9 % (36.0-66.0); PLATELET COUNT, AUTOMATED 356 10^3/uL (150-450); RED BLOOD COUNT 4.18 10^6/uL (4.00-5.40); WHITE BLOOD COUNT 6.4 10^3/uL (4.0-10.0)
[2020-09-09 16:05] LABS: BLOOD UREA NITROGEN 6 MG/DL (7-18); CALCIUM LEVEL 9.2 MG/DL (8.5-10.1); CARBON DIOXIDE LEVEL 24 MEQ/L (21-32); CHLORIDE LEVEL 107 MEQ/L (98-107); CREATININE FOR GFR 0.87 MG/DL (0.55-1.30); GLOMERULAR FILTRATION RATE > 60.0 (>60); GLUCOSE, FASTING 80 MG/DL (70-100); HCG, SERUM QUANTITATIVE 994 MIU/ML; POTASSIUM SERUM 3.3 MEQ/L (3.5-5.1); SODIUM LEVEL 140 MEQ/L (136-145)
[2020-09-09 17:22] VITALS: BP 165/85
== END 2020-09-09 17:24 | disposition home or self-care (01) ==
LOC: M ED 11:00
DX: O20.0 Threatened abortion (principal); O99.341 Other mental disorders complicating pregnancy, first trimester; F41.9 Anxiety disorder, unspecified; E28.2 Polycystic ovarian syndrome; O99.611 Diseases of the digestive system complicating pregnancy, first trimester; K21.9 Gastro-esophageal reflux disease without esophagitis; O99.281 Endocrine, nutritional and metabolic diseases complicating pregnancy, first trimester; Z79.899 Other long term (current) drug therapy; Z79.84 Long term (current) use of oral hypoglycemic drugs; Z3A.01 Less than 8 weeks gestation of pregnancy

== ENCOUNTER → 2020-10-11 | Outpatient (REF) | payer OTHER ==
[~2020-10-11] MED LIST changes: +ASCO500T PO; +B-650TAB2 PO; +FERR325T81 PO; -LOTE0.5S OD; +MAGN400T35 PO; +MIRA3350 PO; +PREN1CHW6 PO; +Promethazine Suppository PR; +ZOFR4TAB16 PO
[2020-10-11 18:18] LABS: PERCENT SATURATION 24.2 % (13.2-45.0)
== END ==
LOC: M LAB REF 17:03
PROVIDERS: ATTEND Internal Medicine Nephrology
DX: D50.9 Iron deficiency anemia, unspecified (principal)

== ENCOUNTER 2020-10-18 09:46 | Observation (INO) | payer OTHER ==
[~2020-10-18] VITALS: Ht 154.9 cm; Wt 99.8 kg
[~2020-10-18 09:46] MED LIST changes: -ASCO500T PO; -B-650TAB2 PO; -FERR325T81 PO; -MAGN400T35 PO; -MIRA3350 PO; -PREN1CHW6 PO; -Promethazine Suppository PR; -ZOFR4TAB16 PO
--- OUTSIDE RECORDS SUMMARY | 2020-10-18 09:56 | CCD ---
Author Author [facility] Organization [facility] Address Unknown Phone Unavailable Care Team Providers Care Proof Reader Name Role Phone Ivan Dueñas MD Unavailable Unavailabl vinayak Dueñas, Ivan Olivera MD Unavailable Unavailabl vinayak Dueñas, Ivan Olivera MD Unavailable UnavailIvan Thrasher MD Unavailable UnavailIvan Thrasher MD Unavailable UnavailIvan Thrasher MD Unavailable Unavailabl Ivan Cramer MD Unavailable Unavailabl vinayak Dueñas, Ivan Olivera MD Unavailable Unavailabl Ivan Cramer MD Unavailable Unavailabl Ivan Cramer MD Unavailable Unavailabl Ivan Cramer MD Unavailable UnavailIvan Thrasher MD Unavailable Unavailabl Ivan Cramer MD Unavailable Unavailabl Ivan Cramer MD Unavailable Unavailabl Ivan Cramer MD Unavailable Unavailabl Ivan Cramer MD Unavailable Unavailabl Ivan Cramer MD Unavailable Unavailabl Ivan Cramer MD Unavailable Unavailabl Ivan Cramer MD Unavailable Unavailabl Ivan Cramer MD Unavailable Unavailabl Ivan Cramer MD Unavailable Unavailabl Ivan Cramer MD Unavailable Unavailabl Ivan Cramer MD Unavailable UnavailIvan Thrasher MD Unavailable UnavailIvan Thrasher MD Unavailable Unavailabl Ivan Cramer MD Unavailable UnavailIvan Thrasher MD Unavailable UnavailIvan Thrasher MD Unavailable UnavailIvan Thrasher MD Unavailable Unavailabl Ivan Cramer MD Unavailable Unavailabl Ivan Cramer MD Unavailable Unavailabl Ivan Cramer MD Unavailable Unavailabl e Arslansennelson, Ivan Olivera MD Unavailable Unavailabl e Weisennelson, Ivan Olivera MD Unavailable Unavailabl e Arslansennelson, Ivan Olivera MD Unavailable Unavailabl e Weisennelson, Ivan Olivera MD Unavailable Unavailabl e Weisennelson, Ivan Olivera MD Unavailable Unavailabl e Weisennelson, Ivan Olivera MD Unavailable Unavailabl e Weisennelson, Ivan Olivera MD Unavailable Unavailabl e Weisennelson, Ivan Olivera MD Unavailable Unavailabl e Weisennelson, Ivan Olivera MD Unavailable Unavailabl e Weisenthal, Ivan Olivera MD Unavailable Unavailabl e Weisenthal, Ivan Olivera MD Unavailable Unavailabl e Weisenthal, Ivan Olivera MD Unavailable Unavailabl e Weisenthal, Ivan Olivera MD Unavailable Unavailabl e Weisenthal, Ivan Olivera MD Unavailable Unavailabl e Weisenthal, Ivan Olivera MD Unavailable Unavailabl e Weisenthal, Ivan Olivera MD Unavailable Unavailabl e Weisenthal, Ivan Olivera MD Unavailable Unavailabl e Weisenthal, Ivan Olivera MD Unavailable Unavailabl e Weisennelson, Ivan Olivera MD Unavailable Unavailabl e Weisenthal, Ivan Olivera MD Unavailable Unavailabl e Weisenthal, Ivan Olivera MD Unavailable Unavailabl e Weisenthal, Ivan Olivera MD Unavailable Unavailabl e Weisenthal, Ivan Olivera MD Unavailable Unavailabl e Weisenthal, Ivan Olivera MD Unavailable Unavailabl e Arslansennelson, Ivan Olivera MD Unavailable Unavailabl e Arslansennelson, Ivan Olivera MD Unavailable Unavailabl e Weisenthal, Ivan Olivera MD Unavailable Unavailabl e Weisennelson, Ivan Olivera MD Unavailable Unavailabl e Weisennelson, Ivan Olivera MD Unavailable Unavailabl e Arslansennelson, Ivan Olivera MD Unavailable Unavailabl e Arslansennelson, Ivan Olivera MD Unavailable Unavailabl e Weisennelson, Ivan Olivera MD Unavailable Unavailabl e Weisennelson, Ivan Olivera MD Unavailable Unavailabl e Weisennelson, Ivan Olivera MD Unavailable Unavailabl e Weisennelson, Ivan Olivera MD Unavailable Unavailabl e Weisennelson, Ivan Olivera MD Unavailable Unavailabl e Arslansennelson, Ivan Olivera MD Unavailable Unavailabl John Fitzgerald Unavailable Unavailable Weisennelson, Ivan Olivera MD Unavailable Unavailabl e Weisennelson, Ivan Olivera MD Unavailable Unavailabl e Arslansennelson, Ivan Olivera MD Unavailable Unavailabl e Arslansennelson, Ivan Olivera MD Unavailable Unavailabl e Arslansennelson, Ivan Olivera MD Unavailable Unavailabl e Arslansennelson, Ivan Olivera MD Unavailable Unavailabl e Arslansennelson, Iavn Olivera MD Unavailable Unavailabl e Weisennelson, Ivan Olivera MD Unavailable Unavailabl e Weisenthal, Ivan Olivera MD Unavailable Unavailabl e Weisenthal, Ivan Olivera MD Unavailable Unavailabl e Weisenthal, Ivan Olivera MD Unavailable Unavailabl e Weisennelson, Ivan Olivera MD Unavailable Unavailabl e Weisenthal, Ivan Olivera MD Unavailable Unavailabl e Weisenthal, Ivan Olivera MD Unavailable Unavailabl e Weisenthal, Ivan Olivera MD Unavailable Unavailabl e Weisenthal, Ivan Olivera MD Unavailable Unavailabl e Weisenthal, Ivan Olivera MD Unavailable Unavailabl e Weisenthal, Ivan Olivera MD Unavailable Unavailabl e Weisenthal, Ivan Olivera MD Unavailable Unavailabl e Weisenthal, Ivan Olivera MD Unavailable Unavailabl e Weisenthal, Ivan Olivera MD Unavailable Unavailabl e Weisenthal, Ivan Olivera MD Unavailable Unavailabl e Weisenthal, Ivan Olivera MD Unavailable Unavailabl e Weisenthal, Ivan Olivera MD Unavailable Unavailabl e Weisenthal, Ivan Olivera MD Unavailable Unavailabl e Weisenthal, Ivan Olivera MD Unavailable Unavailabl e Weisenthal, Ivan Olivera MD Unavailable Unavailabl e Weisenthal, Ivan Olivera MD Unavailable Unavailabl e Weisenthal, Ivan Olivera MD Unavailable Unavailabl e Weisenthal, Ivan Olivera MD Unavailable Unavailabl e Weisenthal, Ivan Olivera MD Unavailable Unavailabl e Weisenthal, Ivan Olivera MD Unavailable Unavailabl e Weisenthal, Ivan Olivera MD Unavailable Unavailabl e Weisenthal, Ivan Olivera MD Unavailable Unavailabl e Weisenthal, Ivan Olivera MD Unavailable Unavailabl e Weisenthal, Ivan Olivera MD Unavailable Unavailabl e Weisenthal, Ivan Olivera MD Unavailable Unavailabl e Weisennelson, Ivan Olivera MD Unavailable Unavailabl e Arslansennelson, Ivan Olivera MD Unavailable Unavailabl e Weisenthal, Ivan Olivera MD Unavailable Unavailabl e Weisenthal, Ivan Olivera MD Unavailable Unavailabl e Weisenthal, Ivan Olviera MD Unavailable Unavailabl e Weisenthal, Ivan Olivera MD Unavailable Unavailabl e Weisenthal, Ivan Olivera MD Unavailable Unavailabl e Weisennelson, Ivan Olivera MD Unavailable Unavailabl e Weisennelson, Ivan Olivera MD Unavailable Unavailabl e Weisenthal, Ivan Olivera MD Unavailable Unavailabl e Weisennelson, Ivan Olivera MD Unavailable Unavailabl e Weisennelson, Ivan Olivera MD Unavailable Unavailabl e Arslansennelson, Ivan Olivera MD Unavailable Unavailabl e Arslansennelson, Ivan Olivera MD Unavailable Unavailabl e Weisennelson, Ivan Olivera MD Unavailable Unavailabl e Weisenthal, Ivan Olivera MD Unavailable Unavailabl e Weisennelson, Ivan Jarod MD Unavailable Unavailabl e Weisenthal, Ivan Olivera MD Unavailable Unavailabl e Weisenthal, Ivan Olivera MD Unavailable Unavailabl e Weisenthal, Ivan Olivera MD Unavailable Unavailabl e Weisenthal, Ivan Olivera MD Unavailable Unavailabl e Weisenthal, Ivan Olivera MD Unavailable Unavailabl e Weisenthal, Ivan Olivera MD Unavailable Unavailabl e Weisenthal, Ivan Olivera MD Unavailable Unavailabl e Weisenthal, Ivan Olivera MD Unavailable Unavailabl e Weisenthal, Ivan Olivera MD Unavailable Unavailabl e Weisenthal, Ivan Olivera MD Unavailable Unavailabl e Weisenthal, Ivan Olivera MD Unavailable Unavailabl e Weisenthal, Ivan Olivera MD Unavailable Unavailabl e Weisenthal, Ivan Olivera MD Unavailable Unavailabl e Weisenthal, Ivan Olivera MD Unavailable Unavailabl e Weisenthal, Ivan Olivera MD Unavailable Unavailabl e Re-disclosure Warning The records that you are about to access may contain information from federally-assisted alcohol or drug abuse programs. If such information is present, then the following federally mandated warning applies: This information has been disclosed to you from records protected by federal confidentiality rules (42 CFR part 2). The federal rules prohibit you from making any further disclosure of this information unless further disclosure is expressly permitted by the written consent of the person to whom it pertains or as otherwise permitted by 42 CFR part 2. A general authorization for the release of medical or other information is NOT sufficient for this purpose. The Federal rules restrict any use of the information to criminally investigate or prosecute any alcohol or drug abuse patient.The records that you are about to access may contain highly sensitive health information, the redisclosure of which is protected by Article 27-F of the [facility] Public Health law. If you continue you may have access to information: Regarding HIV / AIDS; Provided by facilities licensed or operated by the [facility] Office of Mental Health; or Provided by the [facility] Office for People With Developmental Disabilities. If such information is present, then the following [facility] mandated warning applies: This information has been disclosed to you from confidential records which are protected by state law. State law prohibits you from making any further disclosure of this information without the specific written consent of the person to whom it pertains, or as otherwise permitted by law. Any unauthorized further disclosure in violation of state law may result in a fine or care home sentence or both. A general authorization for the release of medical or other information is NOT sufficient authorization for further disc losure. Encounters Encounter Providers Location Date Indications Data Source(s ) Outpatient Referrer: JASMINKRISTINEMIRTHA NOWAK 12/24/2020 12:00:00 AM [facility] Outpatient Referrer: JASMINKRISTINEMIRTHA NOWAK 12/24/2020 12:00:00 AM [facility] Outpatient 07/12/2020 12:00:00 AM [facility] AM [facility]: [facility] 04/15/2020 10:45:00 AM EDT [facility]) Outpatient 10/29/2019 06:59:00 PM EST [facility] Radiology Imaging Outpatient 10/17/2019 11:00:00 AM EST [facility] Radiology Imaging Outpatient 10/05/2019 09:32:00 PM EST [facility] Radiology Imaging Outpatient Attender: Jarod Dueñas MD 08/22/2019 10:06 :33 AM EST Laboratory [place] [facility] Outpatient Attender: Jarod Dueñas MD 08/22/2019 10:06 :33 AM EST Laboratory [place] [facility] Medications Medication Brand Name Start Date Product Form Dose Route Admi nistrative Instructions Pharmacy Instructions Status Indications Reaction Description Data Source(s) Glycerin 2 MG/ML / hypromellose 2 MG/ML / Polyethylene Glycol 400 10 MG/ML Ophthalmic Solution Artificial Tears 04/14/2020 12:00:00 AM EDT OPHTHALMIC active [facility] Mineral Oil 0.03 MG/MG / Petrolatum 0.94 MG/MG Ophthalmic Ointment [Systane Nighttime] Systane Nighttime 07/19/2019 12:00:00 AM EDT OPHTHALM IC completed [facility]) Insurance Providers Payer name Policy type / Coverage type Policy ID Covered republican ID Covered republican's relationship to juarez Policy Juarez Plan Information [facility] [id number] [facility] [id number] U [id number] Self [id number] [facility] [id number] S [id number] [facility] [id number] [facility] [id number] [facility] [id number] Problems, Conditions, and Diagnoses Code Display Name Description Problem Type Effective Dates Data Source(s) [id number] Open-angle glaucoma - borderline Open-angle glau coma - borderline Problem 07/08/2020 12:00:00 AM EDT [facility] ([facility]) [id number] Nuclear senile cataract Nuclear senile cataract Proble m 10/30/2019 12:00:00 AM EST [facility]) Surgeries/Procedures Procedure Description Date Indications Data Source(s) OPH MEDICAL XM&EVAL INTERMEDIATE ESTAB PT 07/08/2020 12:00:00 AM EDT [facility]) OPH MEDICAL XM&EVAL INTERMEDIATE ESTAB PT 04/15/2020 12:00:00 AM EDT [facility]) OPH MEDICAL XM&EVAL INTERMEDIATE ESTAB PT 10/30/2019 12:00:00 AM EST [facility]) DETERMINATION REFRACTIVE STATE 10/30/2019 12:00:00 AM EST [facility]) Vital Signs ID Date Data Source UNK Name Value Range Interpretation Code Description Data Source(s) Intraocular pressure Left eye 27 mm[Hg] 27 mm[ Hg] [facility]) -CG, Applanation 11:43 Am Intraocular pressure Right eye 27 mm[Hg] 27 mm [Hg] [facility]) Intraocular pressure Left eye 23 mm[Hg] 23 mm[ Hg] [facility]) -Is, Applanation 11:04 Am Intraocular pressure Right eye 32 mm[Hg] 32 mm [Hg] [facility]) Intraocular pressure Left eye 26 mm[Hg] 26 mm[ Hg] [facility]) -Is, Applanation 02:57 PM Intraocular pressure Right eye 15 mm[Hg] 15 mm [Hg] [facility]) Intraocular pressure Left eye 20 mm[Hg] 20 mm[ Hg] [facility]) -DEVON, Applanation 02:24 PM
[2020-10-18] MEDS ORDERED: FERR325T81 PO (09:59)
[2020-10-18] MEDS ORDERED: NS 1,000 ML IV SCH (10:02)
--- OUTSIDE RECORDS SUMMARY | 2020-10-18 10:30 | CCD ---
Author Author [facility] Organization [facility] Address Unknown Phone Unavailable Care Team Providers Care Furnace Builder Name Role Phone Ivan Dueñas MD Unavailable [...] Arslansennelson, Ivan Olivera MD Unavailable Unavailabl e Weisenneslon, Ivan Olivera MD Unavailable Unavailabl e Weisennelson, [...] Olivera MD Unavailable Unavailabl e Weisennelson, Ivan Olivrea MD Unavailable Unavailabl e Weisennelson, Ivan Olivera [...] is protected by Article 27-F of the [facility] Public Health law. If you continue you may have access to information: Regarding HIV / AIDS; Provided by facilities licensed or operated by the [facility] Office of Mental Health; or Provided by the [facility] Office for People With Developmental Disabilities. If such information is present, then the following [facility] mandated warning applies: This information has been [...] law may result in a fine or shelter sentence or both. A general authorization for the release of medical or other information is NOT sufficient authorization for further disc losure. Encounters Encounter Providers Location Date Indications Data Source(s ) Outpatient Referrer: JASMINKRISTINEMIRTHA NOWAK 12/24/2020 12:00:00 AM [facility] Outpatient Referrer: JASMINKRISTINEMIRTHA NOWAK 12/24/2020 12:00:00 AM [facility] Outpatient 07/12/2020 12:00:00 AM [facility]00 AM EDT [facility] 04/15/2020 10:45:00 AM EDT [facility] Outpatient 10/29/2019 06:59:00 PM EST [facility] Radiology Imaging Outpatient 10/17/2019 11:00:00 AM EST [facility] Radiology Imaging Outpatient 10/05/2019 09:32:00 PM EST [facility] Radiology Imaging Outpatient Attender: Jarod Dueñas MD 08/22/2019 10:06 :33 AM EST Laboratory [place] [facility] Outpatient Attender: Jarod Dueñas MD 08/22/2019 10:06 :33 AM EST Laboratory [place] [facility] Medications Medication Brand Name Start Date [...] relationship to juarez Policy Juarez Plan Information [facility] [id number] [facility] [id number] U [id number] Self [id number] [facility] REG O [id number] S [id number] [facility] [id number] [facility] [id number] [facility] [id number] Problems, Conditions, and Diagnoses Code Display Name Description Problem Type Effective Dates Data Source(s) [id number] Open-angle glaucoma - borderline Open-angle glau coma - borderline Problem 07/08/2020 12:00:00 AM EDT [facility] ([facility]) [id number] Nuclear senile cataract Nuclear senile cataract Proble [...]
[2020-10-18 11:02] LABS: BASO # 0.1 10^3/uL (0.0-0.2); BASO % 0.7 % (0.0-1.0); EOS # 0.2 10^3/uL (0.0-0.5); EOS % 2.5 % (0.0-3.0); HEMATOCRIT 33.6 % (36.0-47.0); HEMOGLOBIN 11.1 g/dl (12.0-15.5); LYMPH # 2.2 10^3/uL (1.5-5.0); MEAN CORPUSCULAR HEMOGLOBIN 29.4 pg (27.0-33.0); MEAN CORPUSCULAR VOLUME 89.1 fl (80.0-96.0); MONO # 0.6 10^3/uL (0.0-0.8); MONO % 8.1 % (0.0-5.0); NEUTROPHILS # 4.5 10^3/uL (1.5-8.5); NEUTROPHILS % 59.3 % (36.0-66.0); PLATELET COUNT, AUTOMATED 254 10^3/uL (150-450); RED BLOOD COUNT 3.77 10^6/uL (4.00-5.40); WHITE BLOOD COUNT 7.5 10^3/uL (4.0-10.0)
[2020-10-18] MEDS ORDERED: ASCO500T PO (11:19)
[2020-10-18] MEDS ORDERED: PREN1CHW6 PO (11:19)
[2020-10-18] MEDS ORDERED: B-650TAB2 PO (11:19)
[2020-10-18 11:30] LABS: ALBUMIN 3.2 GM/DL (3.2-5.2); ALT/SGPT 18 U/L (12-78); BILIRUBIN,DIRECT < 0.1 MG/DL (0.0-0.2); BILIRUBIN,TOTAL 0.3 MG/DL (0.2-1.0); LIPASE 96 U/L (73-393); MAGNESIUM LEVEL 1.8 MG/DL (1.8-2.4); TOTAL PROTEIN 6.7 GM/DL (6.4-8.2)
[2020-10-18] MEDS ORDERED: PROMETHAZINE 25MG SUPP PR PRN (12:15)
--- OUTSIDE RECORDS SUMMARY | 2020-10-18 12:31 | CCD ---
Author Author [facility] Organization [facility] Address Unknown Phone Unavailable Care Team Providers Care Highway Engineering Technician Name Role Phone Ivan Dueñas MD Unavailable [...] Unavailabl Ivan Cramer MD Unavailable Unavailabl Ivan Craemr MD Unavailable Unavailabl Ivan Cramer MD Unavailable [...] Olivera MD Unavailable Unavailabl e Weisenthal, Ivan lOivera MD Unavailable Unavailabl e Weisenthal, Ivan Olivera [...] Weisennelson, Ivan Olivera MD Unavailable Unavailabl e Weisenenlson, Ivan Olivera MD Unavailable Unavailabl e Arslansennelson, [...] is protected by Article 27-F of the [facility] Public Health law. If you continue you may have access to information: Regarding HIV / AIDS; Provided by facilities licensed or operated by the [facility] Office of Mental Health; or Provided by the [facility] Office for People With Developmental Disabilities. If such information is present, then the following [facility] mandated warning applies: This information has [...] law may result in a fine or senior care sentence or both. A general authorization for the release of medical or other information is NOT sufficient authorization for further disc losure. Encounters Encounter Providers Location Date Indications Data Source(s ) Outpatient Referrer: JASMINKRISTINEMIRTHA NOWAK 12/24/2020 12:00:00 AM [facility] Outpatient Referrer: JASMINKRISTINEMIRTHA NOWAK 12/24/2020 12:00:00 AM [facility] Outpatient 07/12/2020 12:00:00 AM [facility] AM [facility]T [facility] 04/15/2020 10:45:00 AM EDT [facility] Outpatient 10/29/2019 06:59:00 PM EST [facility] Radiology Imaging Outpatient 10/17/2019 11:00:00 AM EST [facility]iology Imaging Outpatient 10/05/2019 09:32:00 PM EST [facility] Radiology Imaging Outpatient Attender: Jarod Dueñas MD 08/22/2019 10:06 :33 AM EST Laboratory [place] [facility] Outpatient Attender: Jarod Dueñas MD 08/22/2019 10:06 :33 AM EST Laboratory [place] [facility] Medications Medication Brand Name Start Date [...] type / Coverage type Policy ID Covered constitution party ID Covered constitution party's relationship to juarez Policy Juarez Plan Information [facility] [id number] [facility] [id number] U [id number] Self [id number] [facility] REG O [id number] S [id number] [facility] [id number] [facility] [id number] [facility] [id number] Problems, Conditions, and Diagnoses Code Display Name Description Problem Type Effective Dates Data Source(s) [id number] Open-angle glaucoma - borderline Open-angle glau coma - borderline Problem 07/08/2020 12:00:00 AM EDT [facility] ([facility]) [id number] Nuclear senile cataract Nuclear senile cataract Proble [...]
--- NOTE | 2020-10-18 12:43 | HPEPDOC ---
[facility] Medical History & Physical Date of Admission Oct 18, 2020 Date of Service: Oct 18, 2020 Attending Physician: Rubi Mondragon MD History and Physical CHIEF COMPLAINT: nausea/vomiting HISTORY OF PRESENT ILLNESS: 35 year-old female with past medical history of gestational kidney failure, PCOS, hyperemesis gravidarum who presented to [facility] emergency room sent in by from her nephrology office. Patient is currently 10 weeks ,and according to her drosser, the patient had a severely low magnesium level in the office at 0.5 with metabolic acidosis. He was concerned because she has been telling him that she has barely been able to keep anything down, she states that every time she eats a meal she throws it up several hours later. She tries to keep her fluids down as well but this is also a challenge for her. She had similar issues with her previous and, as per nephrology, this led to part of the reason as to why she lost that baby at 16 weeks. States she has i ncreased lethargy along with her nausea and nonbloody vomiting which can be up to 10 times a day. She also has occasional cramping today but no spotting of blood or vidya bleeding. She denies abdominal pain currently, diarrhea, chest pain, shortness of breath, fevers, chills, recent infections or illnesses. She states to have been compliant with taking Zofran up to 3 times a day prescribed by her drosser. She had last seen her obstetrics/director of donor relations this past week and there were no issues per her report. She had a recent ultrasound done in their office and there were no concerns. In the emergency room, vital signs were stable. Sodium 135, potassium 3.8, CO2 22. Magnesium 1.8. H&H slightly low but this is patient's baseline. She complained of some nausea with no vomiting. Nephrology requested observation admission to get better control of n/v, monitor electrolytes overnight. REVIEW OF SYSTEMS: Neg except for what is mentioned above PAST MEDICAL HISTORY: Hyperemesis gravidarum History of gestational kidney failure PCOS History of hospitalization for dehydration due to hyperemesis gravidarum PAST SURGICAL HISTORY: corneal transplants: 2 x L eye, 1 x R eye FAMILY HISTORY: Father: Healthy, alive Mother: Healthy, alive SOCIAL HISTORY: Denies smoking, alcohol or drug use. Lives locally. Turret Lathe Tender: Dr. Muñoz, director biologics: Dr. Sweeney ALLERGIES: Please see below. HOME MEDICATIONS: Please see below. PHYSICAL EXAMINATION: VS: please see below CONSTITUTIONAL: No acute distress, resting comfortably, AAO x 3 EYES: PERRLA, EOM intact HENT, MOUTH: Normocephalic, atraumatic, moist mucous membranes, NECK: SUPPLE, no JVD, no lymphadenopathy, no carotid bruit CV: Regular rate and rhythm, S1S2 normal, no murmurs/rubs/gallops RESPIRATORY: Clear to auscultation bilaterally, no rales/rhonchi/wheezes GI: BS positive in 4 quadrants, soft, nontender, no rebound or guarding, no organomegaly : Deferred MUSCULOSKELETAL: Normal ROM. No cyanosis, clubbing, swelling, joint deformity, extremity edema INTEGUMENTARY: Intact, no rashes, no lesions, no erythema NEUROLOGIC: Cranial Nerves II-XII are intact, no focal deficits PSYCHIATRIC: Mood and affect are normal LABORATORY DATA: Please see below IMAGING: None ASSESSMENT: 35 year-old female with past medical history of gestational kidney failure, PCOS, hyperemesis gravidarum who presented to [facility] emergency room sent in by from her nephrology office, admitted for better management of of n/v, monitor electrolytes overnight PLAN: Hyperemesis gravidarum -States vomits after every meal, cannot keep any food and very little fluids down -Currently appears to be well nourished, no dry mucosa -Spoke with Ms. Deni SPANN who states Dr. Sweeney will be coming in for consult on this patient -She recommended 8 mg zofran TID and phenergan ND 25 mg Q6HPRN for increased n/v. -She is on IVFs at 100 cc/hr, regular diet Hypomagnesemia, chronic -Mag 1.8, on daily supplement -Monitor closely, c/w daily supplement Hx of metabolic acidosis per nephrology -pCO2 22 on CMP in the hospital, o/p labs were not sent to us to review -F/u daily labs, IVFs at only 100 cc/hr PCOS -Stable Hx of gestational kidney failure with prior -Follows with Dr. Muñoz regularly -Will TB with him -Currently Cr is wnl and she is making good urine regularly DVt px -SCDs, ignacia, encourage ambulation DISPOSITION: Admitted under observation status. Plan is discharge home when medically improved. Vital Signs Vital Signs Date Time Temp Pulse Resp B/P (MAP) Pulse Ox O2 Delivery O2 Flow Rate FiO2 10/18/20 12:16 87 100 10/18/20 12:01 16 114/63 (80) 10/18/20 09:47 97.9 Room Air Laboratory Data Labs 24H Laboratory Tests 2 10/18/20 10:34: Immature Granulocyte % (Auto) 0.4, Neutrophils (%) (Auto) 59.3, Lymphocytes (%) (Auto) 29.0, Monocytes (%) (Auto) 8.1H, Eosinophils (%) (Auto) 2.5, Basophils (%) (Auto) 0.7, Neutrophils # (Auto) 4.5, Lymphocytes # (Auto) 2.2, Monocytes # (Auto) 0.6, Eosinophils # (Auto) 0.2, Basophils # (Auto) 0.1, Nucleated Red Blood Cells % (auto) 0.0, Magnesium Level 1.8, Total Bilirubin 0.3, Direct Bilirubin < 0.1, Aspartate Amino Transf (AST/SGOT) 45H, Alanine Aminotransferase (ALT/SGPT) 18, Alkaline Phosphatase 45, Total Protein 6.7, Albumin 3.2, Albumin/Globulin Ratio 0.9L, Lipase 96 10/18/20 10:51: POC Glucose (Misc Panel) 95, POC Sodium (Misc Panel) 135L, POC Potassium (Misc Panel) 3.8, POC Chloride (Misc Panel) 101, POC Total CO2 (Misc Panel) 22.0L, POC Blood Urea Nitrogen (Misc Panel 5L, POC Ionized Calcium (Misc Panel) 5.3, POC Creatinine (Misc Panel) 0.7, POC Hematocrit (Misc Panel) 34.0L CBC/BMP Laboratory Tests 10/18/20 10:34 Microbiology Microbiology 10/18/20 Respiratory Virus Panel (PCR) (YNES) - Final, Complete Home Medications Scheduled Ascorbic Acid (Ascorbic Acid) 500 Mg Tablet, 500 MG PO BID Ferrous Sulfate (Iron) 325 Mg Tablet, 325 MG PO DAILY Loteprednol Etabonate (Lotemax) 0.5% 5ML Drops.susp, 1 DROP OU DAILY Magnesium Chloride (Mag Delay) 64 Mg Tablet.dr, 64 MG PO TID Potassium Chloride (Potassium Chloride) 10 Meq Capsule.er, 10 MEQ PO BID Vit37/Iron/Folic Acid (Prenata Chewable Tablet) 1 Each Tab.chew, 1 CHW PO QHS Pyridoxine HCl (Vitamin B6) (Vitamin B-6) 50 Mg Tablet, 50 MG PO QHS Allergies Coded Allergies: No Known Allergies (Unverified , 10/02/19) A-FIB/CHADSVASC A-FIB History Current/History of A-Fib/PAF?: No Current PO Anticoag Therapy: No Age/Risk Factor Scoring CHADSVASC: CHADSVASC Response (Comments) Value Age Risk Factor Age < 65 years old 0 Gender Risk Factor Female 1 Hx of CHF No 0 Hx of HTN No 0 Hx of Stroke/TIA/or VTE No 0 Hx of Diabetes No 0 Hx of Vascular Disease No 0 Total 1 Treatment Treatment ordered: Other Other anticoagulant ordered: scd Rubi Mondragon MD Oct 18, 2020 12:43
[2020-10-18 12:59] LABS: PHOSPHORUS LEVEL 4.2 MG/DL (2.5-4.9)
--- NOTE | 2020-10-18 13:17 | IPNPDOC ---
Obstetrical Progress Note Date of Service Oct 18, 2020 Subjective 35 yo at 10w4d with JOAO of 12 MAY 2021 was sent to hospital by camera engineer for hypomagnesemia for overnight admission due to hyperemesis. Was contacted by Dr. Mondragon to provider OB consult for hyperemesis. Discussed with Dr. Mondragon for plan to use IV zofran 8 mg Q8H ATC adn for breakthrough nausea, to use Phenergan suppositories 25 mg Q6H PRN. Also will order for viability US t o assess well being. Discussed patient status and plan with Dr. Sweeney who agrees with this plan. Objective Vital Signs Date Time Temp Pulse Resp B/P (MAP) Pulse Ox O2 Delivery O2 Flow Rate FiO2 10/18/20 12:16 87 100 10/18/20 12:01 16 114/63 (80) 10/18/20 09:47 97.9 Room Air Physical exam: Deferred Assessment and Plan Age: 35 : 3 Term: 0 Pre-term: 0 Abortions: 2 Livin EGA at Admission: 10 (+4) Weeks & Days 10w4d Additional Comments Will provide reconsultation if requested, as clinically appropriate. BRENDA MANCERA CNM Oct 18, 2020 13:17
[2020-10-18 13:39] VITALS: BP 127/76
[2020-10-18] MEDS: NS 1,000 ML IV SCH (13:43)
[2020-10-18] MEDS: ONDANSETRON 4MG/2ML VIAL IV SCH ×2 (14:04→20:47)
--- NOTE | 2020-10-18 14:08 | REP ---
INDICATION: Viability, would like TV if unable to obtain TA. COMPARISON: Comparison obstetric sonography 09/09/2020.. TECHNIQUE: Transabdominal obstetric scanning. FINDINGS: Scanning demonstrates a single living intrauterine gestation in a free-floating lie. The crown-rump length is 38 mm. This corresponds with a 10 week 5 day gestational age estimate. heart rate is recorded at 161 beats per minute. There is a 2.3 cm cyst in the left ovary consistent with corpus luteum. No complication is seen. IMPRESSION: Viable single intrauterine gestation at 10 weeks 5 days by crown-rump length. JOAO by sonography 11 May 2021. <Electronically signed by Oskar Ambriz > 10/18/20 [id number]
[2020-10-18] MEDS ORDERED: RAMELTEON 8 MG TAB (ROZEREM) PO ONE (20:30)
[2020-10-18] MEDS: POTASSIUM CHLORIDE 10 MEQ SR TABLET PO SCH (20:47)
[2020-10-18] MEDS: ASCORBIC ACID 500 MG TAB PO SCH (20:47)
[2020-10-18] MEDS ORDERED: PRENATAL VITAMINS CHEWABLE TABLET PO SCH (21:00)
[2020-10-18] MEDS ORDERED: PYRIDOXINE 50 MG TAB PO SCH (21:00)
[2020-10-18 22:00] VITALS: BP 127/74
[2020-10-19] MEDS: NS 1,000 ML IV SCH ×2 (00:23→08:15)
[2020-10-19] MEDS: ONDANSETRON 4MG/2ML VIAL IV SCH (04:56)
[2020-10-19 06:00] VITALS: BP 125/77
[2020-10-19 06:58] LABS: HEMATOCRIT 30.7 % (36.0-47.0); HEMOGLOBIN 10.1 g/dl (12.0-15.5); MEAN CORPUSCULAR HEMOGLOBIN 29.8 pg (27.0-33.0); MEAN CORPUSCULAR HGB CONC 32.9 g/dl (32.0-36.5); MEAN CORPUSCULAR VOLUME 90.6 fl (80.0-96.0); PLATELET COUNT, AUTOMATED 231 10^3/uL (150-450); RED BLOOD COUNT 3.39 10^6/uL (4.00-5.40); WHITE BLOOD COUNT 6.3 10^3/uL (4.0-10.0)
[2020-10-19 07:25] LABS: ALBUMIN 2.8 GM/DL (3.2-5.2); ALT/SGPT 15 U/L (12-78); BILIRUBIN,TOTAL 0.2 MG/DL (0.2-1.0); BLOOD UREA NITROGEN 6 MG/DL (7-18); CALCIUM LEVEL 8.9 MG/DL (8.5-10.1); CARBON DIOXIDE LEVEL 22 MEQ/L (21-32); CHLORIDE LEVEL 107 MEQ/L (98-107); GLOMERULAR FILTRATION RATE > 60.0 (>60); GLUCOSE, FASTING 88 MG/DL (70-100); MAGNESIUM LEVEL 1.4 MG/DL (1.8-2.4); PHOSPHORUS LEVEL 4.4 MG/DL (2.5-4.9); SODIUM LEVEL 140 MEQ/L (136-145); TOTAL PROTEIN 5.7 GM/DL (6.4-8.2)
[2020-10-19] MEDS ORDERED: MAG400TA PO ×2 (08:42→08:44)
[2020-10-19] MEDS ORDERED: Promethazine Suppository PR (08:42)
[2020-10-19] MEDS ORDERED: ZOFR4TAB16 PO (08:42)
[2020-10-19] MEDS ORDERED: FERROUS SULFATE 325MG TAB PO SCH (09:00)
[2020-10-19] MEDS ORDERED: MAGNESIUM OXIDE 400 MG TAB (MAG-OX) PO ONE (09:00)
[2020-10-19] MEDS: ASCORBIC ACID 500 MG TAB PO SCH (09:13)
[2020-10-19] MEDS: POTASSIUM CHLORIDE 10 MEQ SR TABLET PO SCH (09:13)
[2020-10-19] MEDS ORDERED: MIRA3350 PO (11:12)
--- NOTE | 2020-10-19 20:09 | DS.PDOC ---
Discharge Summary General Date of Admission Oct 18, 2020 at 09:47 Date of Discharge 10/19/20 Attending Physician: Rubi Mondragon MD Discharge Summary HISTORY OF PRESENT ILLNESS: 35 year-old female with past medical history of gestational kidney failure, PCOS, hyperemesis gravidarum who presented to [facility] emergency room sent in by from her nephrology office. Patient is currently 10 weeks ,and according to her failure analysis engineer, the patient had a severely low magnesium level in the office at 0.5 with metabolic acidosis. He was concerned because she has been telling him that she has barely been able to keep anything down, she states that every time she eats a meal she throws it up several hours later. She tries to keep her fluids down as well but this is also a challenge for her. She had similar issues with her previous and, as per nephrology, this led to p art of the reason as to why she lost that baby at 16 weeks. States she has increased lethargy along with her nausea and nonbloody vomiting which can be up to 10 times a day. She also has occasional cramping today but no spotting of blood or vidya bleeding. She denies abdominal pain currently, diarrhea, chest pain, shortness of breath, fevers, chills, recent infections or illnesses. She states to have been compliant with taking Zofran up to 3 times a day prescribed by her failure analysis engineer. She had last seen her obstetrics/furniture mover this past week and there were no issues per her report. She had a recent ultrasound done in their office and there were no concerns. In the emergency room, vital signs were stable. Sodium 135, potassium 3.8, CO2 22. Magnesium 1.8. H&H slightly low but this is patient's baseline. She complained of some nausea with no vomiting. Nephrology requested observation ad mission to get better control of n/v, monitor electrolytes overnight. HOSPITAL COURSE: Patient was continued on IV fluids over the evening. According to nursing staff and patient she had several episodes of nausea and vomiting over the evening. insole cementer on 10/19/2020 the patient's labs showed magnesium 1.4, improved acidosis. Nephrology was updated. The decision was made to discharge home to follow-up with both obstetrics/gynecology and nephrology in 1 .week. Magnesium will be switched to magnesium oxide 800 mg by mouth twice a day instead of delay release. Continue with other supplements from her prior home regimen. Ultrasound done this hospitalization showed a viable 10 week gestation. Will also be discharged home with Zofran 8 mg by mouth 3 times a day. Her OB will be prescribing per rectal Phenergan.. Her OB clinic was updated on her discharge. At the time of discharge the patient had no acute complaints. PAST MEDICAL HISTORY: Hyperemesis gravidarum History of gestational kidney failure PCOS History of hospitalization for dehydration due to hyperemesis gravidarum PAST SURGICAL HISTORY: corneal transplants: 2 x L eye, 1 x R eye FAMILY HISTORY: Father: Healthy, alive Mother: Healthy, alive SOCIAL HISTORY: Denies smoking, alcohol or drug use. Lives locally. Associate Technician: Dr. Muñoz, circle cutting saw operator: Dr. Sweeney ALLERGIES: Please see below. HOME MEDICATIONS: Please see below. PHYSICAL EXAMINATION: VS: please see below CONSTITUTIONAL: No acute distress, resting comfortably, AAO x 3 EYES: PERRLA, EOM intact HENT, MOUTH: Normocephalic, atraumatic, moist mucous membranes, NECK: SUPPLE, no JVD, no lymphadenopathy, no carotid bruit CV: Regular rate and rhythm, S1S2 normal, no murmurs/rubs/gallops RESPIRATORY: Clear to auscultation bilaterally, no rales/rhonchi/wheezes GI: BS positive in 4 quadrants, soft, nontender, no rebound or guarding, no organomegaly : Deferred MUSCULOSKELETAL: Normal ROM. No cyanosis, clubbing, swelling, joint deformity, extremity edema INTEGUMENTARY: Intact, no rashes, no lesions, no erythema NEUROLOGIC: Cranial Nerves II-XII are intact, no focal deficits PSYCHIATRIC: Mood and affect are normal LABORATORY DATA: Please see below IMAGING: None ASSESSMENT: 35 year-old female with past medical history of gestational kidney failure, PCOS, hyperemesis gravidarum who presented to [facility] emergency room sent in by from her nephrology office, admitted for better management of of n/v, monitor electrolytes overnight PLAN: Hyperemesis gravidarum -Nausea with some vomiting overnight, comfortable this AM -Currently appears to be well nourished, no dry mucosa -Spoke with covering bulb assembler for pin pusher practice and updated her on discharge today -She is to continue with 8 mg zofran TID and phenergan MS 25 mg Q6HPRN for increased n/v. -She has f/u with pin pusher and nephrology in the next several weeks. She states she does not wish to "bug" anyone with her symptoms which is why she does not call her pin pusher office a lot about this issue BUT she is encouraged to call if she has persistent n/v with her history. Hypomagnesemia, chronic -Mag 1.4 -Switched to magnesium oxide 800 mg PO BID -F/u with nephrology o/p Hx of metabolic acidosis per nephrology -pCO2 wnl today -F/u labs regularly with nephrology o/p PCOS -Stable Hx of gestational kidney failure with prior -Follows with Dr. Muñoz regularly -Cr wnl DISPOSITION: Discharged home today in improved condition with f/u with nephrol kasey in 1 week and updated pin pusher. TIME SPENT ON DISCHARGE: Greater than 30 minutes. Vital Signs/I&Os Vital Signs Date Time Temp Pulse Resp B/P (MAP) Pulse Ox O2 Delivery O2 Flow Rate FiO2 10/19/20 06:00 98.2 79 18 125/77 (93) 99 Room Air I&O- Last 24 Hours up to 6 AM 10/19/20 06:00 Intake Total 4110 ml Output Total 0 ml Balance 4110 ml Laboratory Data Labs 24H Laboratory Tests 2 10/19/20 06:15: Nucleated Red Blood Cells % (auto) 0.0, Anion Gap 11, Glomerular Filtration Rate > 60.0, Calcium Level 8.9, Phosphorus Level 4.4, Magnesium Level 1.4L, Total Bilirubin 0.2, Aspartate Amino Transf (AST/SGOT) 7, Alanine Aminotransferase (ALT/SGPT) 15, Alkaline Phosphatase 43L, Total Protein 5.7L, Albumin 2.8L, Albumin/Globulin Ratio 1.0L CBC/BMP Laboratory Tests 10/19/20 06:15 Microbiology Microbiology 10/18/20 Respiratory Virus Panel (PCR) (YNES) - Final, Complete Discharge Medications Scheduled Ascorbic Acid (Ascorbic Acid) 500 Mg Tablet, 500 MG PO BID, (Reported) Ferrous Sulfate (Iron) 325 Mg Tablet, 325 MG PO DAILY, (Reported) Loteprednol Etabonate (Lotemax) 0.5% 5ML Drops.susp, 1 DROP OU DAILY, (Reported) Magnesium Oxide (Magnesium Oxide) 400 Mg Tablet, 800 MG PO BID Ondansetron HCl (Zofran) 4 Mg Tablet, 8 MG PO TID Potassium Chloride (Potassium Chloride) 10 Meq Capsule.er, 10 MEQ PO BID, (Reported) Vit37/Iron/Folic Acid (Prenata Chewable Tablet) 1 Each Tab.chew, 1 CHW PO QHS, (Reported) Pyridoxine HCl (Vitamin B6) (Vitamin B-6) 50 Mg Tablet, 50 MG PO QHS, (Reported) Scheduled PRN Polyethylene Glycol 3350 (Miralax) 119 Gm Powder, 17 GM PO DAILY PRN for CONSTIPATION dilute in 8 ounces of water or juice Allergies Coded Allergies: No Known Allergies (Unverified , 10/02/19) Rubi Mondragon MD Oct 19, 2020 20:09
== END 2020-10-19 12:12 | disposition home or self-care (01) ==
LOC: M ED 09:46 → M ED INP 09:47 → M MSPAV 13:38
PROVIDERS: ADMIT Internal Medicine; ATTEND Internal Medicine
DX: O21.1 Hyperemesis gravidarum with metabolic disturbance (principal); O99.281 Endocrine, nutritional and metabolic diseases complicating pregnancy, first trimester; E83.42 Hypomagnesemia; Z3A.10 10 weeks gestation of pregnancy; Z79.899 Other long term (current) drug therapy
CPT/HCPCS: 36415; 76801; 80047; 80053; 80076; 83605; 83690; 83735; 84100; 85025; 85027; 87486; 87581; 87633; 87798; 93041; 96360; 99285; J2405

== ENCOUNTER 2020-11-10 15:07 | Emergency (ER) | payer OTHER ==
[~2020-11-10] VITALS: Ht 154.9 cm; Wt 99.1 kg
[~2020-11-10 15:07] MED LIST changes: +ASCO500T PO; +B-650TAB2 PO; +FERR325T81 PO; +MAGN400T35 PO; +MIRA3350 PO; +PREN1CHW6 PO; +Promethazine Suppository PR; +ZOFR4TAB16 PO
--- OUTSIDE RECORDS SUMMARY | 2020-11-10 15:12 | CCD ---
Author Author [facility] Organization [facility] Address Unknown Phone Unavailable Care Team Providers Care Transmission Engineer Name Role Phone Ivan Dueñas MD Unavailable [...] Unavailabl Ivan Cramer MD Unavailable Unavailabl e Weisenthal, Ivan Olivera [...] Ivan Olivera MD Unavailable Unavailabl e Weisenthal, vIan Olivera MD Unavailable Unavailabl e Weisenthal, Ivan [...] e Weisenthal, Ivan Olivera MD Unavailable Unavailabl John Fitzgerald Unavailable Unavailable Re-disclosure Warning The records that you are [...] 27-F of the [facility] Public Health law. If you continue you may have access to information: Regarding HIV / AIDS; Provided by facilities licensed or operated by the [facility] Office of Mental Health; or Provided by the [facility] Office for People With Developmental Disabilities. If such information is present, then the following [facility] mandated warning applies: This information has [...] law may result in a fine or intermediate sentence or both. A general authorization for the release of medical or other information is NOT sufficient authorization for further disc losure. Encounters Encounter Providers Location Date Indications Data Source(s ) Outpatient Referrer: MATT NOWAK 12/24/2020 12:00:00 AM [facility] Outpatient Referrer: MATT NOWAK 12/24/2020 12:00:00 AM [facility] Outpatient 07/12/2020 12:00:00 AM [facility] Office Visit Attender: Jarod Lanier 1 10:45:00 AM EDT [facility] ([facility]) Office Visit Attender: Jarod Lanier 0 04/15/2020 10:45:00 AM EDT [facility] ([facility]) Outpatient 10/29/2019 06:59:00 PM EST [facility] Outpatient 10/17/2019 11:00:00 AM EST [facility] Outpatient 10/05/2019 09:32:00 PM EST [facility] Radiology Imaging Medications Medication Brand Name Start Date Product [...] type / Coverage type Policy ID Covered democrat ID Covered democrat's relationship to juarez Policy Juarez Plan Information [facility] [id number] [facility] [id number] [facility] REG O [id number] S [id number] U [id number] Self [id number] [facility] [id number] 2 [id number] [facility] [id number] [facility] [id number] Problems, Conditions, and Diagnoses Code Display Name Description Problem Type Effective Dates Data Source(s) 627284127 Open-angle glaucoma - borderline Open-angle glau coma - borderline Problem 07/08/2020 12:00:00 AM EDT [facility] ([facility]) [id number] Nuclear senile cataract Nuclear senile cataract Proble m 10/30/2019 12:00:00 AM EST [facility] ([facility]) Surgeries/Procedures Procedure Description Date Indications Data Source(s) [facility] MEDICAL XM&EVAL INTERMEDIATE ESTAB PT 07/08/2020 12:00:00 AM EDT [facility] ([facility]) [facility] MEDICAL XM&EVAL INTERMEDIATE ESTAB PT 04/15/2020 12:00:00 AM EDT [facility] ([facility]) [facility] MEDICAL XM&EVAL INTERMEDIATE ESTAB PT 10/30/2019 12:00:00 AM EST [facility]) DETERMINATION REFRACTIVE STATE 10/30/2019 12:00:00 AM EST [facility]) Results ID Date Data Source [id number] 10/18/2020 10:34:00 AM EST [facility] Name Value Range Interpretation Code Description Data Gaye rce(s) Supporting Document(s) SARS-CoV-2 (COVID 19) NEGATIVE - SARS-CoV-2 (COVID19) [facility] This lab was ordered by [facility] a nd reported by [facility]. Procedure Vital Signs ID Date Data Source [id number] [...]
--- OUTSIDE RECORDS SUMMARY | 2020-11-10 16:04 | CCD ---
Author Author [facility] Organization [facility] Address Unknown Phone Unavailable Care Team Providers Care Stitch Bonding Machine Tender Helper Name Role Phone Ivan Dueñas MD Unavailable [...] is protected by Article 27-F of the [facility] Public Health law. If you continue you may have access to information: Regarding HIV / AIDS; Provided by facilities licensed or operated by the [facility] Office of Mental Health; or Provided by the [facility] Office for People With Developmental Disabilities. If such information is present, then the following [facility] mandated warning applies: This information has been [...] Outpatient Referrer: MATT NOWAK 12/24/2020 12:00:00 AM [facility] Outpatient Referrer: MATT NOWAK 12/24/2020 12:00:00 AM [facility] Outpatient 07/12/2020 12:00:00 AM [facility] Office Visit Attender: Jarod Lanier 1 10:45:00 AM EDT [facility] ([facility]) Office Visit Attender: Jarod Lanier 0 04/15/2020 10:45:00 AM EDT [facility]) Outpatient 10/29/2019 06:59:00 PM EST [facility] Outpatient 10/17/2019 11:00:00 AM EST [facility] Outpatient 10/05/2019 09:32:00 PM EST [facility] Radiology Imaging Medications Medication Brand Name Start [...] type / Coverage type Policy ID Covered green party ID Covered green party's relationship to juarez Policy Juarez Plan Information [facility] [id number] [email or web address] [id number] [facility] REG O [id number] S [id number] U [id number] Self [id number] [facility] [id number] 2 [id number] [facility] [id number] [facility] [[email or web address] [id number] Problems, Conditions, and Diagnoses Code Display Name Description Problem Type Effective Dates Data Source(s) [id number] Open-angle glaucoma - borderline Open-angle glau coma - borderline Problem 07/08/2020 12:00:00 AM EDT [facility] ([facility]) [id number] Nuclear senile cataract Nuclear senile cataract Proble m 10/30/2019 12:00:00 AM EST [facility] ([facility]) Surgeries/Procedures Procedure Description Date Indications Data Source(s) [facility] MEDICAL XM&EVAL INTERMEDIATE ESTAB PT 07/08/2020 12:00:00 AM EDT [facility] ([facility]) [facility] MEDICAL XM&EVAL INTERMEDIATE ESTAB PT 04/15/2020 12:00:00 AM EDT [facility] ([facility]) [facility] MEDICAL XM&EVAL INTERMEDIATE ESTAB PT 10/30/2019 12:00:00 AM EST [facility] ([facility]) DETERMINATION REFRACTIVE STATE 10/30/2019 12:00:00 AM EST [facility]) Results ID Date Data Source [id number] 10/18/2020 10:34:00 AM EST [facility] Name Value Range Interpretation Code Description Data Gaye rce(s) Supporting Document(s) SARS-CoV-2 (COVID 19) NEGATIVE - SARS-CoV-2 (COVID19) [facility] This lab was ordered by [facility] a nd reported by [facility]. Procedure Vital Signs ID Date Data Source [...]
[2020-11-10] MEDS ORDERED: NS 1,000 ML IV ONE (16:15)
[2020-11-10] MEDS ORDERED: METOCLOPRAMIDE INJ 10MG/2ML VIAL (J2765 PER 1) IV ONE (16:15)
[2020-11-10 16:43] LABS: BASO # 0.1 10^3/uL (0.0-0.2); BASO % 0.6 % (0.0-1.0); EOS # 0.3 10^3/uL (0.0-0.5); EOS % 3.4 % (0.0-3.0); HEMATOCRIT 36.2 % (36.0-47.0); HEMOGLOBIN 11.6 g/dl (12.0-15.5); LYMPH % 24.6 % (24.0-44.0); MEAN CORPUSCULAR HEMOGLOBIN 29.3 pg (27.0-33.0); MEAN CORPUSCULAR VOLUME 91.4 fl (80.0-96.0); MONO # 0.7 10^3/uL (0.0-0.8); MONO % 8.8 % (2.0-8.0); NEUTROPHILS # 5.1 10^3/uL (1.5-8.5); NEUTROPHILS % 61.9 % (36.0-66.0); PLATELET COUNT, AUTOMATED 269 10^3/uL (150-450); RED BLOOD COUNT 3.96 10^6/uL (4.00-5.40); WHITE BLOOD COUNT 8.3 10^3/uL (4.0-10.0)
[2020-11-10 16:54] LABS: APPEARANCE, URINE CLOUDY (CLEAR); BACTERIA, URINE AUTO NEGATIVE (NEGATIVE); BILIRUBIN, URINE AUTO NEGATIVE (NEGATIVE); BLOOD, URINE BLOOD NEGATIVE (NEGATIVE); COLOR, URINE YELLOW (YELLOW); GLUCOSE, URINE (UA) AUTO NEGATIVE (NEGATIVE); KETONE, URINE AUTO TRACE mg/dL (NEGATIVE); LEUKOCYTE ESTERASE, URINE AUTO NEGATIVE (NEGATIVE); MUCUS, URINE SMALL (NEGATIVE); NITRITE, URINE AUTO NEGATIVE (NEGATIVE); PROTEIN, URINE AUTO 1+ mg/dL (NEGATIVE); RBC, URINE AUTO 1 /HPF (0-3); SPECIFIC GRAVITY URINE AUTO 1.026 (1.002-1.035); SQUAMOUS EPITHELIAL CELL UR AU 5 /HPF (0-6); UROBILINOGEN, URINE AUTO 0.2 mg/dL (0.0-2.0); WBC, URINE AUTO 2 /HPF (0-3)
--- NOTE | 2020-11-10 17:13 | REP ---
INDICATION: R flank pain, hx CKD2, +preg. COMPARISON: 10/26/2018 TECHNIQUE: Standard renal sonography. FINDINGS: Right kidney measures 9.8 x 6 x 4.2 cm. Cortical thickness and echogenicity are normal. No hydronephrosis or hydroureter. I see no solid or cystic mass, stone or perinephric fluid. Left kidney is 10.1 x 4.5 x 5.8 cm. It also shows normal cortical thickness and echogenicity with no hydronephrosis, hydroureter, stone, cyst, solid mass or perinephric fluid. Limited evaluation of the bladder which measures only 4.9 x 2.9 x 1.9 cm no gross mass or wall thickening. No layering debris or stone. IMPRESSION: 1. No renal atrophy, hydronephrosis, cyst, solid mass or stone disease. Negative bilateral renal ultrasound. 2. Limited evaluation of the bladder, no gross abnormality. <Electronically signed by Brandan Cabrera > 11/10/20 [id number]
[2020-11-10] MEDS ORDERED: REGL10TA6 PO (18:08)
[2020-11-10 18:15] VITALS: BP 122/61
== END 2020-11-10 18:21 | disposition home or self-care (01) ==
LOC: M ED 15:07
DX: O99.891 Other specified diseases and conditions complicating pregnancy (principal); R11.2 Nausea with vomiting, unspecified; R10.9 Unspecified abdominal pain; O99.612 Diseases of the digestive system complicating pregnancy, second trimester; K21.9 Gastro-esophageal reflux disease without esophagitis; Z79.899 Other long term (current) drug therapy; Z3A.14 14 weeks gestation of pregnancy
CPT/HCPCS: 76775; 80047; 81001; 85025; 87086; 96361; 96374; 99284; J2765

== ENCOUNTER → 2021-01-03 | Outpatient (REF) | payer OTHER ==
[2021-01-03 18:53] LABS: PERCENT SATURATION 21.3 % (13.2-45.0)
== END ==
LOC: M LAB REF 17:06
PROVIDERS: ATTEND Internal Medicine Nephrology
DX: D50.9 Iron deficiency anemia, unspecified (principal)

== ENCOUNTER → 2021-02-24 | Outpatient (CLI) | payer OTHER ==
--- NOTE | 2021-02-24 21:05 | ECGEPIP ---
[facility] Test Date: 2021-02-24 Pat Name: CHAYITO OCONNELL Department: Room: - Gender: Female Business Solution Analyst: randi : 1985 Requested By: JESSICA Kenney Order Number: [id number] Reading MD: Neel Liu Measurements Intervals Maury Rate: 90 P: 44 OR: 148 QRS: 48 QRSD: 74 T: 21 QT: 338 QTc: 413 Interpretive Statements Sinus rhythm No prior Electronically Signed on 02-24-2021 21:05:02 EDT by Neel Liu
== END ==
LOC: M EKG 15:13
PROVIDERS: ATTEND Obstetrics & Gynecology
DX: O24.119 Pre-existing type 2 diabetes mellitus, in pregnancy, unspecified trimester (principal)

== ENCOUNTER 2021-02-28 09:07 | Outpatient (CLI) | payer OTHER ==
[~2021-02-28] VITALS: Ht 152.4 cm; Wt 100.0 kg
[~2021-02-28 09:07] MED LIST changes: +ALBUTEROL SULFATE 2.5 MG/0.5 ML INH NEB SOLN INH PRN; +EPINEPHrine INJ 1 MG/ML 1ML AMP IM PRN; +IRON SUCROSE 200 MG in NS 100 ML IV ONE; +IRON SUCROSE 25 MG in NS 25 ML IV ONE; +NS 1,000 ML IV SCH; +diphenhydrAMINE 25MG CAP PO ONE; +diphenhydrAMINE 50MG/ML VIAL (J1200) IV PRN; +methylPREDNISolone 125MG 2ML VIAL IV PRN
[2021-02-28 09:15] VITALS: BP 125/67
[2021-02-28] MEDS ORDERED: diphenhydrAMINE 50MG/ML VIAL (J1200) IV ONE (09:35)
[2021-02-28 11:00] VITALS: BP 113/65
[2021-02-28 12:02] VITALS: BP 120/68
[2021-02-28 13:00] VITALS: BP 133/71
== END 2021-02-28 13:00 | disposition home or self-care (01) ==
LOC: M INFU 09:07
PROVIDERS: ATTEND Internal Medicine Nephrology
DX: O99.012 Anemia complicating pregnancy, second trimester (principal); D50.9 Iron deficiency anemia, unspecified; Z3A.27 27 weeks gestation of pregnancy
CPT/HCPCS: 96361; 96365; 96366; J1200; J1756

== ENCOUNTER 2021-03-07 07:56 | Outpatient (CLI) | payer OTHER ==
[~2021-03-07] VITALS: Ht 152.4 cm; Wt 100.0 kg
[~2021-03-07 07:56] MED LIST changes: -IRON SUCROSE 200 MG in NS 100 ML IV ONE; +IRON SUCROSE 200 MG in NS 100 ML OVER 1 HR IV ONE; -IRON SUCROSE 25 MG in NS 25 ML IV ONE; -diphenhydrAMINE 25MG CAP PO ONE; +diphenhydrAMINE 50MG/ML VIAL (J1200) IV ONE
[2021-03-07 08:15] VITALS: BP 133/74
[2021-03-07 10:00] VITALS: BP 111/56
== END 2021-03-07 10:47 | disposition home or self-care (01) ==
LOC: M INFU 07:56
PROVIDERS: ATTEND Internal Medicine Nephrology
DX: O99.012 Anemia complicating pregnancy, second trimester (principal); D50.9 Iron deficiency anemia, unspecified; Z3A.27 27 weeks gestation of pregnancy
CPT/HCPCS: 96365; 96375; J1200; J1756

== ENCOUNTER → 2021-05-01 | Outpatient (REF) | payer OTHER ==
[~2021-05-01] MED LIST changes: -ALBUTEROL SULFATE 2.5 MG/0.5 ML INH NEB SOLN INH PRN; -EPINEPHrine INJ 1 MG/ML 1ML AMP IM PRN; -IRON SUCROSE 200 MG in NS 100 ML OVER 1 HR IV ONE; -NS 1,000 ML IV SCH; -diphenhydrAMINE 50MG/ML VIAL (J1200) IV ONE; -diphenhydrAMINE 50MG/ML VIAL (J1200) IV PRN; -methylPREDNISolone 125MG 2ML VIAL IV PRN
== END ==
LOC: M LAB REF 16:49
PROVIDERS: ATTEND Internal Medicine Nephrology
DX: E83.42 Hypomagnesemia (principal)

== ENCOUNTER 2021-05-05 14:11 | Inpatient (IN) | payer OTHER ==
[~2021-05-05] VITALS: Ht 152.4 cm; Wt 100.7 kg
[2021-05-05 14:33] VITALS: BP 121/63
[2021-05-05] MEDS ORDERED: METF500T13 PO (14:44)
[2021-05-05] MEDS ORDERED: NS 1,000 ML IV SCH (14:45)
[2021-05-05] MEDS ORDERED: CARBOPROST TROMETHAMINE 250 MCG/ML AMP IM PRN (14:45)
[2021-05-05] MEDS ORDERED: OXYTOCIN DRIP 30 UNITS in IV 1 EA IV PRN (14:45)
[2021-05-05] MEDS ORDERED: METHYLERGONOVINE MALEATE 0.2 MG/ML VIAL (J2210) IM PRN (14:45)
[2021-05-05] MEDS ORDERED: PENICILLIN G POTASSIUM IV 5 MU in D5W MINI-BAG PLUS 100 ML IV STA (14:45)
[2021-05-05] MEDS ORDERED: TRANEXAMIC ACID INJection 1,000 MG in NS 100 ML IV PRN (14:45)
[2021-05-05] MEDS ORDERED: NS 1,000 ML IV ONE (14:45)
[2021-05-05] MEDS ORDERED: INSULIN IV RATE CHANGE DOCUMENTATION ML/HR XX SCH (14:45)
[2021-05-05] MEDS ORDERED: INSULIN REGULAR IN 0.9 % NACL 100 UNIT in IV 1 EA IV SCH ×2 (14:45)
[2021-05-05] MEDS ORDERED: HOME MED LIST COMPLETE! XX SCH (14:45)
[2021-05-05] MEDS ORDERED: INSULANT SC (15:00)
[2021-05-05] MEDS: NS 1,000 ML IV SCH ×2 (16:10→22:45)
[2021-05-05 16:21] LABS: HEMATOCRIT 33.5 % (36.0-47.0); HEMOGLOBIN 11.1 g/dl (12.0-15.5); MEAN CORPUSCULAR HEMOGLOBIN 30.2 pg (27.0-33.0); MEAN CORPUSCULAR HGB CONC 33.1 g/dl (32.0-36.5); MEAN CORPUSCULAR VOLUME 91.3 fl (80.0-96.0); PLATELET COUNT, AUTOMATED 173 10^3/uL (150-450); RED BLOOD COUNT 3.67 10^6/uL (4.00-5.40); WHITE BLOOD COUNT 5.9 10^3/uL (4.0-10.0)
--- NOTE | 2021-05-05 16:29 | HPEPDOC ---
Obstetrical History & Physical General Date of Admission May 05, 2021 at 14:11 History of Present Illness 35 yo at 39w0d with JOAO of 12 MAY 2021 presents to L&D for IOL for pre-g estational DM diagnosed in the first trimester. She has supportive family at the bedside. She denies contractions, leaking of fluid, vaginal bleeding, and reports positive movement. Interval History: Left complex ovarian cyst 2.2 cm Hx of IUFD at 16 wks with gastroschisis Hx of left ectopic CKD stage 2 Hx of retained placenta Pre-gestational DM PCOS Anemia Hx of corneal transplant Hypomagnesemia Iron deficiency anemia Hypokalemia Anxiety Morbid obesity Chief Complaint: Induction of labor (for pre-gestational DM) Information Provided By: Patient Age: 35 : 3 Term: 0 Pre-term: 0 Abortions: 2 Livin Care Care: Good Care Dating Final EDC: May 12, 2021 Final EDC by: LMP, 1st trimester (US) EGA at Admission: 39.0 Antepartum Course Height (inches): 61 Pre- weight (lbs.): 217 Admission Weight (lbs.): 222 Change in Weight (lbs.): 5 Past Medical History Past Obstetrical History : Past Obstetrical History: Multigravida Date of Delivery: Nov 05, 2018 Gestation: 16 Type of Delivery: Spontaneous Vaginal Del. Complications: Yes (IUFD, gastroschisis) Past Medical History Medical History Left complex ovarian cyst 2.2 cm, Hx of IUFD at 16 wks with gastroschisis, Hx of left ectopic , CKD stage 2, Hx of retained placenta, Pre-gestational DM, PCOS, Anemia, Hx of corneal transplant, Hypomagnesemia, Iron deficiency anemia, Hypokalemia, Anxiety, Morbid obesity Surgical History: Breast reduction, Dilatation and Curettage, [place] teeth, Other (corneal transplant x3, lymph node excised from neck, Left salpingectomy) Family History Significant Family History: No pertinent family hx Social History Marital Status: Family situation: Spouse/partner home Psychosocial History: Anxiety * Smoker: non-smoker Alcohol: Denies Drugs: denies Abuse Violence Screening Have you been hit/kicked/slapp: No Have you been sexually assault: No Imunizations Tdap status: current Allergies Coded Allergies: No Known Allergies (Unverified , 05/05/21) Medications Scheduled Ascorbic Acid (Ascorbic Acid) 500 Mg Tablet, 500 MG PO BID Ferrous Sulfate (Iron) 325 Mg Tablet, 325 MG PO DAILY Insulin Glargine (Lantus) 100 Unit/1 Ml Vial, 7 UNITS SC QHS Loteprednol Etabonate (Lotemax) 0.5% 5ML Drops.susp, 1 DROP OU DAILY Magnesium Oxide (Magnesium Oxide) 400 Mg Tablet, 800 MG PO BID Metformin HCl (Metformin HCl) 500 Mg Tablet, 1 TAB PO BID Potassium Chloride (Potassium Chloride) 10 Meq Capsule.er, 10 MEQ PO BID Vit37/Iron/Folic Acid ([place] Chewable Tablet) 1 Each Tab.chew, 1 CHW PO QHS Physical Examination Physical Examination GENERAL: Alert and oriented times three. BREAST: . ABDOMEN: Gravid and non-tender to touch. FETUS: Is vertex (VTX) by sterile vaginal examination (SVE), fetus is vertex (VTX) by [place]. HEART RATE: Regular rate and rhythm. LUNGS: Clear to auscultation (CTA). EXTREMITIES: No edema. No clonus. Deep tendon reflexes (DTRs) + 2. Vital Signs/I&O Cervical exam: FT/30/-4 Laboratory Data 24H LABS Laboratory Tests 2 05/05/21 14:35: Serology Scanned Report Hepatitis B Testing Pertinent Laboratoy Data Blood Type: A+ RBC Antibody Screen: Negative HIV: Negative Hepatitis B: Negative Rapid Plasma Reagin: Nonreactive Rubella: Immune Varicella: Immune Chlamydia/Gonorrhea: Negative Group B Streptococcus: Positive Cystic Fibrosis: Negative Steroid Therapy Steroid Therapy: No Vaginal Examination Cervical Consistency: Medium Cervical Position: Posterior Presentation: Cephalic presentation Position: Vertex (occiput) Assessment Heart Rate (FHR): 135 Variability: Moderate Accelerations: Present Decelerations: None Tocometer Contractions: No Multi-drug resistant Organism: No history of MDRO Assessment/Plan Assessment IUP at 39w0d IOL for pre-gestational DM CKD stage 2 PCOS Anemia Anxiety Morbid obesity Plan Admit and orient. Auto Tester and consent. Diet: clear liquids. Group B Streptococcus (GBS) positive. Labs and intravenous (IV) per unit protocol. Counseled on Pitocin and induction of labor (IOL). Normal Saline (NS): Bolus 1000 mL, then at 125 mL/hr. Anticipate normal spontaneous delivery (). C-S as appropriate. Labor and Delivery Counseling Risks of vaginal delivery include but are not limited to: Bleeding, infection, injury to the vagina, pelvic structures, injury to baby, damage to the uterus, reactions to anesthesia, uterine rupture, risk of hysterectomy for life threatening bleeding, or . Medications used to induce or augment labor may increase your risk for infection, uterine tachysystole, uterine rupture, heart rate abnormalities, need for emergency delivery or possible hysterectomy, and hemorrhage. BRENDA MANCERA CNM May 05, 2021 14:52
[2021-05-05 16:30] VITALS: BP 113/61
[2021-05-05] MEDS: D5W/0.9% SODIUM CHLORIDE 1,000 ML IV SCH (16:39)
[2021-05-05] MEDS: miSOPROStol 50MCG 1/2 TABLET PO PRN ×2 (17:01→20:53)
[2021-05-05 17:12] LABS: ALT/SGPT 13 U/L (12-78); BILIRUBIN,TOTAL 0.4 MG/DL (0.2-1.0); BLOOD UREA NITROGEN 16 MG/DL (7-18); CALCIUM LEVEL 9.3 MG/DL (8.5-10.1); CARBON DIOXIDE LEVEL 21 MEQ/L (21-32); CHLORIDE LEVEL 108 MEQ/L (98-107); CREATININE FOR GFR 0.78 MG/DL (0.55-1.30); GLOMERULAR FILTRATION RATE > 60.0 (>60); GLUCOSE, FASTING 73 MG/DL (70-100); POTASSIUM SERUM 4.8 MEQ/L (3.5-5.1); SODIUM LEVEL 138 MEQ/L (136-145); TOTAL PROTEIN 6.5 GM/DL (6.4-8.2)
[2021-05-05] MEDS ORDERED: D5W/LR 1,000 ML IV SCH (17:20)
[2021-05-05 17:30] VITALS: BP 116/56
[2021-05-05 18:39] VITALS: BP 113/65
[2021-05-05] MEDS ORDERED: PENICILLIN G POTASSIUM IV 2.5 MU in IV 1 EA IV SCH (18:45)
[2021-05-05] MEDS ORDERED: **PENDING PCN ENTRY XX SCH (21:00)
[2021-05-05] MEDS ORDERED: diphenhydrAMINE 50MG CAP PO ONE (21:30)
[2021-05-05] MEDS ORDERED: BUTORPHANOL 2 MG/ML INJ (J0595) IV PRN (23:20)
[2021-05-05] MEDS ORDERED: PROMETHAZINE INJ 25 MG/ML VIAL (J2550) IV SCH (23:20)
[2021-05-05] MEDS ORDERED: PROMETHAZINE INJ 25 MG/ML VIAL (J2550) IV ONE (23:45)
[2021-05-06] VITALS (41 sets, daily range): BP systolic 98–205; BP diastolic 51–140
[2021-05-06] MEDS: D5W/0.9% SODIUM CHLORIDE 1,000 ML IV SCH ×2 (01:30→10:14)
[2021-05-06] MEDS ORDERED: FENTANYL 2MCG/ML ROPIVACAINE 0.2% IN 0.9% NACL 100ML IVBAG As Ordered ONE (03:02)
[2021-05-06] MEDS ORDERED: PENICILLIN G POTASSIUM IV 5 MU in D5W MINI-BAG PLUS 100 ML IV STA (04:27)
[2021-05-06] MEDS ORDERED: REFRIGERATOR IV KEYS XX PRN (05:50)
[2021-05-06] MEDS ORDERED: NALOXONE INJ 0.4MG/1ML VIAL (J2310 PER 1MG) IV PRN (05:50)
[2021-05-06] MEDS ORDERED: LACTATED RINGER'S 1000 ML IV PRN (05:50)
[2021-05-06] MEDS ORDERED: EPIDURAL COMMENT XX SCH (05:50)
[2021-05-06] MEDS ORDERED: EPIDURAL/PCA KEYS XX PRN (05:50)
[2021-05-06] MEDS ORDERED: ePHEDrine SULFATE 25 MG/5 ML(5MG/ML) SYRINGE IV PRN (05:50)
[2021-05-06] MEDS ORDERED: ONDANSETRON 4MG/2ML VIAL IV PRN (05:50)
[2021-05-06] MEDS ORDERED: diphenhydrAMINE 50MG/ML VIAL (J1200) IV PRN (05:50)
--- NOTE | 2021-05-06 06:04 | IPNPDOC ---
Obstetrical Progress Note Date of Service May 06, 2021 Subjective 35 yo at 39w1d with JOAO of 12 MAY 2021. Pt overall comfortable with epidural - reporting more pressure in rectum. Denies LOF, VB. +GFM Objective Vital Signs Date Time Temp Pulse Resp B/P (MAP) Pulse Ox O2 Delivery O2 Flow Rate FiO2 05/06/21 00:24 98.5 100 121/58 (79) 05/06/21 00:12 17 05/05/21 18:39 Room Air Assessment Heart Rate (FHR): 130 Variability: Moderate Accelerations: Positive Decelerations: None Heart Rate Tracing: Category I Tocometer Contractions: Yes Frequency: irregular, every 1-5 min. Sterile Vaginal Examination Dilation: 6 cm Effacement (%): 80% Station: -1 Cervical Consistency: Soft Postion/Presentation: Cephalic presentation Assessment and Plan Additional Comments Pt comfortable with epidural. Cat 1 tracing, SVE 6/80/-1. Membranes intact. Insulin drip protocol initiated, glucose well controlled. Pt very tired, will allow some rest prior to AROM. Anticipate vaginal delivery ROSELIA ESCOBAR M.D. May 06, 2021 06:04
[2021-05-06] MEDS: FENTANYL/ROPIVACAINE/NACL BAG 100 ML EPIDURAL SCH ×2 (06:14→11:37)
[2021-05-06] MEDS: NS 1,000 ML IV SCH ×2 (06:45→07:44)
[2021-05-06] MEDS: PENICILLIN G POTASSIUM IV 2.5 MU in IV 1 EA IV SCH ×2 (08:45→12:50)
--- NOTE | 2021-05-06 09:38 | IPNPDOC ---
Obstetrical Progress Note Date of Service May 06, 2021 Subjective 35 yo at 39w1d with JOAO of 12 MAY 2021 presents to L&D for IOL for pre- gestational DM. She is feeling well and reports that she has intermittent pelvic pressure. She has supportive family at the bedside. Objective Vital Signs Date Time Temp Pulse Resp B/P (MAP) Pulse Ox O2 Delivery O2 Flow Rate FiO2 05/06/21 06:36 81 104/51 (68) 05/06/21 00:24 98.5 05/06/21 00:12 17 05/05/21 18:39 Room Air Assessment Heart Rate (FHR): 135 Variability: Moderate Accelerations: Present Decelerations: None Tocometer Contractions: Yes (every 4 minutes) Frequency: regular Sterile Vaginal Examination Dilation: 8 cm (8-9 cm) Effacement (%): 100% Station: 0 (0 to +1) Cervical Consistency: Soft (with a bulgy bag of membranes) Cervical Position: Anterior Postion/Presentation: Cephalic presentation Assessment and Plan Age: 35 : 3 Term: 0 Pre-term: 0 Abortions: 2 Livin Weeks & Days 39w1d Status: Reassuring Group B Streptococcus: Positive Anticipate: Vaginal Delivery (Will continue to labor at this time) BRENDA MANCERA CNM May 06, 2021 09:32
[2021-05-06] MEDS ORDERED: OXYTOCIN DRIP 30 UNITS in IV 1 EA IV SCH (11:20)
--- NOTE | 2021-05-06 12:12 | IPNPDOC ---
Obstetrical Progress Note Date of Service May 06, 2021 Subjective 35 yo at 39w1d with JOAO of 12 MAY 2021 presents to L&D for IOL for pre- gestational DM. She is feeling well and reports that she has intermittent pelvic pressure. She has supportive family at the bedside. Objective Vital Signs Date Time Temp Pulse Resp B/P (MAP) Pulse Ox O2 Delivery O2 Flow Rate FiO2 05/06/21 06:36 81 104/51 (68) 05/06/21 00:24 98.5 05/06/21 00:12 17 05/05/21 18:39 Room Air Cervical exam: Anterior lip/100/+1 AROM for clear fluid Pitocin at 2 mu/min Assessment Heart Rate (FHR): 140 Variability: Moderate Accelerations: Present Decelerations: None Tocometer Contractions: Yes Frequency: irregular (every 4-6 minutes) Sterile Vaginal Examination Cervical Consistency: Soft Cervical Position: Anterior Postion/Presentation: Cephalic presentation (I have) Assessment and Plan Age: 35 : 3 Term: 0 Pre-term: 0 Abortions: 2 Livin Weeks & Days 39w1d Status: Reassuring Group B Streptococcus: Positive Anticipate: Vaginal Delivery BRENDA MANCERA CNM May 06, 2021 11:55
[2021-05-06] MEDS ORDERED: ACETAMINOPHEN TAB 650MG DOSE (2X325MG) PO PRN (16:20)
[2021-05-06] MEDS ORDERED: DOCUSATE SODIUM 100MG CAPSULE PO PRN (16:20)
[2021-05-06] MEDS ORDERED: IBUPROFEN 600MG TAB PO PRN (16:20)
[2021-05-06] MEDS: IBUPROFEN 800 MG TAB PO PRN (16:45)
--- NOTE | 2021-05-06 16:50 | DNPDOC ---
[facility] Delivery Note Delivery Note Date of the procedure: 06 MAY 2021 Preoperative diagnosis: 1. 35 y/o at 39w1d 2. Induction of labor for pre-gestational DM 3. GBS positive 4. A positive 5. Morbid obesity 6. Chronic kidney disease, Stage 2 7. Anxiety Postoperative diagnosis: 1. 35 y/o G3 now P1021 at 39w1d 2. Induction of labor for pre-gestational DM 3. GBS positive 4. A positive 5. Morbid obesity 6. Chronic kidney disease, Stage 2 7. Anxiety 8. Right periurethral laceration 9. Second degree perineal laceration Procedure: Delivering Provider: MARTHA Ying CNM, ZAC Mail Examiner Back-up: Dr. Amadou Portillo Anesthesia: Epidural EBL: 150 ml Specimens: None Findings: Live female weighing 6 lb 13 oz, 3090 grams with Apgars of 9 and 9 at 1 and 5 minutes respectively. Complications: Pre-gestational DM Details of the procedure: The patient presented for induction of labor for pre-gestational DM on metformin and insulin. Her cervical exam was closed and was then admitted to L&D. Labor progressed with Pitocin and membranes were ruptured artificially for clear fluid.. The patient progressed to fully dilated and entered the second stage of labor, at which point she began to push over an intact perineum. The head was then delivered. The nuchal cord was not noted. The rest of the was delivered. The infant was placed on maternal abdomen and the cord was doubly clamped and cut. Cord blood was not collected and a 3 vessel cord was noted. Manual exp loration of the uterus was not performed. Uterine tone was firm. Perineum was inspected and a right periurethral laceration and a second degree perineal laceration were found. These were repaired with 2-0 chromic. Cervical exam was normal. Rectal exam was not noted. Sponge, instrument, and needle counts were correct. The patient tolerated the procedure well and is stable in recovery. Note was written and electronically signed by: MARTHA Ying, MARIA INES, YANG-BRENDA LEVINE CNM May 06, 2021 16:50
[2021-05-06] MEDS: ACETAMINOPHEN 500 MG TAB PO PRN ×2 (17:38→23:26)
[2021-05-06] MEDS ORDERED: SLF 3 ML SYR IV PRN (18:15)
[2021-05-06] MEDS: SLF 3 ML SYR IV SCH (22:13)
[2021-05-07] MEDS: IBUPROFEN 800 MG TAB PO PRN ×2 (02:16→15:40)
[2021-05-07] MEDS: SLF 3 ML SYR IV SCH ×3 (05:58→22:22)
[2021-05-07 06:00] VITALS: BP 119/76
--- NOTE | 2021-05-07 06:56 | IPNPDOC ---
Progress Note Date of Service: May 07, 2021 Day#: 1 Progress Note SUBJECT: Lesley is 35 yo PPD1 S/P T 39WEEKS OF A Live female weighing 6 lb 13 oz, 3090 grams with Apgars of 9 and 9 at 1 and 5 minutes respectivelY. She has been ambulating, voiding spontaneously without issue and tolerating regular diet. Breast feeding without issue. Reports lochia is like a normal period. OBJECTIVE: VITAL SIGNS: Within normal limits, afebrile. Alert and oriented times three. NORMAL Work of breathing Heart rate: Regular rate and rhythm, Abdomen: Fundus firm at U-2. ASSESSMENT: Lesley is 35 yo PPD1 S/P T 39WEEKS OF A Live female infant weighing 6 lb 13 oz, 3090 grams with Apgars of 9 and 9 at 1 and 5 minutes respectivelY. Vitals within normal limits, afebrile, hemodynamically stable with no evidence of infection. PLAN: 1. Discharge to home tomorrow 2. Tylenol and Motrin for pain. 3. Encourage breast feeding and ambulation. 4.minipill for contraception for now 5. Routine PP visit in 6 weeks in clinic. 6. Discussed return precautions at length. VS, I&O, 24H, Fishbone Vital Signs/I&O Vital Signs Date Time Temp Pulse Resp B/P (MAP) Pulse Ox O2 Delivery O2 Flow Rate FiO2 05/06/21 18:00 98.9 73 18 166/79 (108) 100 Room Air I&O- Last 24 Hours up to 6 AM 05/07/21 06:00 Intake Total 1468.0 ml Output Total 1025 ml Balance 443.0 ml Laboratory Data 24H LABS Laboratory Tests 2 05/06/21 06:47: Bedside Glucose (Misc Panel) 89 05/06/21 07:54: Bedside Glucose (Misc Panel) 84 05/06/21 09:04: Bedside Glucose (Misc Panel) 83 05/06/21 10:07: Bedside Glucose (Misc Panel) 68L 05/06/21 11:05: Bedside Glucose (Misc Panel) 103 05/06/21 12:06: Bedside Glucose (Misc Panel) 79 05/06/21 13:01: Bedside Glucose (Misc Panel) 88 05/06/21 14:04: Bedside Glucose (Misc Panel) 95 MALATHI REINA MD May 07, 2021 5:54 am
[2021-05-07] MEDS: PRENATAL VITAMINS CHEWABLE TABLET PO SCH (08:26)
[2021-05-07] MEDS: ACETAMINOPHEN 500 MG TAB PO PRN (08:59)
[2021-05-07 18:02] VITALS: BP 132/74
[2021-05-08] MEDS: IBUPROFEN 800 MG TAB PO PRN (05:09)
[2021-05-08] MEDS: SLF 3 ML SYR IV SCH (05:11)
[2021-05-08 06:23] VITALS: BP 121/77
[2021-05-08] MEDS ORDERED: IBUP-1022 PO (06:49)
[2021-05-08] MEDS ORDERED: COLA100C5 PO (06:49)
[2021-05-08] MEDS: PRENATAL VITAMINS CHEWABLE TABLET PO SCH (07:57)
[2021-05-08] MEDS: ACETAMINOPHEN 500 MG TAB PO PRN (08:11)
--- NOTE | 2021-05-08 10:36 | DSES ---
DISCHARGE SUMMARY DATE OF ADMISSION: 05/05/2021 DATE OF DISCHARGE: 05/08/2021 BRIEF HISTORY: A 35-year-old 3, now para 1, admitted for induction of labor for pre-gestational diabetes. Her risk factors include she had an IUFD at 16 weeks, left ectopic , PCOS, morbidly obese, GBS positive, chronic kidney disease stage 2. She had an epidural in place, delivered a live female ; 6 pounds 13 ounces (3090 grams), Apgars of 9 and 9 at one and five minutes respectively. LAB DATA: Admitting hemoglobin 11.1, hematocrit 33.5 and platelets 173,000. PHYSICAL EXAMINATION: Vital signs on discharge: Blood pressure 121/77, respirations 18, pulse 76, temperature 97.8. The rest of the examination is unremarkable. Normocephalic, atraumatic. Neck full range of motion. Pupils equal and reactive to light. Distal pulses are symmetric. No evidence of DVT, PE or superficial phlebitis. Chest is clear bilaterally to bases. No wheezes or rhonchi. No CVA tenderness. Abdomen is soft, four quadrant bowel sounds are noted. Uterus is two below. Lochia is moderate. No rashes, lesions or pruritus. No arthralgia or myalgia. No complaint of joint pain. No complaint of cough, wheeze, shortness of breath or dyspnea on exertion. No urgency or frequency. No nausea, vomiting, diarrhea or constipation. DISCHARGE INSTRUCTIONS: We discussed phlebitis, cystitis, mastitis, endometritis, and cellulitis, diet, exercise, pain management, perineal and breast care. Patient has plans to pickup her medications at [place], and six-week checkup at [facility]. All questions were answered; 20 minute discussion. Patient was discharged improved.
== END 2021-05-08 12:50 | disposition home or self-care (01) | DRG 806 ==
LOC: M LDI 14:11 → M OBS 05-06 17:08
PROVIDERS: ADMIT Registered Nurse Maternal Newborn; ATTEND Registered Nurse Maternal Newborn
PROC: 3E033VJ Introduction of Other Hormone into Peripheral Vein, Percutaneous Approach (ICD-10-PCS; 2021-05-05)
PROC: 10E0XZZ Delivery of Products of Conception, External Approach (ICD-10-PCS; principal; 2021-05-06)
PROC: 0KQM0ZZ Repair Perineum Muscle, Open Approach (ICD-10-PCS; 2021-05-06)
PROC: 0UQMXZZ Repair Vulva, External Approach (ICD-10-PCS; 2021-05-06)
DX: O24.12 Pre-existing type 2 diabetes mellitus, in childbirth (principal); Z37.0 Single live birth; O26.833 Pregnancy related renal disease, third trimester; Z3A.39 39 weeks gestation of pregnancy; N18.2 Chronic kidney disease, stage 2 (mild); E28.2 Polycystic ovarian syndrome; O99.284 Endocrine, nutritional and metabolic diseases complicating childbirth; O99.02 Anemia complicating childbirth; E83.42 Hypomagnesemia; D50.9 Iron deficiency anemia, unspecified; E11.22 Type 2 diabetes mellitus with diabetic chronic kidney disease; E87.6 Hypokalemia; F41.9 Anxiety disorder, unspecified; O99.344 Other mental disorders complicating childbirth; E66.01 Morbid (severe) obesity due to excess calories; O99.214 Obesity complicating childbirth; Z79.84 Long term (current) use of oral hypoglycemic drugs; Z79.899 Other long term (current) drug therapy; O99.824 Streptococcus B carrier state complicating childbirth; O70.1 Second degree perineal laceration during delivery; O71.82 Other specified trauma to perineum and vulva; O99.892 Other specified diseases and conditions complicating childbirth

== ENCOUNTER → 2021-06-12 | Outpatient (REF) | payer OTHER ==
[~2021-06-12] MED LIST changes: +IBUP-1022 PO; +INSULANT SC
== END ==
LOC: M LAB REF 17:18
PROVIDERS: ATTEND Internal Medicine Nephrology
DX: E83.42 Hypomagnesemia (principal)

== ENCOUNTER → 2021-09-26 | Outpatient (REF) | payer OTHER ==
[2021-09-26 17:34] LABS: MAGNESIUM LEVEL 1.7 MG/DL (1.8-2.4); PERCENT SATURATION 30.7 % (13.2-45.0)
== END ==
LOC: M LAB REF 17:02
PROVIDERS: ATTEND Nurse Practitioner Family
DX: E83.42 Hypomagnesemia (principal); D50.9 Iron deficiency anemia, unspecified

== ENCOUNTER 2021-12-04 11:00 | Emergency (ER) | payer OTHER ==
[~2021-12-04] VITALS: Ht 152.4 cm; Wt 107.7 kg
[2021-12-04 11:00] VITALS: BP 141/78
[2021-12-04] MEDS ORDERED: MAGNESSIUM PO (11:44)
[2021-12-04] MEDS ORDERED: POTA1TAB23 (11:44)
== END 2021-12-04 14:46 | disposition left against medical advice (07) ==
LOC: M ED 11:00
DX: Z53.29 Procedure and treatment not carried out because of patient's decision for other reasons (principal)

== ENCOUNTER → 2022-01-27 | Outpatient (REF) | payer OTHER ==
[~2022-01-27] MED LIST changes: +MAGNESSIUM PO; +POTA1TAB23
[2022-01-27 18:25] LABS: PERCENT SATURATION 21.4 % (13.2-45.0)
== END ==
LOC: M LAB REF 16:47
PROVIDERS: ATTEND Nurse Practitioner Family
DX: D50.9 Iron deficiency anemia, unspecified (principal)